=== PATIENT | female | born 1970 | race Caucasian/White ===

== ENCOUNTER 2016-09-30 17:55 | Emergency (ER) | payer OTHER, MEDICAID ==
--- NOTE | 2016-09-30 18:00 | EDPHY ---
H & P Time Seen by Provider: 09/30/16 17:57 HPI/ROS: CHIEF COMPLAINT: Acute exacerbation of chronic chest pain HISTORY OF PRESENT ILLNESS: The patient presents to the emergency department with an acute exacerbation of chronic chest pain which began several hours ago. The patient has a complicated past medical history including hydrocephalus and spina bifida. The patient is status post right BKA. The patient has had several hospitalizations over the past 2 months. She was admitted initially for evaluation of chest pain and had a negative evaluation for acute pulmonary embolism or ischemia. The patient subsequently return to the ED received an evaluation including anti medics and pain medications and was discharged home. The patient returned shortly thereafter and was readmitted to the medicine service. During that time she was evaluated for upper abdominal pain with a CT scan of her abdomen pelvis which was normal. 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 She denies any fever or flank pain. She complains of an anterior chest pain and associated vomiting. In reviewing her records this is a fairly typical presentation of her prior visits. The paramedics do report that the patient is reportedly on the no narcotics list at her custodial. REVIEW OF SYSTEMS: A comprehensive 10 point review of systems is otherwise negative aside from elements mentioned in the history of present illness. Source: Patient Exam Limitations: No limitations - Medical/Surgical History Hx Asthma: No Hx Chronic Respiratory Disease: No Hx Diabetes: No Hx Cardiac Disease: No Hx Renal Disease: No Hx Cirrhosis: No Hx Alcoholism: No Hx HIV/AIDS: No Hx Splenectomy or Spleen Trauma: No Other PMH: right BKA, urostomy, anxiety, depression, PE, high cholesterol, PTSD , hydrocephalus/arnold chiari malformation s/p vp strategy shunt,amputated toes from left foot, pancreatitis Apr 2016 - Social History Smoking Status: Never smoked - Physical Exam Exam: General Appearance: Alert, no distress Eyes: Pupils equal and round no pallor or injection ENT, Mouth: Mucous membranes moist Respiratory: There are no retractions, lungs are clear to auscultation Cardiovascular: Regular rate and rhythm Gastrointestinal: Abdomen is soft and nontender, no masses, bowel sounds normal Neurological: A&O, normal motor function, normal sensory exam, normal cranial nerves Skin: Warm and dry, no rashes Musculoskeletal: Neck is supple nontender Extremities: Right BKA Constitutional: Initial Vital Signs Temperature (C) 36.8 C 09/30/16 18:04 Heart Rate 98 09/30/16 18:04 Respiratory Rate 18 09/30/16 18:04 Blood Pressure 125/75 H 09/30/16 18:04 O2 Sat (%) 96 09/30/16 18:04 O2 Delivery Mode Room Air Allergies/Adverse Reactions: ondansetron HCl [From Zofran (as hydrochloride)] Allergy (Severe, Verified 08/20 14:24) Other-Enter Comments amoxicillin trihydrate [From Augmentin] Allergy (Verified 08/20/16 14:24) ketorolac tromethamine [From Toradol] Allergy (Verified 08/13/16 04:05) potassium clavulanate [From Augmentin] Allergy (Verified 08/20/16 14:24) tramadol Allergy (Verified 08/20/16 14:24) vancomycin Allergy (Verified 08/20/16 14:24) Home Medications: Medication Instructions Recorded ALPRAZolam [Xanax 0.25 MG (*)] 0.25 mg PO TID PRN 08/13/16 Atorvastatin Calcium [Lipitor 40 40 mg PO DAILY 08/13/16 mg (*)] Ergocalciferol [Vitamin D2 (*)] 50,000 unit PO TU 08/13/16 Gabapentin [Neurontin 300 MG (*)] 600 mg PO TID 08/13/16 Levothyroxine [Synthroid 50 mcg 50 mcg PO DAILY06 08/13/16 (*)] Promethazine HCl [Phenergan 25mg 25 mg PO DAILY PRN 08/13/16 (*)] Sertraline HCl [Zoloft 50mg (*)] 50 mg PO DAILY 08/13/16 Topiramate [Topamax 100MG (*)] 100 mg PO HS 08/13/16 tiZANidine HCL [Zanaflex 2MG (*)] 2 mg PO BID 08/13/16 risperiDONE [Risperdal] 2 mg PO HS 08/20/16 Acetaminophen [Tylenol 325mg (*)] 650 mg PO Q4HRS PRN #0 tab 08/22/16 Ciprofloxacin [Cipro] 500 mg PO BID@1000,2000 #13 tab 08/22/16 Magnesium Hydroxide [Milk of 30 ml PO DAILY PRN #0 udcup 08/22/16 Magnesia (*)] Polyethylene Glycol 3350 [Miralax 17 gm PO DAILY #0 pkt 08/22/16 17 gm (*)] Sennosides/Docusate Sodium 1 - 2 tab PO BID #0 tab 08/22/16 [Senokot-S] oxyCODONE IR [Oxycodone Ir (*)] 5 mg PO Q4HRS PRN #0 tab 08/22/16 Promethazine HCl [Phenergan 25mg 25 mg PO TID PRN #20 tab 09/30/16 (*)] oxyCODONE/APAP 5/325 [Percocet 1 - 2 tab PO Q6-8PRN PRN #20 tab 09/30/16 5/325 (RX)] Medical Decision Making ED Course/Re-evaluation: I reviewed the patient's past medical records including her 3 prior ED visits, 2 hospitalizations, CT scan of the chest, CT scan of the abdomen and blood work. EKG in the emergency department is unrevealing. I did attempt to reach Dr. Aguilar and was unsuccessful. I did speak with his midlevel provider who was unable to provide much history on the patient. The patient does not appear to be on a no narcotics list. The patient does have a remote history of narcotic abuse per her report. The patient will be discharged back to the custodial with a prescription for Phenergan and Percocet. I will defer to Dr Aguilar to address her ongoing pain needs. She has had an extensive workup of chest pain and abdominal pain to date and I do not feel this needs to be repeated. Differential Diagnosis: Differential diagnosis considered includes pericarditis, chronic chest pain, intra-abdominal infection, arrhythmia - Data Points Medications Given: Discontinued Medications Ondansetron HCl (Zofran Odt) 4 mg PO EDNOW ONE Stop: 09/30/16 18:28 Last Admin: 09/30/16 18:38 Dose: Not Given Oxycodone/Acetaminophen (Percocet 5/325) 2 tab PO EDNOW ONE Stop: 09/30/16 19:32 Last Admin: 09/30/16 19:38 Dose: 2 tab Promethazine HCl (Phenergan) 12.5 mg PO EDNOW ONE Stop: 09/30/16 18:40 Last Admin: 09/30/16 18:43 Dose: 12.5 mg Departure - Departure Disposition: Home, Routine, Self-Care Clinical Impression: Chronic chest pain, Nausea Condition: Good Instructions: Chest Pain (ED) Additional Instructions: 1. Please discuss your pain medications with your regular physician Dr. Aguilar. 2. Phenergan as needed for nausea. 3. Percocet as needed for pain. Referrals: LOIS JOHNSON [Primary Care Provider] - As per Instructions Prescriptions: oxyCODONE/APAP 5/325 [Percocet 5/325 (RX)] 1 - 2 tab PO Q6-8PRN PRN #20 tab PRN Reason: for pain Promethazine HCl [Phenergan 25mg (*)] 25 mg PO TID PRN #20 tab PRN Reason: for pain
[2016-09-30 18:06] VITALS: O2SAT 96
[2016-09-30] MEDS ORDERED: ONDANSETRON DISINTEGRATING 4 MG TAB PO ONE (18:27)
[2016-09-30] MEDS ORDERED: PROMETHAZINE HCL 25 MG TAB PO ONE (18:39)
[2016-09-30] MEDS ORDERED: OXYCODONE/APAP 5/325 TAB PO ONE (19:31)
--- NOTE | 2016-09-30 19:52 | CPEKG ---
Heart Rate: 92 RR Interval: 652 P-R Interval: 128 QRSD Interval: 92 QT Interval: 356 QTC Interval: 441 P [place]: 38 QRS [place]: 70 T Wave [place]: 43 EKG Severity - ABNORMAL ECG - EKG Impression: SINUS RHYTHM EKG Impression: PROBABLE INFERIOR INFARCT, OLD Electronically Signed By: aHny Valdivia 30-Sep-2016 20:00:37
[2016-09-30 20:28] VITALS: BP 91/77; PULSE 90; RESP 20; TEMP 98.1
== END 2016-09-30 21:11 | disposition home or self-care (01) ==
LOC: EDUNIT#
DX: R07.9 Chest pain, unspecified (principal); G89.29 Other chronic pain; R11.0 Nausea

== ENCOUNTER 2016-10-06 22:13 | Emergency (ER) | payer OTHER, MEDICAID ==
[2016-10-06] MEDS ORDERED: ONDANSETRON 4 MG/2 ML VIAL IVP ONE (22:25)
[2016-10-06 22:26] VITALS: PULSE 98; RESP 16; TEMP 97.9; O2SAT 95
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
--- NOTE | 2016-10-06 23:13 | CPEKG ---
Heart Rate: 86 RR Interval: 698 P-R Interval: 152 QRSD Interval: 88 QT Interval: 376 QTC Interval: 450 P [place]: 43 QRS [place]: 41 T Wave [place]: 45 EKG Severity - NORMAL ECG - EKG Impression: SINUS RHYTHM Electronically Signed By: Julisa Hanson 07-Oct-2016 06:37:40
[2016-10-06] MEDS ORDERED: ONDANSETRON 4 MG/2 ML VIAL ONE (23:26)
[2016-10-06 23:33] LABS: % IMMATURE GRANULYOCYTES 0.2 % (0.0-1.1); ABSOLUTE IMMATURE GRANULOCYTES 0.01 10^3/uL (0.00-0.10); ADD DIFF? NO; ADD MORPH? NO; ADD SCAN? NO; ATYPICAL LYMPHOCYTE FLAG 10 (0-99); FRAGMENT RBC FLAG 0 (0-99); HEMATOCRIT 34.5 % (38.0-47.0); HEMOGLOBIN 11.5 g/dL (12.6-16.3); LEFT SHIFT FLG 0 (0-99); LIPEMIA HEMOLYSIS FLAG 80 (0-99); MEAN CELL HEMOGLOBIN 29.7 pg (27.9-34.1); MEAN CELL HEMOGLOBIN CONCENTR. 33.3 g/dL (32.4-36.7); MEAN CELL VOLUME 89.1 fL (81.5-99.8); MEAN PLATELET VOLUME 8.9 fL (8.7-11.7); PLATELET CLUMPS FLAG 0 (0-99); PLATELET COUNT 223 10^3/uL (150-400); RED BLOOD CELL COUNT 3.87 10^6/uL (4.18-5.33); RED CELL DISTRIBUTION WIDTH 15.4 % (11.5-15.2)
[2016-10-06] MEDS ORDERED: PROMETHAZINE HCL 25 MG/ML VIAL ONE (23:40)
[2016-10-06] MEDS ORDERED: PROMETHAZINE HCL 25 MG/ML VIAL IVP ONE (23:44)
--- NOTE | 2016-10-06 23:55 | DX ---
AP Upright and Lateral Chest History: Chest pain. Findings: The heart and mediastinum are normal. Pulmonary vascularity is normal. The lungs are clear. There is no pleural fluid. A pneumothorax is not identified. Incidentally, a ventriculoperitoneal sh unt traverses the chest on the right side. An azygos lobe is seen. Impression: Chest negative for acute abnormality with findings as detailed above.
[2016-10-06 23:56] LABS: ANION GAP 11 mEq/L (8-16); CALCIUM 9.1 mg/dL (8.5-10.4); CARBON DIOXIDE 22 mEq/l (22-31); CHLORIDE 109 mEq/L (97-110); CREATININE 0.8 mg/dL (0.6-1.0); GLOMERULAR FILTRATION RATE > 60; GLUCOSE 128 mg/dL (70-100); POTASSIUM 3.3 mEq/L (3.5-5.2); SODIUM 142 mEq/L (134-144)
[2016-10-07 00:07] LABS: TROPONIN I < 0.012 ng/mL (0-0.034)
[2016-10-07 01:38] VITALS: BP 101/75
[2016-10-07] MEDS ORDERED: NS 1,000 ML IV ONE (01:38)
== END 2016-10-07 01:44 | disposition home or self-care (01) ==
LOC: EDUNIT#
DX: R07.89 Other chest pain (principal); G89.29 Other chronic pain; Q05.9 Spina bifida, unspecified
CPT/HCPCS: 71020; 93005; 96361; 96374; 99285; J2405; J2550

== ENCOUNTER 2016-10-10 20:05 | Emergency (ER) | payer OTHER, MEDICAID ==
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
[2016-10-10] MEDS ORDERED: NS 1,000 ML IV ONE (20:32)
[2016-10-10] MEDS ORDERED: fentaNYL 100 MCG/2 ML INJ IVP ONE (20:33)
[2016-10-10] MEDS ORDERED: PROMETHAZINE HCL 25 MG/ML VIAL IVP ONE (20:33)
--- NOTE | 2016-10-10 20:33 | CPEKG ---
Heart Rate: 108 RR Interval: 556 P-R Interval: 140 QRSD Interval: 94 QT Interval: 348 QTC Interval: 467 P [place]: 50 QRS [place]: 68 T Wave [place]: 52 EKG Severity - ABNORMAL ECG - EKG Impression: SINUS TACHYCARDIA EKG Impression: PROBABLE INFERIOR INFARCT, OLD Electronically Signed By: Tata Mendoza 10-Oct-2016 20:36:56
[2016-10-10 21:01] LABS: % IMMATURE GRANULYOCYTES 0.2 % (0.0-1.1); ABSOLUTE IMMATURE GRANULOCYTES 0.01 10^3/uL (0.00-0.10); ADD DIFF? NO; ADD MORPH? NO; ADD SCAN? YES; ATYPICAL LYMPHOCYTE FLAG 0 (0-99); FRAGMENT RBC FLAG 0 (0-99); HEMATOCRIT 39.1 % (38.0-47.0); HEMOGLOBIN 13.2 g/dL (12.6-16.3); LEFT SHIFT FLG 0 (0-99); LIPEMIA HEMOLYSIS FLAG 90 (0-99); MEAN CELL HEMOGLOBIN 30.3 pg (27.9-34.1); MEAN CELL HEMOGLOBIN CONCENTR. 33.8 g/dL (32.4-36.7); MEAN CELL VOLUME 89.7 fL (81.5-99.8); MEAN PLATELET VOLUME 9.6 fL (8.7-11.7); PLATELET COUNT 227 10^3/uL (150-400); RED BLOOD CELL COUNT 4.36 10^6/uL (4.18-5.33); RED CELL DISTRIBUTION WIDTH 15.1 % (11.5-15.2)
[2016-10-10 21:04] LABS: PLATELET CLUMPS FLAG 300 (0-99)
[2016-10-10 21:18] LABS: ANION GAP 14 mEq/L (8-16); CALCIUM 9.4 mg/dL (8.5-10.4); CARBON DIOXIDE 22 mEq/l (22-31); CHLORIDE 107 mEq/L (97-110); CREATININE 0.9 mg/dL (0.6-1.0); GLOMERULAR FILTRATION RATE > 60; GLUCOSE 106 mg/dL (70-100); SODIUM 143 mEq/L (134-144)
[2016-10-10 21:24] LABS: SCAN NEGATIVE
[2016-10-10 21:30] LABS: TROPONIN I < 0.012 ng/mL (0-0.034)
[2016-10-10] MEDS ORDERED: PROMETHAZINE HCL 25 MG/ML VIAL IM ONE (21:53)
--- NOTE | 2016-10-10 22:10 | DX ---
PA and Lateral Chest History: Chest pain. Comparison to the prior study October 06, 2016. Findings: The heart and mediastinum are normal. Pulmonary vascularity is normal. The lungs are clear. There is no pleural fluid. A pneumothorax is not identified. A ventriculoperitoneal shunt catheter i s seen traversing the chest anteriorly. There has been no significant change from the prior study. Impression: Stable chest negative for acute cardiopulmonary abnormality. Specifically, a source for c hest pain is not identified.
[2016-10-10 22:11] VITALS: RESP 16
[2016-10-10 23:26] VITALS: BP 89/71; PULSE 71; TEMP 97.9; O2SAT 91
--- NOTE | 2016-10-11 06:31 | DX ---
Upright Abdomen Reason for examination: Abdominal pain. Findings: Minimally dilated bowel loops are seen in the mid abdomen. Surgical clips in the right uppe r quadrant are consistent with previous cholecystectomy. No free air is identified. A ventriculoperit jones catheter is seen traversing the abdomen with the distal end in the pelvis, not fully characteri zed. No aggressive osseous lesion is seen. Impression: Nonspecific bowel gas pattern with minimally dilated bowel loops seen in the mid abdomen on the right side.
== END 2016-10-11 00:20 | disposition home or self-care (01) ==
LOC: EDUNIT#
DX: R07.9 Chest pain, unspecified (principal); G89.29 Other chronic pain
CPT/HCPCS: 71020; 74000; 93005; 96372; 99285; J2550

== ENCOUNTER → 2016-10-13 | Outpatient (CLI) | payer OTHER, MEDICAID ==
--- NOTE | 2016-10-13 15:59 | DX ---
Abdominal radiographs, 2 views, supine exam. HISTORY: Abdominal pain. Evaluate bowel gas. Comparison examination: October 10, 2016. FINDINGS: Nonspecific bowel gas pattern is identified without evidence of significant retained fecal material or obstructive changes. A ventriculoperitoneal shunt catheter overlies the upper abdomen and left hemipelvis. Prior decompressive laminectomy or dural ectasia and dysraphia at L4, L5, and the u pper sacrum. IMPRESSION: 1. Nonspecific bowel gas pattern without significant retained fecal material, stable from prior exam.
== END ==
LOC: BMCIMAGING 15:23
PROVIDERS: ATTEND Family Medicine
DX: R93.5 Abnormal findings on diagnostic imaging of other abdominal regions, including retroperitoneum (principal); R10.12 Left upper quadrant pain

== ENCOUNTER 2016-10-17 12:41 | Emergency (ER) | payer OTHER, MEDICAID ==
--- NOTE | 2016-10-17 13:04 | CPEKG ---
Heart Rate: 89 RR Interval: 674 P-R Interval: 136 QRSD Interval: 98 QT Interval: 372 QTC Interval: 453 P [place]: 59 QRS [place]: 60 T Wave [place]: 53 EKG Severity - BORDERLINE ECG - EKG Impression: SINUS RHYTHM EKG Impression: BORDERLINE INFERIOR Q WAVES Electronically Signed By: Sera Aguiar 17-Oct-2016 20:29:23
[2016-10-17] MEDS ORDERED: ONDANSETRON DISINTEGRATING 4 MG TAB PO ONE (13:23)
[2016-10-17] MEDS ORDERED: NS 500 ML IV ONE (13:23)
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
[2016-10-17] MEDS ORDERED: ALTEPLASE 2 MG VIAL IVP PRN (14:15)
--- NOTE | 2016-10-17 16:42 | IR ---
Imaging-Guided Peripherally Inserted Central Catheter History: Poor IV access. Chest pain.. Prophylactic Antibiotic: Cefazolin was not ordered and administered for antimicrobial prophylaxis be cause it was not medically necessary for this procedure. VTE Prophylaxis: There is not an order for VTE prophylaxis to be given within 24 hours after procedu re end time because it was not medically necessary for this procedure. Crosscutting Measure: Patient's current list of medications including all known prescriptions, over- the-counters, herbals, and vitamin/mineral/dietary supplements are reviewed. Medications' name, dosa ge, frequency, and route of administration are confirmed. Technique: Following informed consent, the right arm was prepped and draped in sterile fashion. 1% Xy locaine was used for local anesthetic. All elements of maximal sterile barrier technique including cap, mask, sterile gown, sterile gloves, large sterile sheet, hand hygiene, and 2% chlorhexidine for cutaneous antisepsis, followed. Ultrasound evaluation of potential access site was performed. After successfully identifying a patent vessel, ultrasound guidance was used to puncture the vein. A permanent recording was created for the patient's record. Ultrasound transducer was placed in sterile sleeve and used for real-time imaging guidance over steri le gel to enter the basilic vein. 0.018 measuring wire was passed centrally under fluoroscopic contro l. A skin royce with scalpel blade was followed by removing the access needle. A 5 Cameroonian pee-away she ath was followed by a 5 Cameroonian single-lumen central catheter, trimmed to 37 cm length. The tip of t he catheter was positioned centrally and the guidewire removed. A single fluoroscopic spot image was obtained in inspiration. The hub of the catheter was fixed to the skin using a sterile StatLock adhes ki device, and a sterile dressing was applied. The catheter was irrigated. Findings: The tip of the central catheter terminates at the junction of the superior vena cava and th e right atrium. Fluoroscopy: 0.1 minutes, 1 images Impression: 5 Cam[place]onian double lumen peripherally inserted central catheter is ready to use.
[2016-10-17 16:55] LABS: % IMMATURE GRANULYOCYTES 0.1 % (0.0-1.1); ABSOLUTE IMMATURE GRANULOCYTES 0.01 10^3/uL (0.00-0.10); ADD DIFF? NO; ADD MORPH? NO; ADD SCAN? NO; ATYPICAL LYMPHOCYTE FLAG 10 (0-99); FRAGMENT RBC FLAG 0 (0-99); HEMOGLOBIN 12.4 g/dL (12.6-16.3); LEFT SHIFT FLG 0 (0-99); LIPEMIA HEMOLYSIS FLAG 80 (0-99); MEAN CELL HEMOGLOBIN CONCENTR. 33.5 g/dL (32.4-36.7); MEAN CELL VOLUME 89.4 fL (81.5-99.8); MEAN PLATELET VOLUME 8.3 fL (8.7-11.7); PLATELET CLUMPS FLAG 0 (0-99); PLATELET COUNT 244 10^3/uL (150-400); RED BLOOD CELL COUNT 4.14 10^6/uL (4.18-5.33); RED CELL DISTRIBUTION WIDTH 14.7 % (11.5-15.2)
[2016-10-17] MEDS ORDERED: ONDANSETRON 4 MG/2 ML VIAL ONE (16:57)
[2016-10-17 17:05] LABS: ALANINE AMINOTRANSFERASE 40 IU/L (9-52); ALBUMIN 3.8 g/dL (3.5-5.0); ALKALINE PHOSPHATASE 82 IU/L (38-126); ANION GAP 12 mEq/L (8-16); ASPARTATE AMINOTRANSFERASE 14 IU/L (14-46); BILIRUBIN,TOTAL 0.7 mg/dL (0.1-1.4); BILIRUBIN-CONJUGATED 0.7 mg/dL (0.0-0.5); CALCIUM 9.3 mg/dL (8.5-10.4); CARBON DIOXIDE 23 mEq/l (22-31); CHLORIDE 111 mEq/L (97-110); CREATININE 0.9 mg/dL (0.6-1.0); GLOMERULAR FILTRATION RATE > 60; GLUCOSE 118 mg/dL (70-100); POTASSIUM 3.9 mEq/L (3.5-5.2); SODIUM 146 mEq/L (134-144)
[2016-10-17 17:17] LABS: TROPONIN I < 0.012 ng/mL (0-0.034)
[2016-10-17] MEDS ORDERED: PROMETHAZINE HCL 25 MG/ML INJ IVP ONE (17:22)
[2016-10-17] MEDS ORDERED: PROMETHAZINE HCL 25 MG/ML INJ ONE (17:23)
[2016-10-17] MEDS ORDERED: IOPAMIDOL (ISOVUE 370) 100 ML BTL IV ONE (17:31)
[2016-10-17] MEDS ORDERED: OXYCODONE/APAP 5/325 TAB PO ONE (18:19)
[2016-10-17 18:34] VITALS: TEMP 97.7
--- NOTE | 2016-10-17 18:37 | CT ---
CT Chest Pulmonary Angiogram With Contrast Enhancement and Multiplanar Reconstructions 2016 at 1743 Hours History: Chest pain, shortness of breath, elevated D-dimer, prior pulmonary emboli. Comparison: CT from July 2016. Technique: 1.25-mm axial multidetector helical CT angiogram imaging was performed through the chest w hile 90 mL Isovue-370 were injected intravenously without complication. The images were then transfe rred to an independent workstation where multiplanar and three-dimensional reconstructions were perfo rmed by the interpreting physician and reviewed at multiple windows. Dose reduction techniques were u tilized. CT Pulmonary Angiogram Findings: No CT evidence of definite pulmonary thromboemboli. No aortic aneur ysm or dissection. Mild cardiomegaly and mild pericardial effusion. CT Chest Findings: Groundglass opacities in both lungs which may represent mild congestive heart fail ure. Right upper azygos lobe. No pleural effusion or definite focal pneumonia. Impressions: 1. No definite pulmonary thromboemboli. 2. No aortic aneurysm or dissection. 3. Cardiomegaly and minimal pericardial effusion. 4. Groundglass opacities in both lungs which may represent mild congestive heart failure without defi nite focal pneumonia. Findings and recommendations discussed with emergency department physician, Dr. Aguiar at 1810 hours today. Final report concurs with initial preliminary interpretation. A Critical Abnormality Doc Only message has been documented for FELICIA AGUIAR in the [employer] Critical Result system on 10/17/2016 18:15, Message ID [id number].
[2016-10-17 18:55] LABS: COLOR YELLOW; LEUKOCYTE ESTERASE,URINE TRACE (NEGATIVE); NITRITE,URINE NEGATIVE (NEGATIVE)
[2016-10-17 19:00] LABS: MUCUS TRACE /lpf (NONE-1+)
[2016-10-17 21:01] VITALS: BP 121/101; PULSE 78; RESP 16; O2SAT 96
== END 2016-10-17 20:45 | disposition home or self-care (01) ==
LOC: EDUNIT#
PROC: 02HV33Z Insertion of Infusion Device into Superior Vena Cava, Percutaneous Approach (ICD-10-PCS; principal; 2016-10-17)
DX: R07.2 Precordial pain (principal)
CPT/HCPCS: 36558; 71275; 77001; 93005; 96361; 96374; 96375; 99285; C1751; J0696; J2405; J2550; Q9967

== ENCOUNTER 2016-10-29 11:32 | Inpatient (IN) | payer OTHER, MEDICAID ==
[2016-10-29] MEDS ORDERED: NS 1,000 ML IV ONE (11:49)
--- NOTE | 2016-10-29 12:16 | EDPHY ---
H & P Stated Complaint: possible UTI, N/V, Source: Patient Exam Limitations: No limitations - Personal History LMP (Females 10-55): Post Menopausal Current Tetanus/Diphtheria Vaccine: No Current Tetanus Diphtheria and Acellular Pertussis (TDAP): No - Medical/Surgical History Hx Asthma: No Hx Chronic Respiratory Disease: No Hx Diabetes: No Hx Cardiac Disease: No Hx Renal Disease: No Hx Cirrhosis: No Hx Alcoholism: No Hx HIV/AIDS: No Hx Splenectomy or Spleen Trauma: No Other PMH: right BKA, urostomy, anxiety, depression, PE, high cholesterol, PTSD , hydrocephalus/arnold chiari malformation s/p vp global shunt,amputated toes from left foot, pancreatitis Apr 2016, spina bifida- C-diff diagnosed 07/2016 - Social History Smoking Status: Never smoked Time Seen by Provider: 10/29/16 11:43 HPI/ROS: CHIEF COMPLAINT: "I have a UTI" HISTORY OF PRESENT ILLNESS: The patient feels that she has a urinary tract infection. Symptoms started 2 days ago with flank pain, chills, and discomfort similar to previous. She has a history of urostomy by ileal conduit. This has been since due to neurogenic bladder. She has no change in output in the urine although it is a little bit darker. She has some generalized abdominal pain. No chest pain or shortness of breath. No rash or lesions. No other associated complaints or modifying factors. Changes the bag every 7 days. PREVIOUS ABDOMINAL SURGERIES/DIAGNOSES: Neurogenic bladder with urostomy NPO: this morning early REVIEW OF SYSTEMS: Ten systems reviewed and are negative unless otherwise noted in the HPI EXAMINATION: General Appearance: Alert, no distress Head: normocephalic, atraumatic Eyes: Pupils equal and round, no conjunctival pallor or injection ENT, Mouth: Mucous membranes moist. Uvula midline. No lesions. Neck: Normal inspection, supple, non-tender Respiratory: Lungs are clear to auscultation . No wheezing, rhonchi or crackles. Cardiovascular: Tachycardic rate with regular rhythm. Gastrointestinal: Abdomen is Soft with mild generalized tenderness. No point tenderness. No rigidity or tympany. Right lower quadrant urostomy with cloudy urine in bag . Right CVA tenderness that is mild. Nonacute abdomen. Neurological: A&O x4 with slow cognition. Nonfocal. Strength symmetric in both limbs. Skin: Warm and dry, no rash Extremities: Nontender. right lower extremity status post [id number] amputation remotely. Range of motion intact. Psychiatric: Mood and affect normal DIFFERENTIAL DIAGNOSES: Including but not limited to Urosepsis, pyelonephritis, UTI, enteritis, viral illness MDM: 11:45 a.m. complaints of urinary tract infection the patient with the urostomy by ileal conduit. Feels the same to her as she has had in the past. She is nonfocal does have some slow cognition and reportedly was confused at her sending facility. We did get noticed that she would be coming to us due to the possibility of pyelonephritis versus sepsis. She is mildly hypertensive and mildly tachycardic. She is awake and alert in no acute distress. I did immediately order the sepsis workup upon examination. 1:55 p.m. UTI with probable pyelonephritis and possible sepsis. Lactic acid is 1.1, though she does not meet severe sepsis criteria at this point. Her vital signs remained within acceptable limits. I discussed the case with the hospitalist and they agree to admit her. I have also discussed the case with Dr. Bauer. At this time Dr. Bauer will assume care of the patient. SUPERVISION: Patient was evaluated in conjunction with the supervising physician. Please see their note for details. (Westley Stearns) Constitutional: Initial Vital Signs Temperature (C) 99.0 F 10/29/16 11:33 Heart Rate 117 H 10/29/16 11:33 Respiratory Rate 18 10/29/16 11:33 Blood Pressure 94/79 L 10/29/16 11:33 O2 Sat (%) 96 10/29/16 11:33 O2 Delivery Mode Room Air Allergies/Adverse Reactions: ondansetron HCl [From Zofran (as hydrochloride)] Allergy (Severe, Verified 08/20 14:24) Other-Enter Comments amoxicillin trihydrate [From Augmentin] Allergy (Verified 08/20/16 14:24) ketorolac tromethamine [From Toradol] Allergy (Verified 08/13/16 04:05) potassium clavulanate [From Augmentin] Allergy (Verified 08/20/16 14:24) tramadol Allergy (Verified 08/20/16 14:24) vancomycin Allergy (Verified 08/20/16 14:24) Home Medications: Medication Instructions Recorded ALPRAZolam [Xanax 0.25 MG (*)] 0.25 mg PO TID PRN 08/13/16 Atorvastatin Calcium [Lipitor 40 40 mg PO DAILY 08/13/16 mg (*)] Ergocalciferol [Vitamin D2 (*)] 50,000 unit PO TU 08/13/16 Gabapentin [Neurontin 300 MG (*)] 600 mg PO TID 08/13/16 Levothyroxine [Synthroid 50 mcg 50 mcg PO DAILY06 08/13/16 (*)] Sertraline HCl [Zoloft 50mg (*)] 50 mg PO DAILY 08/13/16 Topiramate [Topamax 100MG (*)] 100 mg PO HS 08/13/16 tiZANidine HCL [Zanaflex 2MG (*)] 2 mg PO BID 08/13/16 risperiDONE [Risperdal] 2 mg PO HS 08/20/16 Acetaminophen [Tylenol 325mg (*)] 650 mg PO Q4HRS PRN #0 tab 08/22/16 Magnesium Hydroxide [Milk of 30 ml PO DAILY PRN #0 udcup 08/22/16 Magnesia (*)] oxyCODONE/APAP 5/325 [Percocet 1 - 2 tab PO Q6-8PRN PRN #20 tab 09/30/16 5/325 (RX)] Methenamine Delisa [Hiprex 1 gm (*)] 1 gm PO DAILY 10/29/16 Polyethylene Glycol 3350 [Miralax 17 gm PO DAILY PRN 10/29/16 17 gm (*)] Promethazine HCl [Phenergan 25mg 25 mg PO TID PRN 10/29/16 (*)] Medical Decision Making - Diagnostics Imaging: Chest x-ray independently reviewed by me reveals no acute disease. (Krissy Bauer) ED Course/Re-evaluation: 3:00 p.m.-this patient was seen and examined by me. She has a urinary tract infection and is taking Keflex. She continues to have foul-smelling urine, right flank pain and began vomiting last night. She feels that she has a persistent urinary tract infection. However, she also generalized abdominal discomfort and elevated LFTs. CT scan is pending. She has a very difficult IV access, so we are waiting for a PICC line to be placed. In the meanwhile ultrasound guidance was used by me to place a left upper extremity peripheral IV. She has a slight cough, which is unchanged. Chest is clear to auscultation and I do not suspect pneumonia. Abdomen is soft, mild right upper quadrant tenderness, without peritoneal signs. (Krissy Bauer) Differential Diagnosis: Differential diagnosis includes UTI, pyelonephritis, pneumonia, cholecystitis, influenza, cellulitis. (Krissy Bauer) - Data Points Laboratory Results: Laboratory Results 10/29/16 13:45 10/29/16 12:45 10/29/16 10/29/16 10/29/16 13:45 13:10 12:45 WBC REJ REJ RBC REJ REJ Hgb REJ REJ Hct REJ REJ MCV REJ REJ MCH REJ REJ MCHC REJ REJ RDW REJ REJ Plt Count REJ REJ MPV REJ REJ Neut % (Auto) REJ REJ Lymph % (Auto) REJ REJ Hawkins % (Auto) REJ REJ Eos % (Auto) REJ REJ Baso % (Auto) REJ REJ Nucleat RBC Rel Count REJ REJ Absolute Neuts (auto) REJ REJ Absolute Lymphs (auto) REJ REJ Absolute Monos (auto) REJ REJ Absolute Eos (auto) REJ REJ Absolute Basos (auto) REJ REJ Absolute Nucleated RBC REJ REJ Immature Gran % REJ REJ Immature Gran # REJ REJ PT 13.5 SEC (12.0-15.0) INR 1.04 (0.83-1.16) APTT 20.0 L SEC (23.0-38.0) VBG Lactic Acid 1.1 mmol/L REJ (0.7-2.1) Sodium 140 mEq/L (134-144) Potassium 3.9 mEq/L (3.5-5.2) Chloride 104 mEq/L (97-110) Carbon Dioxide 21 L mEq/l (22-31) Anion Gap 15 mEq/L (8-16) BUN 24 H mg/dL (7-23) Creatinine 1.0 mg/dL (0.6-1.0) Estimated GFR 59 Glucose 110 H mg/dL (70-100) Calcium 9.4 mg/dL (8.5-10.4) Total Bilirubin 1.2 mg/dL (0.1-1.4) Conjugated Bilirubin 0.5 mg/dL (0.0-0.5) Unconjugated Bilirubin 0.7 mg/dL (0.0-1.1) AST 155 H IU/L (14-46) ALT 361 H IU/L (9-52) Alkaline Phosphatase 170 H IU/L (38-126) Total Protein 8.3 H g/dL (6.3-8.2) Albumin 4.2 g/dL (3.5-5.0) Lipase 26.0 IU/L (23-300) Departure - Departure Disposition: [facility] Inpatient Acute Clinical Impression: Acute pyelonephritis Condition: Good
--- NOTE | 2016-10-29 12:39 | DX ---
Chest, AP and Lateral History: Fever. Cough. Possible UTI. Meets sepsis criteria. Comparison: October 10, 2016. Findings: Heart size is within normal limits. Pulmonary vascularity appears normal. The lungs are henry ar. No evidence for pleural effusion or pneumothorax. Surgical clips are seen in the upper abdomen. A ventriculoperitoneal shunt is seen overlying the right chest. Impression: No evidence for acute cardiopulmonary abnormality.
[2016-10-29 13:11] LABS: INR 1.04 (0.83-1.16); PROTIME(PATIENT) 13.5 SEC (12.0-15.0)
[2016-10-29] MEDS ORDERED: ALTEPLASE 2 MG VIAL IVP PRN (13:15)
[2016-10-29 13:27] LABS: ALANINE AMINOTRANSFERASE 361 IU/L (9-52); ALBUMIN 4.2 g/dL (3.5-5.0); ALKALINE PHOSPHATASE 170 IU/L (38-126); ANION GAP 15 mEq/L (8-16); ASPARTATE AMINOTRANSFERASE 155 IU/L (14-46); BILIRUBIN,TOTAL 1.2 mg/dL (0.1-1.4); BILIRUBIN-CONJUGATED 0.5 mg/dL (0.0-0.5); BILIRUBIN-UNCONJUGATED 0.7 mg/dL (0.0-1.1); CALCIUM 9.4 mg/dL (8.5-10.4); CARBON DIOXIDE 21 mEq/l (22-31); CHLORIDE 104 mEq/L (97-110); GLOMERULAR FILTRATION RATE 59; GLUCOSE 110 mg/dL (70-100); POTASSIUM 3.9 mEq/L (3.5-5.2); SODIUM 140 mEq/L (134-144); TOTAL PROTEIN 8.3 g/dL (6.3-8.2)
[2016-10-29] MEDS ORDERED: ACETAMINOPHEN 325 MG TAB PO PRN (14:34)
[2016-10-29] MEDS ORDERED: oxyCODONE IR 5 MG TAB PO PRN (14:34)
[2016-10-29] MEDS ORDERED: ONDANSETRON 4 MG/2 ML VIAL IVP PRN (14:34)
[2016-10-29] MEDS ORDERED: ONDANSETRON DISINTEGRATING 4 MG TAB PO PRN (14:34)
[2016-10-29] MEDS ORDERED: IOPAMIDOL (ISOVUE-300) 100 ML BTL IV ONE ×2 (14:44→17:30)
--- NOTE | 2016-10-29 15:16 | GHP ---
[f rep st] HISTORY AND PHYSICAL DATE OF ADMISSION: 10/29/2016 DATE OF EVALUATION: 10/29/2016 CHIEF COMPLAINT: Abdominal pain. HISTORY OF PRESENT ILLNESS: This is a 46-year-old female with multiple medical problems who presents with primarily abdominal complaints. She has had nausea and vomiting today. She was seen by her PCP who sent her in to the Emergency Department. This has been associated with some increased abdominal distention, as well as abdominal pain. She says that the abdominal pain is localized, slightly under her stoma. She also notes that she has had a headache that started since yesterday. She has a history of congenital malformations including an Arnold-Chiari status post FINANCIAL SERVICES AGENT shunt, as well as a congenital urologic issue for which an ileal conduit was placed at . She has had multiple urinary tract infections, though this feels different than her normal urinary tract infections. She has been recently treated for C diff. Is not having any significant diarrhea. She has had a history of pancreatitis before. She resides at [facility]. PAST MEDICAL/SURGICAL HISTORY: 1. History of recent C diff. 2. 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 3. Bipolar. 4. Arnold-Chiari status post FINANCIAL SERVICES AGENT shunt. 5. Hypothyroid. 6. History of pancreatitis. 7. 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 8. History of a PE more than a year ago, not on anticoagulation. 9. Spina bifida which caused her neurogenic bladder. 10. Functional quadriplegia. 11. Major depression. 12. History of cholecystectomy. MEDICATIONS: Please see medication reconciliation. ALLERGIES: Zofran, amoxicillin, Toradol, tramadol, vancomycin. FAMILY HISTORY: Mother had non-Hodgkin lymphoma. SOCIAL HISTORY: She is originally from [place], [place]. She currently lives at [facility]. She does not drink or smoke. REVIEW OF SYSTEMS: A 10-point review of systems was conducted and was negative , except per HPI. PHYSICAL EXAM: VITAL SIGNS: Blood pressure 103/79, heart rate is 99, respiration rate 16, saturating 94% on room air, temperature is 37.1. GENERAL: The patient is a pleasant female who appears comfortable, in no acute distress. HEENT: Shows her mucous membranes to be moist. CHEST: Shows a scar over her right clavicle which is well healed. CARDIOVASCULAR: Shows a regular rate and rhythm. She is borderline tachycardic. There are no murmurs, rubs, or gallops. PULMONARY: Shows her lungs clear to auscultation bilaterally. ABDOMEN: Shows her to be soft. She is distended. She has an ileostomy draining cloudy urine. She is tender to palpation mostly in the right lower quadrant. She has no Roland sign. She has a non-peritoneal abdomen. SKIN: Shows no rash. : There is no Turcios. NEUROLOGIC: Shows her to be alert and oriented x3. She is grossly nonfocal. PSYCHIATRIC: Shows normal mood and affect. EXTREMITIES: Shows her to have a right BKA. LABS: There is no CBC. INR is 1.04. Lactate is 1.1. Bicarb is 21. AST is 155, ALT is 361, alkaline phosphatase is 172, total protein is 8.3. DATA: 1. I discussed these with Westley Stearns. Will admit to [facility]. 2. I personally viewed and interpreted her chest x-ray. This shows nothing acute. 3. I reviewed her old chart. IMPRESSION AND PLAN: This is a 46-year-old female who presents with primarily abdominal complaints. 1. Abdominal pain/nausea/vomiting/elevated LFTs: Differential includes choledocholithiasis (status post cholecystectomy), appendicitis, small bowel obstruction, urinary tract infection. She met SIRS criteria on admission. She needs a CT scan of her abdomen which has been ordered, but not yet performed. We were having problems with IV access and PICC is being placed. She has received 1 L of fluids; I will continue IV fluids. I will empirically give her meropenem, pending results of blood cultures, urinary cultures, and further imaging. I will order influenza given her overall picture. 2. History of Clostridium difficile: No diarrhea currently. Will follow. 3. History of a cerebrovascular accident: Permanently resides at [facility]. Will have PT and OT evaluate her. 4. History of Arnold-Chiari malformation, as well as a headache: I have ordered a CT non-contrast. She has a FINANCIAL SERVICES AGENT shunt in place. Certainly could be implicated in her primary abdominal complaints. 5. History of bipolar. 6. History of pancreatitis: Normal lipase today. 7. History of a pulmonary embolism, not on anticoagulation: I will place her on prophylactic doses of Lovenox. 8. History of spina bifida. CODE STATUS: Code status is full. ADDENDUM: CT scans reviewed. CBC still pending. CTH shows possible FINANCIAL SERVICES AGENT shunt dysfunction - consider NSG consult. CT abd pelvis shows constipation - aggressive bowel reg. Hold abx for now, follow clinical course. Check hepatitis serologies, APAP level. /[id number]/MODL MTDD
[2016-10-29 15:24] LABS: COLOR YELLOW; LEUKOCYTE ESTERASE,URINE TRACE (NEGATIVE); NITRITE,URINE NEGATIVE (NEGATIVE)
[2016-10-29] MEDS ORDERED: MAGNESIUM HYDROXIDE 30 ML UDCUP PO PRN (15:33)
[2016-10-29] MEDS ORDERED: OXYCODONE/APAP 5/325 TAB PO PRN ×2 (15:33→16:40)
[2016-10-29] MEDS ORDERED: PROMETHAZINE HCL 25 MG TAB PO PRN (15:33)
[2016-10-29 15:41] LABS: RBC,URINE 50-182 /hpf (0-3); WBC,URINE 15-25 /hpf (0-3)
--- NOTE | 2016-10-29 16:07 | WOCRNPDOC ---
WOCRN Advanced Assessment Note - Urostomy Assessment, Advanced Urostomy Urostomy Appliance Intact: Yes Urostomy Appliance Currently in Use: Two Piece Flat, 1 3/4 Stoma Color: Red Stoma Turgor: Moist Stoma Shape: Oval Stoma Height: Protruding Slightly Mucocutaneus Junction: Intact Urostomy Effluent: Urine, Mucous Peristomal Skin: Intact Urostomy Comment/Treatment Details: Callled to ED to consult for urostomy appliance. Patient had a Convatec 2-piece flat appliance, barrier intact. mobile qa testerVICTORINO Lassiter had removed the drainage pouch and requested another. We do not have Convatec 1 3/4 drainage pouches, so I performed a full appliance change and replaced existing barrier w/ a Shaji 2-piece 2 1/4 system. Peristomal skin is presently intact w/ no breakdown. Intact mucocutaneous junction. Urine is presently clear with occasional streaks of mucous. Stoma is moist/red, and did bleed slightly when site was cleaned. Patient tolerated the appliance change without c/o pain. Report texted to mobile qa testerVICTORINO Lassiter.
[2016-10-29] MEDS: PROMETHAZINE HCL 25 MG/ML INJ IVP PRN ×2 (16:53→22:23)
--- NOTE | 2016-10-29 17:13 | DX ---
Imaging-Guided Peripherally Inserted Central Catheter Clinical Indications: Central line access for medications. Crosscutting Measure #226: Current tobacco user: no. Patient was told to speak with primary care pro vider about cessation counseling. Technique: Following informed consent, the right arm was prepped and draped in sterile fashion. 1% Xy locaine was used for local anesthetic. All elements of maximal sterile barrier technique including c ap, mask, sterile gown, sterile gloves, large sterile sheet, hand hygiene, and 2% chlorhexidine for c utaneous antisepsis, followed. Ultrasound transducer was placed in sterile sleeve and sterile gel and used for real-time imaging guidance to enter the basilic vein. A 0.018 measuring wire was passed laura trally under fluoroscopic control. A skin royce with a scalpel blade was followed by removing the acce ss needle. A 4 Bahamian peel-away sheath was followed by a 4 Bahamian single-lumen central catheter , tri mmed to 35 cm length. The tip of the catheter was positioned centrally and the guidewire removed. A s polo fluoroscopic spot image was obtained in inspiration. The hub of the catheter was fixed to the s kin using a sterile StatLock adhesive device, and a sterile dressing was applied. The catheter was ir rigated. Findings: The tip of the central catheter terminates at the junction of the superior vena cava and th e right atrium. Fluoroscopy: 0.1 of fluoroscopy time was utilized. Images: 2 Impression: 4 Bahamian single lumen peripherally inserted central catheter is ready to use.
[2016-10-29] MEDS: GABAPENTIN 300 MG CAP PO SCH ×2 (17:44→20:58)
--- NOTE | 2016-10-29 18:25 | CT ---
CT Scan of the Head (Without Contrast) Clinical History: 46-year-old female inpatient with history of a prior CHAIN MAKER HAND shunt and CVAs in 2010 and 2012, complaining of a headache. Technique: Axial unenhanced images were obtained from the vertex through the skull base, reformatted at 5.00 and 1.50 mm increments, and reviewed in bone, brain, and subdural windows. Images were repro cessed in parasagittal and paracoronal planes. The DFOV is 25.0 cm. Dose reduction techniques were ut ilized. Comparison Study: None currently available. Findings: There is a ventriculoperitoneal shunt catheter which enters the right posterior parietal ca lvarium, crosses the midline, and terminates in the superior aspect of the left frontal horn. The fouzia tricles and basilar cisterns are enlarged. As a point of reference, the right lateral ventricle measu res 29 mm in diameter, the left lateral ventricle measures 24 mm in diameter, and the third ventricle measures 15 mm in diameter. There is underlying cerebral cortical atrophy. There is some localized e ncephalomalacia in the posterior right frontal white matter adjacent to the cephalad portion of the r ight lateral ventricle. A right frontal madalyn hole is present. 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 There is no acute midline shift, or other evidence of mass effect. There is no abnormal intra or extra-axial blood collection, or acute infarction identified. There is some noemy r mucosal thickening in the floor the left maxillary sinus and also involving the ethmoids (left grea ter than right). 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 The sphenoid sinuses are patent. T here is presumed cerumen in the right external auditory canal. The mastoids are patent. There is a sh allow sella turcica. The pineal gland, and the orbits are within normal limits. Impression: 1. Ventriculomegaly with a CHAIN MAKER HAND shunt present (although there potentially may be malfunctioning given h er cephalgia, and correlation with previous studies would be helpful to assess for interval change in the size of the ventricles). 2. Underlying cerebral cortical atrophy. 3. Remote postoperative change following a prior decompressive craniotomy for a Chiari malformation. If there is further clinical concern regarding the patient's symptoms, MR imaging is suggested, if no t otherwise contraindicated.
[2016-10-29] MEDS ORDERED: MAGNESIUM CITRATE 300 ML BOTTLE PO ONE ×2 (18:59→20:30)
--- NOTE | 2016-10-29 19:22 | CT ---
CT Scan of the Abdomen and Pelvis (With Contrast) Clinical Indications: Abdominal pain. Flank pain. Chills, nausea, and vomiting. UTI times 2 days. History of a congenital urological issue, with ileal conduit. Arnold-Chiari malformation and spina bifida, with SIGN MAINTENANCE shunt. Paraplegic. Technique: Dilute contrast was given orally prior to the scan. During the machine power injection o f 90 mL Isovue-300 intravenously, multidetector helical CT imaging was performed from the diaphragm t o the pubic symphysis. Coronal and parasagittal reformatted images are reviewed on the workstation. Dose reduction techniques were utilized. Comparison: August 20, 2016. Findings: The lung bases are clear. Specifically, no consolidation or effusion. There is a mild am ount of atelectasis. There is mild biliary dilatation intrahepatic, going down to a dilated common duct. This is probably normal for this patient. The common duct measures 13 mm. This overall scenario is more prominent c ompared to the prior CT. There is no mass. Pancreatic head is normal. The patient is post cholecys tectomy. The liver is otherwise normal, without a mass. Adrenal glands, pancreas, spleen, and kidneys are stable. There is a small atrophic right kidney, bu t it still enhances, and excretes. The left kidney is the dominant normal one. No hydronephrosis on either side. The bowels are completely impacted with stool throughout the colon. There are air-fluid levels in th e small bowel, however, I think this probably is backup from the amount of stool that is in the colon . There is no wall thickening. No mesenteric stranding. The diameter of the colon is within normal limits. No free fluid or free air. Right lower quadrant ileal conduit is noted. There is no right lower garett drant inflammatory process. The uterus and adnexal structures are within normal limits. Bones and soft tissues are unchanged. Impressions 1. The predominant abnormality is significant stool impaction throughout the colon. 2. Intrahepatic biliary dilatation, going down to a 13- to 14-mm common duct, more prominent compare d to the prior scan. I suspect this is probably a range of normal for this patient, given her parapl egia and postcholecystectomy state. 3. No free air or free fluid. 4. Air-fluid level in the small bowel, without wall thickening or distention. I believe this is pro bably just backup from an impacted colon. E:nissa
[2016-10-29] MEDS: TOPIRAMATE 100 MG TAB PO SCH (20:20)
[2016-10-29] MEDS: risperiDONE 2 MG TAB PO SCH (20:20)
[2016-10-29] MEDS: tiZANidine HCL 2 MG TAB PO SCH (20:20)
[2016-10-29] MEDS: NS 1,000 ML IV SCH (20:21)
[2016-10-29] MEDS ORDERED: MEROPENEM 1 GM in NS 100 ML IV SCH (22:00)
[2016-10-30 00:57] LABS: % IMMATURE GRANULYOCYTES 0.3 % (0.0-1.1); ABSOLUTE IMMATURE GRANULOCYTES 0.02 10^3/uL (0.00-0.10); ADD DIFF? NO; ADD MORPH? NO; ADD SCAN? NO; ATYPICAL LYMPHOCYTE FLAG 0 (0-99); FRAGMENT RBC FLAG 0 (0-99); HEMATOCRIT 32.7 % (38.0-47.0); HEMOGLOBIN 11.2 g/dL (12.6-16.3); LEFT SHIFT FLG 0 (0-99); LIPEMIA HEMOLYSIS FLAG 90 (0-99); MEAN CELL HEMOGLOBIN CONCENTR. 34.3 g/dL (32.4-36.7); MEAN CELL VOLUME 90.6 fL (81.5-99.8); PLATELET CLUMPS FLAG 10 (0-99); PLATELET COUNT 218 10^3/uL (150-400); RED BLOOD CELL COUNT 3.61 10^6/uL (4.18-5.33); RED CELL DISTRIBUTION WIDTH 13.9 % (11.5-15.2)
[2016-10-30] MEDS: NS 1,000 ML IV SCH ×2 (01:30→07:45)
[2016-10-30] MEDS: PROMETHAZINE HCL 25 MG/ML INJ IVP PRN (03:49)
[2016-10-30] MEDS: OXYCODONE/APAP 5/325 TAB PO PRN ×3 (03:50→17:10)
[2016-10-30] MEDS: LEVOTHYROXINE 50 MCG TAB PO SCH (04:06)
[2016-10-30 04:12] LABS: % IMMATURE GRANULYOCYTES 0.2 % (0.0-1.1); ABSOLUTE IMMATURE GRANULOCYTES 0.01 10^3/uL (0.00-0.10); ADD DIFF? NO; ADD MORPH? NO; ADD SCAN? NO; ATYPICAL LYMPHOCYTE FLAG 10 (0-99); FRAGMENT RBC FLAG 0 (0-99); HEMATOCRIT 32.9 % (38.0-47.0); HEMOGLOBIN 10.9 g/dL (12.6-16.3); LEFT SHIFT FLG 0 (0-99); LIPEMIA HEMOLYSIS FLAG 80 (0-99); MEAN CELL HEMOGLOBIN 29.9 pg (27.9-34.1); MEAN CELL HEMOGLOBIN CONCENTR. 33.1 g/dL (32.4-36.7); MEAN CELL VOLUME 90.1 fL (81.5-99.8); PLATELET CLUMPS FLAG 0 (0-99); PLATELET COUNT 225 10^3/uL (150-400); RED BLOOD CELL COUNT 3.65 10^6/uL (4.18-5.33); RED CELL DISTRIBUTION WIDTH 14.2 % (11.5-15.2)
[2016-10-30 04:22] LABS: INR 1.2 (0.83-1.16); PROTIME(PATIENT) 15.2 SEC (12.0-15.0)
[2016-10-30 04:32] LABS: ALANINE AMINOTRANSFERASE 193 IU/L (9-52); ALBUMIN 2.7 g/dL (3.5-5.0); ALKALINE PHOSPHATASE 108 IU/L (38-126); ANION GAP 7 mEq/L (8-16); ASPARTATE AMINOTRANSFERASE 60 IU/L (14-46); BILIRUBIN,TOTAL 0.9 mg/dL (0.1-1.4); CALCIUM 8.4 mg/dL (8.5-10.4); CARBON DIOXIDE 23 mEq/l (22-31); CHLORIDE 113 mEq/L (97-110); CREATININE 0.9 mg/dL (0.6-1.0); GLOMERULAR FILTRATION RATE > 60; GLUCOSE 82 mg/dL (70-100); POTASSIUM 3.8 mEq/L (3.5-5.2); SODIUM 143 mEq/L (134-144); TOTAL PROTEIN 5.8 g/dL (6.3-8.2)
[2016-10-30] MEDS ORDERED: NS 500 ML IV ONE (06:30)
--- NOTE | 2016-10-30 10:07 | HOSPPROG ---
Hospitalist Progress Note Assessment/Plan: DIAGNOSIS: # ACUTE ABDOMINAL PAIN, UNCERTAIN ETIOLOGY -at this point I think this is most likely constipation and will treat her for constipation and see how she responds -will start regular diet and monitor her response to that # RECENT C DIFFICILE AT [facility] -will place her on isolation for this # HYPOTENSION AND SIRS -she has had no fevers or white count elevation, and has a benign abdominal examination at this time; no other site or source of infection identified At this time # PAST HISTORY ILEAL CONDUIT -stoma looks good and is functioning well # history of bipolar disorder, pulmonary embolism, hypothyroidism, cholecystectomy, all stable SUBJECTIVE: Mild abdominal discomfort No nausea, is hungry and wants to eat No chills or sweats No other new symptoms OBJECTIVE Vitals reviewed: Remained hypotensive through much of the night but now after fluid resuscitation blood pressure is much better; other vital signs stable with no fever Exam: alert oriented skin warm dry color ok resps not labored lungs clear BSs heart regular abd soft nondistended nontender, bowel sounds present; urostomy looks excellent and functioning well with clear yellow urine limbs warm, no edema iv site ok Objective: Vital Signs Temp Pulse Resp BP Pulse Ox 36.5 C 72 15 99/64 L 90 L 10/30/16 07:40 10/30/16 07:40 10/30/16 07:40 10/30/16 07:40 10/30/16 07:40 Laboratory Results 10/30/16 04:00 10/30/16 04:00 10/29/16 10/30/16 10/31/16 06:59 06:59 06:59 Intake Total 1000 3303 Output Total 925 Balance 75 3303 PT 15.2 SEC (12.0-15.0) H 10/30/16 04:00 INR 1.20 (0.83-1.16) H 10/30/16 04:00 ICD10 Worksheet Patient Problems: Problems Problem Status Diagnosed Acute pyelonephritis Acute UTI (urinary tract infection) Acute Upper abdominal pain Acute Chest pain Acute Chronic chest pain Acute Nausea Acute
[2016-10-30] MEDS: PROMETHAZINE HCL 25 MG TAB PO PRN ×2 (10:41→17:22)
[2016-10-30] MEDS: POLYETHYLENE GLYCOL 3350 17 GM PKT PO PRN (10:41)
[2016-10-30] MEDS: ENOXAPARIN 40 MG/0.4 ML SYR SC SCH (10:41)
[2016-10-30] MEDS: tiZANidine HCL 2 MG TAB PO SCH ×2 (10:41→22:58)
[2016-10-30] MEDS: ATORVASTATIN CALCIUM 40 MG TAB PO SCH (10:41)
[2016-10-30] MEDS: METHENAMINE HIPP 1 GM TAB PO SCH (10:42)
[2016-10-30] MEDS: GABAPENTIN 300 MG CAP PO SCH ×3 (10:42→22:58)
[2016-10-30] MEDS: SERTRALINE HCL 50 MG TAB PO SCH (10:42)
[2016-10-30] MEDS: TOPIRAMATE 100 MG TAB PO SCH (22:58)
[2016-10-30] MEDS: risperiDONE 2 MG TAB PO SCH (22:58)
[2016-10-31] MEDS: GABAPENTIN 300 MG CAP PO SCH ×4 (01:59→21:46)
[2016-10-31] MEDS: OXYCODONE/APAP 5/325 TAB PO PRN ×5 (01:59→20:29)
[2016-10-31] MEDS: LEVOTHYROXINE 50 MCG TAB PO SCH (07:26)
[2016-10-31] MEDS: PROMETHAZINE HCL 25 MG TAB PO PRN ×3 (07:26→20:29)
[2016-10-31] MEDS: METHENAMINE HIPP 1 GM TAB PO SCH (08:48)
[2016-10-31] MEDS: tiZANidine HCL 2 MG TAB PO SCH ×2 (08:48→21:46)
[2016-10-31] MEDS: ATORVASTATIN CALCIUM 40 MG TAB PO SCH (08:48)
[2016-10-31] MEDS: SERTRALINE HCL 50 MG TAB PO SCH (08:48)
[2016-10-31] MEDS: ENOXAPARIN 40 MG/0.4 ML SYR SC SCH (08:51)
--- NOTE | 2016-10-31 12:29 | HOSPPROG ---
Hospitalist Progress Note Assessment/Plan: DIAGNOSIS: # ACUTE ABDOMINAL PAIN, UNCERTAIN ETIOLOGY -at this point I think this is most likely constipation and will continue to treat her for constipation and see how she responds -will start regular diet and monitor her response to that -she had mild liver enzyme elevation at admission that was resolving rapidly , question if there is some viral infection, no related findings on CT # PAIN AT UROSTOMY AND RIGHT FLANK PAIN, QUESTION POSSIBLE UTI AND OR PYELO # RECENT C DIFFICILE AT [facility] -will place her on isolation for this # HYPOTENSION AND SIRS resolved -she has had no fevers or white count elevation, and has benign abdominal examinations; # PAST HISTORY ILEAL CONDUIT/UROSTOMY # history of strokes with R side weakness # history of Arnold chiari malf. -> MECHANIST Shunt # history of spina bifida causing neurogenic bladder; # history of bipolar disorder, pulmonary embolism, hypothyroidism, cholecystectomy, all stable SUBJECTIVE: The patient states she had 1 bowel movement yesterday, she describes this as very small but the nurses described a large stool. She still feels discomfort consistent with constipation in the left lower and lower mid abdomen. She has been able to eat some food, has not had vomiting. Today she describes that she has pain at her stoma at her urostomy and did have some bleeding from that last night. She also mentions now that she has some right flank pain that started probably yesterday. She denies chills or sweats. She also mentions feeling slightly wheezy today but has no cough. OBJECTIVE Vitals reviewed: BPs better past 24 hours, no fever, respirations have been good and does not hypoxemic Exam: -alert oriented -skin warm dry color ok -resps not labored -heart regular -abd soft nondistended, with mild left lower quadrant tenderness without guarding or rebound. bowel sounds present; at the urostomy she has now cloudy urine than yesterday but there is currently no bleeding -there is some very mild right costovertebral angle tenderness -limbs warm, no edema, BKA stump okay -iv site ok Urine culture is growing and Enterococcus but only at [id number] colonies no other specific organism Objective: Vital Signs Temp Pulse Resp BP Pulse Ox 36.9 C 94 16 108/77 98 10/31/16 08:27 10/31/16 08:27 10/31/16 08:27 10/31/16 08:27 10/31/16 08:27 Laboratory Results 10/30/16 04:00 10/30/16 04:00 10/30/16 10/31/16 11/01/16 06:59 06:59 06:59 Intake Total 1000 4363 500 Output Total 925 600 300 Balance 75 3763 200 PT 15.2 SEC (12.0-15.0) H 10/30/16 04:00 INR 1.20 (0.83-1.16) H 10/30/16 04:00 ICD10 Worksheet Patient Problems: Problems Problem Status Diagnosed Acute pyelonephritis Acute UTI (urinary tract infection) Acute Upper abdominal pain Acute Chest pain Acute Chronic chest pain Acute Nausea Acute
[2016-10-31] MEDS ORDERED: BISACODYL 10 MG SUPP PR PRN (13:21)
[2016-10-31] MEDS ORDERED: POLYETHYLENE GLYCOL 3350 17 GM PKT PO PRN (13:21)
[2016-10-31] MEDS ORDERED: MAGNESIUM HYDROXIDE 30 ML UDCUP PO PRN (13:21)
[2016-10-31] MEDS ORDERED: LACTULOSE 20 GM/30 ML UDCUP PO PRN (13:21)
[2016-10-31 15:45] LABS: COLOR YELLOW; LEUKOCYTE ESTERASE,URINE TRACE (NEGATIVE); NITRITE,URINE NEGATIVE (NEGATIVE)
[2016-10-31 16:08] LABS: AMORPHOUS PRESENT /hpf (NONE-1+); BACTERIA TRACE /hpf (NONE SEEN); MUCUS 1+ /lpf (NONE-1+); WBC,URINE 15-25 /hpf (0-3)
[2016-10-31 16:12] LABS: UNIDENTIFIED CRYSTAL PRESENT /hpf (NONE SEEN)
[2016-10-31] MEDS: TOPIRAMATE 100 MG TAB PO SCH (21:46)
[2016-10-31] MEDS: ALPRAZolam 0.25 MG TAB PO PRN (21:46)
[2016-10-31] MEDS: risperiDONE 2 MG TAB PO SCH (21:46)
[2016-10-31] MEDS: SENNOSIDES/DOCUSATE SODIUM TAB PO SCH (21:46)
[2016-11-01] MEDS: LEVOTHYROXINE 50 MCG TAB PO SCH (06:46)
[2016-11-01] MEDS: tiZANidine HCL 2 MG TAB PO SCH ×2 (08:09→20:04)
[2016-11-01] MEDS: OXYCODONE/APAP 5/325 TAB PO PRN ×3 (08:09→20:03)
[2016-11-01] MEDS: ALPRAZolam 0.25 MG TAB PO PRN ×3 (08:10→20:04)
[2016-11-01] MEDS: GABAPENTIN 300 MG CAP PO SCH ×3 (08:10→22:35)
[2016-11-01] MEDS: SENNOSIDES/DOCUSATE SODIUM TAB PO SCH ×2 (08:10→20:04)
[2016-11-01] MEDS: SERTRALINE HCL 50 MG TAB PO SCH (08:10)
[2016-11-01] MEDS: ATORVASTATIN CALCIUM 40 MG TAB PO SCH (08:10)
[2016-11-01] MEDS: METHENAMINE HIPP 1 GM TAB PO SCH (08:10)
[2016-11-01] MEDS: ENOXAPARIN 40 MG/0.4 ML SYR SC SCH (08:11)
--- NOTE | 2016-11-01 13:54 | HOSPPROG ---
Hospitalist Progress Note Assessment/Plan: DIAGNOSIS: # ACUTE ABDOMINAL PAIN, UNCERTAIN ETIOLOGY -at this point I think this is most likely constipation and will continue to treat her for constipation and see how she responds -continue regular diet and monitor her response to that -she had mild liver enzyme elevation at admission that was resolving rapidly , question if there is some viral infection, no related findings on CT # CHRONIC ILEAL CONDUIT/UROSTOMY COLONIZATION -I do not think she has infection at this time as she is not really symptomatic -I spoke with Dr. Hackett from [facility], who she has seen repeatedly and he feels that she has chronic colonization and should not be treated unless she is truly symptomatic for infection # RECENT C DIFFICILE AT [facility] -will place her on isolation for this # HYPOTENSION AND SIRS resolved -she has had no fevers or white count elevation, and has benign abdominal examinations; # PAST HISTORY ILEAL CONDUIT/UROSTOMY # history of strokes with R side weakness # history of Arnold chiari malf. 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 She does have some decrease in abdominal pain since then but still has some midline lower abdominal discomfort and still feels constipated. The right-sided flank pain she described yesterday is notably improved and nearly resolved. She still has some very mild discomfort at her ostomy but no further bleeding noted. She is eating well at this time and working with therapies. OBJECTIVE Vitals reviewed: no fever, respirations have been good and is not hypoxemic, blood pressure is good Exam: -alert oriented -skin warm dry color ok -resps not labored -heart regular -abd soft nondistended, no tenderness today. bowel sounds present; at the urostomy she has now cloudy urine than yesterday but there is currently no bleeding -there is some very mild right costovertebral angle tenderness -limbs warm, no edema, BKA stump okay -iv site ok Urine culture is growing and Enterococcus but only at [phone] colonies no other specific organism Repeat urinalysis with 10-15 white blood cells and trace leukocyte esterase Objective: Vital Signs Temp Pulse Resp BP Pulse Ox 36.4 C 74 16 96/69 L 99 11/01/16 11:28 11/01/16 11:28 11/01/16 11:28 11/01/16 11:28 11/01/16 11:28 Microbiology 10/29/16 15:44 Urine Culture - Final Urine,Clean Catch Enterococcus Faecalis Three [place] Types Laboratory Results 10/30/16 04:00 10/30/16 04:00 10/31/16 11/01/16 11/02/16 06:59 06:59 06:59 Intake Total 4363 1900 Output Total 600 1720 Balance 3763 180 PT 15.2 SEC (12.0-15.0) H 10/30/16 04:00 INR 1.20 (0.83-1.16) H 10/30/16 04:00 ICD10 Worksheet Patient Problems: Problems Problem Status Diagnosed Acute pyelonephritis Acute UTI (urinary tract infection) Acute Upper abdominal pain Acute Chest pain Acute Chronic chest pain Acute Nausea Acute
[2016-11-01] MEDS: TOPIRAMATE 100 MG TAB PO SCH (20:04)
[2016-11-01] MEDS: PROMETHAZINE HCL 25 MG TAB PO PRN (20:04)
[2016-11-01] MEDS: risperiDONE 2 MG TAB PO SCH (20:04)
[2016-11-02] MEDS: LEVOTHYROXINE 50 MCG TAB PO SCH (05:45)
[2016-11-02] MEDS: OXYCODONE/APAP 5/325 TAB PO PRN ×3 (05:45→13:47)
[2016-11-02] MEDS: PROMETHAZINE HCL 25 MG TAB PO PRN ×2 (07:44→13:47)
[2016-11-02 07:50] VITALS: BP 102/79; O2SAT 96
[2016-11-02 08:19] VITALS: PULSE 86; RESP 15; TEMP 98.1
[2016-11-02] MEDS: ATORVASTATIN CALCIUM 40 MG TAB PO SCH (10:03)
[2016-11-02] MEDS: GABAPENTIN 300 MG CAP PO SCH ×2 (10:03→16:11)
[2016-11-02] MEDS: tiZANidine HCL 2 MG TAB PO SCH (10:03)
[2016-11-02] MEDS: METHENAMINE HIPP 1 GM TAB PO SCH (10:04)
[2016-11-02] MEDS: SERTRALINE HCL 50 MG TAB PO SCH (10:05)
[2016-11-02] MEDS: SENNOSIDES/DOCUSATE SODIUM TAB PO SCH (10:05)
[2016-11-02] MEDS: ENOXAPARIN 40 MG/0.4 ML SYR SC SCH (10:05)
--- NOTE | 2016-11-02 14:43 | PDIAF ---
- Diagnosis Diagnosis: constipation/? viral syndrome Code Status: Full Code - Medication Management Discharge Medications: Medications to Continue on Transfer ALPRAZolam [Xanax 0.25 MG (*)] 0.25 mg PO TID PRN 08/13/16 [Last Taken 10/28/16] Atorvastatin Calcium [Lipitor 40 mg (*)] 40 mg PO DAILY 08/13/16 [Last Taken 12/10] Ergocalciferol [Vitamin D2 (*)] 50,000 unit PO TU 08/13/16 [Last Taken 10/28/16] Gabapentin [Neurontin 300 MG (*)] 600 mg PO TID 08/13/16 [Last Taken 10/29/16] Levothyroxine [Synthroid 50 mcg (*)] 50 mcg PO DAILY06 08/13/16 [Last Taken 12/10] Sertraline HCl [Zoloft 50mg (*)] 50 mg PO DAILY 08/13/16 [Last Taken 10/29/16] Topiramate [Topamax 100MG (*)] 100 mg PO HS 08/13/16 [Last Taken 10/28/16] tiZANidine HCL [Zanaflex 2MG (*)] 2 mg PO BID 08/13/16 [Last Taken 10/28/16] risperiDONE [Risperdal] 2 mg PO HS 08/20/16 [Last Taken 10/28/16] Acetaminophen [Tylenol 325mg (*)] 650 mg PO Q4HRS PRN #0 tab 08/22/16 [Last Taken 10/28/16] oxyCODONE/APAP 5/325 [Percocet 5/325 (*)] 1 - 2 tab PO Q6-8PRN PRN #20 tab 09/30 [Last Taken 10/27/16] Methenamine Delisa [Hiprex 1 gm (*)] 1 gm PO DAILY 10/29/16 [Last Taken 10/29/16] Promethazine HCl [Phenergan 25mg (*)] 25 mg PO TID PRN 10/29/16 [Last Taken Unknown] Polyethylene Glycol 3350 [Miralax 17 gm (*)] 17 gm PO DAILY #0 pkt 11/02/16 [ Last Taken Unknown] Promethazine HCl [Phenergan Injection] 6.25 - 12.5 mg IVP Q6HRS PRN #0 vial 04/11 [Last Taken Unknown] Discharge Medications: Refer to the Discharge Home Medication list for PRN reason. - Orders Services needed: Registered Nurse, Certified Public Relations Representative, Master 4 H Youth Development Specialist Diet Recommendation: no restrictions on diet Diet Texture: Regular Texture Diet Additional: Make an appointment at [facility] to review management of urostomy (referred by Dr Hackett or urology) - Follow Up Care Current Providers and Referrals: Bell Garcia MD [Primary Care Provider] - As per Instructions
[2016-11-02] MEDS: POLYETHYLENE GLYCOL 3350 17 GM PKT PO PRN (16:11)
--- NOTE | 2016-11-02 16:32 | PDDCSUM ---
Discharge Summary Discharge Summary: DISCHARGE DIAGNOSES: # ACUTE ABDOMINAL PAIN, UNCERTAIN ETIOLOGY # CHRONIC ILEAL CONDUIT/UROSTOMY COLONIZATION # RECENT C DIFFICILE AT [facility], no sign of recurrence here # HYPOTENSION AND SIRS resolved # PAST HISTORY ILEAL CONDUIT/UROSTOMY PROCEDURES: CT ABDOMEN, NO ACUTE FINDINGS CT HEAD, NO ACUTE FINDINGS COMPLICATIONS: NONE HOSPITAL COURSE: This patient with chronic abdominal and bowel symptoms, presented with nausea vomiting, dehydration, and abdominal pain that migrated in location here. She also was very constipated. She did have mild liver transaminase elevations but nl bilirubin, no fever, no wbc elevation. During her hospital stay her symptoms improved markedly and she is now eating well and has little pain, it seems not far from baseline. She did require multiple laxative and enemas for her constipation here, but was able to evacuate well with that. Her liver enzymes improved quickly. CT abdomen did not show any cause of her pain or liver enzyme elevations. It is possible this was viral, or from a small gal stone she could have passed though none seen and she is s/p cholecystectomy. Of note, the patient uses a lot of laxative chronically, including MOM. This may have undesired effects on her colon in the long run. Miralax was added here. Also she has some chronic narcotics, and I discussed with her and her that these may aggravate problems for her, so ongoing search for other methods of pain management is desired. 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 At present she is able to void, and adding a colostomy to urostomy could be quite problematic, so no surgical eval is considered.At this time she is stable for DC from the standpoint of her presenting symptoms. She did have one episode of gross hematuria here that resolved. She did not have symptoms suggesting UTI with her chronic ileal conduit/urostomy. She had minimal wbcs and multiple low colony count organisms in urine studies ordered in the ER. She mentioned that her urologist Dr Hackett had referred her to see ID doctor at [facility] but that she was unable to get an appt. I spoke to Dr Hackett and he was interested in any help with UTI prevention, prompting the referral. I spoke with Dr Velasquez and he will facilitate getting the patient in to [facility] in the near future. Her ostomy was asessed by ostomy care nurse here. She is transferred back to [facility] where she resides. MEDICATION CHANGES: -addition of miralax scheduled -discontinue MOM FOLLOW UP: -[facility] -ongoing care with Dr Reyes -primary care at [facility]
== END 2016-11-02 16:59 | DRG 391 ==
LOC: F1N 16:30
PROVIDERS: ADMIT Student in an Organized Health Care Education/Training Program; ATTEND Internal Medicine
DX: R10.84 Generalized abdominal pain (principal); R53.2 Functional quadriplegia; K59.00 Constipation, unspecified; N31.9 Neuromuscular dysfunction of bladder, unspecified; Q05.4 Unspecified spina bifida with hydrocephalus; F43.10 Post-traumatic stress disorder, unspecified; Z89.511 Acquired absence of right leg below knee; Z89.422 Acquired absence of other left toe(s); Z93.6 Other artificial openings of urinary tract status; Z93.59 Other cystostomy status; Z86.711 Personal history of pulmonary embolism; Z98.2 Presence of cerebrospinal fluid drainage device
CPT/HCPCS: 97110-GO; 97110-GP; 97163-GP; 97166-GO; 97530-GP; C1751; G0480; G8978-GP-CM; G8979-GP-CL; G8987-GO-CL; G8988-GO-CL; J0696; J1650; J2185; J2550; Q9967

== ENCOUNTER 2016-11-04 17:40 | Emergency (ER) | payer OTHER, MEDICAID ==
--- NOTE | 2016-11-04 17:50 | EDPHY ---
H & P HPI/ROS: CHIEF COMPLAINT: Chest pain, N/V, multiple complaints. HISTORY OF PRESENT ILLNESS: The patient is a 46-year-old female with multiple medical problems including CVA, Arnold-Chiari status post SENIOR JAVA DEVELOPER shunt, pulmonary embolism, spina bifida, bipolar disease, and depression. She arrives by ambulance from [facility] where she lives. She presents with vomiting and with chest pain that began 2.5 hours ago. The pain radiates up to her right jaw and down her right arm. She admits associated nausea, vomiting x4, and abdominal pain. She has been unable to keep food or fluids down and states that she has vomited 4 times today. In fact, at the time of my interview, her main complaint seems to be vomiting. She denies hematemesis, fever, chills, diarrhea , or other complaints. This patient was discharged from the hospital 2 days ago after a negative abdominal pain workup. She had negative abdominal and head CTs at that time. She was diagnosed with constipation. EMS administered Aspirin 324mg PO en route. Upon questioning, her chest pain seems to have improved. She does not feel short of breath. She does have a history of pulmonary embolism, not on anticoagulation. REVIEW OF SYSTEMS: A ten point review of systems was performed and is negative with the exception of the items mentioned in the HPI. * Source: Patient Exam Limitations: No limitations - Medical/Surgical History Hx Asthma: No Hx Chronic Respiratory Disease: No Hx Diabetes: No Hx Cardiac Disease: No Hx Renal Disease: No Hx Cirrhosis: No Hx Alcoholism: No Hx HIV/AIDS: No Hx Splenectomy or Spleen Trauma: No Other PMH: 1. History of Clostridium difficile. 2. History of CVA with resultant right-sided weakness. 3. Arnold-Chiari status post SENIOR JAVA DEVELOPER shunt. 4. 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 5. History of PE not on anticoagulation. 6. Spina bifida with neurogenic bladder and urostomy. 7. Functional quadriplegia. 8. Bipolar disease. 9. Depression. 10. History of pancreatitis. 11. Hypothyroidism. The 12 status post cholecystectomy - Social History Smoking Status: Never smoked Additional Social History: Lives at [facility]. She is . - Physical Exam Exam: General Appearance: Alert. Vital signs reviewed. Blood pressure 126/90, heart rate 108 at triage. Eyes: Pupils equal and round, no conjunctival injection, no discharge. Anicteric. ENT, Mouth: Mucous membranes are slightly dry, no oropharyngeal erythema or edema. Poor dentition. Neck: No lymphadenopathy, supple. Respiratory: Lungs are clear to auscultation; no wheezes, rales, or rhonchi. Cardiovascular: Regular rate and rhythm; no murmur, rub, or gallop. Gastrointestinal: Yellow fluid present in urostomy bag. Abdomen is soft. Diffuse mild tenderness. No guarding or rebound. No masses or organomegaly, bowel sounds normal. Skin: Warm and dry, no rashes on exposed skin, normal color. Back: Nontender to palpation over the thoracolumbar spine. No CVAT. Extremities: No lower extremity edema, no left calf tenderness or swelling. Right BKA, well-healed stump. Neurological: Alert and oriented. Moving all four extremities easily and equally. Psychiatric: Normal affect. Constitutional: Initial Vital Signs Temperature (C) 37 C 11/04/16 17:59 Heart Rate 108 H 11/04/16 17:59 Respiratory Rate 17 11/04/16 17:59 Blood Pressure 126/90 H 11/04/16 17:59 O2 Sat (%) 98 11/04/16 17:59 O2 Delivery Mode Room Air O2 (L/minute) 2 Allergies/Adverse Reactions: ondansetron HCl [From Zofran (as hydrochloride)] Allergy (Severe, Verified 11/04 18:50) Other-Enter Comments amoxicillin trihydrate [From Augmentin] Allergy (Verified 11/04/16 18:50) ketorolac tromethamine [From Toradol] Allergy (Verified 11/04/16 18:50) potassium clavulanate [From Augmentin] Allergy (Verified 11/04/16 18:50) tramadol Allergy (Verified 11/04/16 18:50) vancomycin Allergy (Verified 11/04/16 18:50) Home Medications: Medication Instructions Recorded ALPRAZolam [Xanax 0.25 MG (*)] 0.25 mg PO TID PRN 08/13/16 Atorvastatin Calcium [Lipitor 40 40 mg PO DAILY 08/13/16 mg (*)] Ergocalciferol [Vitamin D2 (*)] 50,000 unit PO TU 08/13/16 Gabapentin [Neurontin 300 MG (*)] 600 mg PO TID 08/13/16 Levothyroxine [Synthroid 50 mcg 50 mcg PO DAILY06 08/13/16 (*)] Sertraline HCl [Zoloft 50mg (*)] 50 mg PO DAILY 08/13/16 Topiramate [Topamax 100MG (*)] 100 mg PO HS 08/13/16 tiZANidine HCL [Zanaflex 2MG (*)] 2 mg PO BID 08/13/16 risperiDONE [Risperdal] 2 mg PO HS 08/20/16 Acetaminophen [Tylenol 325mg (*)] 650 mg PO Q4HRS PRN #0 tab 08/22/16 oxyCODONE/APAP 5/325 [Percocet 1 - 2 tab PO Q6-8PRN PRN #20 tab 09/30/16 5/325 (*)] Methenamine Delisa [Hiprex 1 gm (*)] 1 gm PO DAILY 10/29/16 Promethazine HCl [Phenergan 25mg 25 mg PO TID PRN 10/29/16 (*)] Polyethylene Glycol 3350 [Miralax 17 gm PO DAILY #0 pkt 11/02/16 17 gm (*)] Promethazine HCl [Phenergan 6.25 - 12.5 mg IVP Q6HRS PRN #0 11/02/16 Injection] vial Medical Decision Making - Diagnostics Imaging: Single-view chest x-ray shows no evidence of pneumonia. ED Course/Re-evaluation: This patient is known to me from previous emergency department encounters. She was recently discharged from the hospital after an evaluation for abdominal pain. I have reviewed the records of that hospitalization. Her initial complaint to the paramedics was apparently chest pain. She is not hypoxic, tachypneic, or tachycardic at the time of my evaluation. Heart sounds are regular. She is breathing comfortably and does not have pleuritic chest pain (she has a history of pulmonary embolus and is not on anticoagulation). After further discussion it does not appear that chest pain is ongoing and I am choosing to address her complaint of a vomiting. I do not suspect an acute coronary syndrome or other cardiac issue at this time. At the time of my evaluation her main complaint is vomiting and abdominal pain. She states that she has vomited 4 times today. No hematemesis. Phenergan 25mg rectal suppository administered for nausea. Morphine 6mg IM administered for pain. It was my initial impression that she did not have venous access. However, she is noted to have a central line. 2054: Reassessed patient. She is feeling better and will try to tolerate ice chips. Her abdomen remained soft with mild diffuse tenderness, no peritoneal signs. She has not vomited while in the emergency department. I do not think that she has an acute medical problem. I do not suspect a bowel obstruction. She recently underwent an extensive evaluation for abdominal pain. She is not ill-appearing today. As above, I do not think that she has an acute coronary syndrome and and and a.m. not pursuing that diagnosis. In discussion with her, she is comfortable returning to [facility]. Transportation is arranged. Differential Diagnosis: I considered a differential diagnosis that includes but is not limited to bowel obstruction, gastritis, gastroenteritis, appendicitis, and urinary tract infection. - Data Points Medications Given: Discontinued Medications Morphine Sulfate (Morphine) 6 mg IM EDNOW ONE Stop: 11/04/16 20:02 Last Admin: 11/04/16 20:15 Dose: 6 mg Promethazine HCl (Phenergan Rectal) 25 mg [place] EDNOW ONE Stop: 11/04/16 18:58 Last Admin: 11/04/16 19:23 Dose: 25 mg Departure - Departure Disposition: Home, Routine, Self-Care Clinical Impression: Upper abdominal pain Nausea & vomiting Qualifiers: Vomiting type: unspecified Vomiting Intractability: non-intractable Qualifier Code: (R11.2) Nausea with vomiting, unspecified Condition: Good Instructions: Acute Nausea and Vomiting (ED), Acute Abdominal Pain (ED) Additional Instructions: Drink plenty of fluids and be sure to get rest. Follow up with your primary care provider if symptoms are not improving in the next 1-2 days. Return to the emergency department if you experience serious worsening of condition. Referrals: Bell Garcia MD [Primary Care Provider] - As per Instructions Report Scribed for: Tata Mendoza Report Scribed by: Julio Valenzuela Date of Report: 11/04/16 Time of Report: 17:53 Physician Review and Approval Statement: 11/04/16 17:49 Portions of this note were transcribed by the medical geneticist. I, Dr. Tata Mendoza, personally performed the history, physical exam, and medical decision- making; and confirmed the accuracy of the information in the transcribed note.
[2016-11-04 18:03] VITALS: TEMP 98.6
--- NOTE | 2016-11-04 18:25 | DX ---
Portable AP chest. 11/04/2016 at 1821 History: Chest pain Comparison study: October 29, 2016. Findings: Lungs are clear. Heart size is normal. A right-sided jugular central venous catheter extends to the mid right atrium. No pneumothorax. Impression: Negative chest. Right-sided central venous catheter extends to the mid right atrium.
[2016-11-04] MEDS ORDERED: PROMETHAZINE HCL 25 MG SUPPR PR ONE (18:57)
[2016-11-04 18:58] VITALS: RESP 16
[2016-11-04 22:05] VITALS: BP 108/91; PULSE 101; O2SAT 97
== END 2016-11-04 22:00 | disposition home or self-care (01) ==
LOC: EDUNIT#
DX: R11.2 Nausea with vomiting, unspecified (principal); R10.84 Generalized abdominal pain; Z86.73 Personal history of transient ischemic attack (TIA), and cerebral infarction without residual deficits; Z90.49 Acquired absence of other specified parts of digestive tract

== ENCOUNTER 2016-11-08 17:39 | Emergency (ER) | payer OTHER, MEDICAID ==
[2016-11-08 17:49] VITALS: RESP 18
--- NOTE | 2016-11-08 17:56 | CPEKG ---
Heart Rate: 106 RR Interval: 566 P-R Interval: 140 QRSD Interval: 90 QT Interval: 336 QTC Interval: 447 P Bryant: 60 QRS Bryant: 65 T Wave Bryant: 17 EKG Severity - ABNORMAL ECG - EKG Impression: SINUS TACHYCARDIA EKG Impression: PROBABLE INFERIOR INFARCT, AGE INDETERMINATE Electronically Signed By: Henrry Shfaer 10-Nov-2016 08:41:44
[2016-11-08] MEDS ORDERED: NS 500 ML IV ONE (17:59)
[2016-11-08] MEDS ORDERED: PROMETHAZINE HCL 25 MG/ML INJ IVP ONE (17:59)
--- NOTE | 2016-11-08 18:26 | EDPHY ---
H & P Stated Complaint: Chest pain, feels similar to previous PE, worked up 11/04/16 for chest pain HPI/ROS: CHIEF COMPLAINT: Chest Pain HISTORY OF PRESENT ILLNESS: Chest pain that started 45 minutes to 1 hour ago. It is left-sided retrosternal. Radiates into the shoulder. She is minimally ambulatory but it did worsen when she ambulated with her walker and prosthetic. No shortness of breath, cough, fever, chills or recent illness. It is worse when she lays down. Some improvement with sitting up. No abdominal pain. Some nausea. no recent travel or surgery. She was recently in the hospital and does have a history of a PE approximately 1 year ago. She was treated for 6 months with anticoagulants and they were discontinued. She was also here for chest pain lasting a week ago where she was ruled out for any acute coronary syndrome. No other associated complaints or modifying factors. FAMILY HISTORY CARDIAC: CAD with Previous ID 2 years ago REVIEW OF SYSTEMS: Ten systems reviewed and are negative unless otherwise noted in the HPI EXAMINATION: General Appearance: Alert, no distress , unkempt Head: normocephalic, atraumatic Eyes: Pupils equal and round, no conjunctival pallor or injection ENT, Mouth: Mucous membranes moist. Uvula midline. Neck: Normal inspection, supple, non-tender Respiratory: mild rhonchi. No wheezing, crackles or diminishment. Cardiovascular: Tachycardic rate of 110 beats per minute. Normal rhythm. Pulses intact distally. Symmetric radial pulses. The left DP is 2+. Gastrointestinal: Abdomen is soft and nontender . No tympany or rigidity. No CVA tenderness. Urostomy in place without any abnormal appearance Neurological: A&O, nonfocal. Skin: Warm and dry, no rash Extremities: Right lower extremity status post BKA. Normal appearance of both extremities with reported baseline range of motion per patient Psychiatric: Mood and affect normal DIFFERENTIAL DIAGNOSES: Including but not limited to 1. Acute Chest Pain 2. ACS 3. Stable Angina 4. Pneumonia 5. PE 6. GERD 7. Malingering MDM: 6:16 p.m. chest pain of 45 minutes duration. Laboratory studies are pending at this time. EKG is unchanged from previous showing sinus tachycardia. No acute ischemia. 8:00 p.m. due to patient's vasculopathy, she is a very difficult stick. There have been multiple attempts made over the past hour and a half no runs successful. At this time though we do have an IV in the right AC that is injectable. We will have ordered a CT scan of the chest rule out PE at this time. Troponin is negative. The remainder of her labs are now being run 9:15 p.m. ultrasound was used to place a left EJ. We were then notified by radiologist that they are unable to inject to this. We will order a D-dimer at this time. 10:15 p.m. D-dimer is elevated 0.76. I notify Dr. Holland in radiology. she will place a peripheral intravenous catheter by ultrasound guidance and then obtain a CT scan of the chest angiogram to rule out PE. 11:10 p.m. notified by a radiologist Dr. Holland that the CT of the chest reveals no evidence of PE. She says there are no acute findings of any kind on this study. I have re-evaluated the patient several times throughout her stay in the emergency department. She has been asking for pain medications several times, but she has remained hemodynamically stable in no acute distress. The repeat troponin is pending at this time. 12:55 a.m. repeat troponin is negative. This makes this a 6 hour troponin from the time of her onset of pain. 2-troponins, normal EKG, normal chest x-ray, normal CT scan of the chest. No evidence of ischemia from any aspect. She will be discharged home with instructions to follow up with Cardiology and her primary care physician. She is comfortable with this plan and Will be discharged back to her intermediate in good condition with stable vital signs. EKG: Interpreted by Dr. Coello Rate is 106 beats per minute, sinus tachycardia. AK interval 140. QT interval 336. T-wave inversions only in AVR and V1. SUPERVISION:Patient was evaluated in conjunction with the supervising physician. Please see their note for details. Source: Patient, Old records - Personal History LMP (Females 10-55): Unknown Current Tetanus/Diphtheria Vaccine: Yes Current Tetanus Diphtheria and Acellular Pertussis (TDAP): Yes - Medical/Surgical History Hx Asthma: No Hx Chronic Respiratory Disease: No Hx Diabetes: No Hx Cardiac Disease: No Hx Renal Disease: No Hx Cirrhosis: No Hx Alcoholism: No Hx HIV/AIDS: No Hx Splenectomy or Spleen Trauma: No Other PMH: 1. History of Clostridium difficile. 2. History of CVA with resultant right-sided weakness. 3. Arnold-Chiari status post TIME PIECE REPAIRER shunt. 4. 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 5. History of PE not on anticoagulation. 6. Spina bifida with neurogenic bladder and urostomy. 7. Functional quadriplegia. 8. Bipolar disease. 9. Depression. 10. History of pancreatitis. 11. Hypothyroidism. The 12 status post cholecystectomy - Social History Smoking Status: Never smoked Constitutional: Initial Vital Signs Temperature (C) 99.0 F 11/08/16 17:47 Heart Rate 106 H 11/08/16 17:47 Respiratory Rate 18 11/08/16 17:47 Blood Pressure 128/87 H 11/08/16 17:47 O2 Sat (%) 96 11/08/16 17:47 O2 Delivery Mode Room Air Allergies/Adverse Reactions: ondansetron HCl [From Zofran (as hydrochloride)] Allergy (Severe, Verified 11/08 17:46) Other-Enter Comments amoxicillin trihydrate [From Augmentin] Allergy (Verified 11/08/16 17:46) ketorolac tromethamine [From Toradol] Allergy (Verified 11/08/16 17:46) potassium clavulanate [From Augmentin] Allergy (Verified 11/08/16 17:46) tramadol Allergy (Verified 11/08/16 17:46) vancomycin Allergy (Verified 11/08/16 17:46) Home Medications: Medication Instructions Recorded ALPRAZolam [Xanax 0.25 MG (*)] 0.25 mg PO TID PRN 08/13/16 Atorvastatin Calcium [Lipitor 40 40 mg PO DAILY 08/13/16 mg (*)] Ergocalciferol [Vitamin D2 (*)] 50,000 unit PO TU 08/13/16 Gabapentin [Neurontin 300 MG (*)] 600 mg PO TID 08/13/16 Levothyroxine [Synthroid 50 mcg 50 mcg PO DAILY06 08/13/16 (*)] Sertraline HCl [Zoloft 50mg (*)] 50 mg PO DAILY 08/13/16 Topiramate [Topamax 100MG (*)] 100 mg PO HS 08/13/16 tiZANidine HCL [Zanaflex 2MG (*)] 2 mg PO BID 08/13/16 risperiDONE [Risperdal] 2 mg PO HS 08/20/16 Acetaminophen [Tylenol 325mg (*)] 650 mg PO Q4HRS PRN #0 tab 08/22/16 oxyCODONE/APAP 5/325 [Percocet 1 - 2 tab PO Q6-8PRN PRN #20 tab 09/30/16 5/325 (*)] Methenamine Delisa [Hiprex 1 gm (*)] 1 gm PO DAILY 10/29/16 Promethazine HCl [Phenergan 25mg 25 mg PO TID PRN 10/29/16 (*)] Polyethylene Glycol 3350 [Miralax 17 gm PO DAILY #0 pkt 11/02/16 17 gm (*)] Promethazine HCl [Phenergan 6.25 - 12.5 mg IVP Q6HRS PRN #0 11/02/16 Injection] vial Medical Decision Making - Data Points Laboratory Results: Laboratory Results 11/08/16 19:50 11/08/16 18:25 11/08/16 11/08/16 11/08/16 22:30 19:50 18:25 WBC 7.03 10^3/uL (3.80-9.50) RBC 4.36 10^6/uL (4.18-5.33) Hgb 13.3 g/dL (12.6-16.3) Hct 39.2 % (38.0-47.0) MCV 89.9 fL (81.5-99.8) MCH 30.5 pg (27.9-34.1) MCHC 33.9 g/dL (32.4-36.7) RDW 13.8 % (11.5-15.2) Plt Count 305 10^3/uL (150-400) MPV 9.0 fL (8.7-11.7) Neut % (Auto) 72.3 % (39.3-74.2) Lymph % (Auto) 17.2 % (15.0-45.0) [place] % (Auto) 6.0 % (4.5-13.0) Eos % (Auto) 3.8 % (0.6-7.6) Baso % (Auto) 0.4 % (0.3-1.7) Nucleat RBC Rel Count 0.0 % (0.0-0.2) Absolute Neuts (auto) 5.08 10^3/uL (1.70-6.50) Absolute Lymphs (auto) 1.21 10^3/uL (1.00-3.00) Absolute Monos (auto) 0.42 10^3/uL (0.30-0.80) Absolute Eos (auto) 0.27 10^3/uL (0.03-0.40) Absolute Basos (auto) 0.03 10^3/uL (0.02-0.10) Absolute Nucleated RBC 0.00 10^3/uL (0-0.01) Immature Gran % 0.3 % (0.0-1.1) Immature Gran # 0.02 10^3/uL (0.00-0.10) PT 13.8 SEC (12.0-15.0) INR 1.07 (0.83-1.16) APTT 28.4 SEC (23.0-38.0) D-Dimer 0.76 H ug/mLFEU (0.00-0.50) Sodium 142 mEq/L (134-144) Potassium 3.9 mEq/L (3.5-5.2) Chloride 107 mEq/L (97-110) Carbon Dioxide 19 L mEq/l (22-31) Anion Gap 16 mEq/L (8-16) BUN 18 mg/dL (7-23) Creatinine 0.8 mg/dL (0.6-1.0) Estimated GFR > 60 Glucose 114 H mg/dL (70-100) Calcium 9.9 mg/dL (8.5-10.4) Total Bilirubin 0.8 mg/dL (0.1-1.4) Conjugated Bilirubin 0.4 mg/dL (0.0-0.5) Unconjugated Bilirubin 0.4 mg/dL (0.0-1.1) AST 28 IU/L (14-46) ALT 63 H IU/L (9-52) Alkaline Phosphatase 104 IU/L (38-126) Troponin I < 0.012 ng/mL < 0.012 ng/mL (0-0.034) (0-0.034) Total Protein 7.9 g/dL (6.3-8.2) Albumin 4.3 g/dL (3.5-5.0) Lipase 75.0 IU/L (23-300) Medications Given: Discontinued Medications Sodium Chloride (Ns) 500 mls @ 0 mls/hr IV ONCE ONE PRN Reason: As Directed Stop: 11/08/16 18:00 Last Admin: 11/08/16 19:05 Dose: Not Given Morphine Sulfate (Morphine) 4 mg IVP EDNOW ONE Stop: 11/08/16 21:12 Last Admin: 11/08/16 21:19 Dose: 4 mg Oxycodone/Acetaminophen (Percocet 5/325) 1 tab PO EDNOW ONE Stop: 11/09/16 00:01 Last Admin: 11/09/16 00:00 Dose: 1 tab Promethazine HCl (Phenergan) 12.5 mg IVP ONCE ONE Stop: 11/08/16 18:00 Last Admin: 11/08/16 19:05 Dose: Not Given Promethazine HCl (Phenergan) 25 mg IM EDNOW ONE Stop: 11/08/16 18:58 Last Admin: 11/08/16 19:05 Dose: 25 mg Departure - Departure Disposition: Home, Routine, Self-Care Clinical Impression: Chest pain Qualifiers: Chest pain type: unspecified Qualifier Code: (R07.9) Chest pain, unspecified Condition: Good Instructions: Chest Pain (ED) Additional Instructions: Contact primary care physician and Cardiology in the morning for follow-up in 1- 2 days. Return to ER for any return of chest pain Referrals: LOIS JOHNSON [Primary Care Provider] - As per Instructions Aliyah Alcaraz MD [Medical Doctor] - As per Instructions
[2016-11-08 18:51] LABS: ANION GAP 16 mEq/L (8-16); CARBON DIOXIDE 19 mEq/l (22-31); CHLORIDE 107 mEq/L (97-110); CREATININE 0.8 mg/dL (0.6-1.0); GLUCOSE 114 mg/dL (70-100); POTASSIUM 3.9 mEq/L (3.5-5.2); SODIUM 142 mEq/L (134-144)
[2016-11-08 18:52] LABS: ALANINE AMINOTRANSFERASE 63 IU/L (9-52); ALBUMIN 4.3 g/dL (3.5-5.0); ALKALINE PHOSPHATASE 104 IU/L (38-126); ASPARTATE AMINOTRANSFERASE 28 IU/L (14-46); BILIRUBIN,TOTAL 0.8 mg/dL (0.1-1.4); BILIRUBIN-CONJUGATED 0.4 mg/dL (0.0-0.5); BILIRUBIN-UNCONJUGATED 0.4 mg/dL (0.0-1.1); CALCIUM 9.9 mg/dL (8.5-10.4); GLOMERULAR FILTRATION RATE > 60; TOTAL PROTEIN 7.9 g/dL (6.3-8.2)
[2016-11-08] MEDS ORDERED: PROMETHAZINE HCL 25 MG/ML INJ IM ONE (18:57)
--- NOTE | 2016-11-08 18:57 | DX ---
Chest, One View Portable at 1846 hours History: Chest Pain . Comparison: November 04, 2016 Findings: Cardiac silhouette is normal in size. Ventricular peritoneal shunt along the right anterio r chest wall. No pneumonia, congestive heart failure, pleural effusion, or pneumothorax. Impression: 1. No acute pulmonary disease. 2. Consider chest two views when the patient's medical condition permits.
[2016-11-08 19:04] LABS: TROPONIN I < 0.012 ng/mL (0-0.034)
[2016-11-08 20:05] LABS: % IMMATURE GRANULYOCYTES 0.3 % (0.0-1.1); ABSOLUTE IMMATURE GRANULOCYTES 0.02 10^3/uL (0.00-0.10); ADD DIFF? NO; ADD MORPH? NO; ADD SCAN? NO; ATYPICAL LYMPHOCYTE FLAG 30 (0-99); FRAGMENT RBC FLAG 0 (0-99); HEMATOCRIT 39.2 % (38.0-47.0); HEMOGLOBIN 13.3 g/dL (12.6-16.3); LEFT SHIFT FLG 0 (0-99); LIPEMIA HEMOLYSIS FLAG 90 (0-99); MEAN CELL HEMOGLOBIN 30.5 pg (27.9-34.1); MEAN CELL HEMOGLOBIN CONCENTR. 33.9 g/dL (32.4-36.7); MEAN CELL VOLUME 89.9 fL (81.5-99.8); PLATELET CLUMPS FLAG 0 (0-99); PLATELET COUNT 305 10^3/uL (150-400); RED BLOOD CELL COUNT 4.36 10^6/uL (4.18-5.33); RED CELL DISTRIBUTION WIDTH 13.8 % (11.5-15.2)
[2016-11-08] MEDS ORDERED: IOPAMIDOL (ISOVUE 370) 100 ML BTL IV ONE (20:15)
[2016-11-08 20:16] LABS: INR 1.07 (0.83-1.16); PROTIME(PATIENT) 13.8 SEC (12.0-15.0)
[2016-11-08 20:17] LABS: APTT 28.4 SEC (23.0-38.0)
[2016-11-08] MEDS ORDERED: ONDANSETRON 4 MG/2 ML VIAL ONE (21:56)
[2016-11-08] MEDS ORDERED: PROMETHAZINE HCL 25 MG/ML INJ ONE (21:59)
--- NOTE | 2016-11-08 23:10 | CT ---
CT Angiogram of the Chest Clinical Indications: Chest pain. Technique: 1.25 mm thin axial images are performed from lung apex through base during intravenous contrast injection of 85 mL of Isovue-370. Coronal and parasagittal reformatted images are reviewed o n PACS workstation. Dose reduction techniques were utilized. Comparison: None. Findings: CT Angiogram of the Chest: There is no evidence for acute or chronic pulmonary embolic disease. Central pulmonary vasculature de monstrates normal contrast enhancement. No masses. CT Scan Chest: Lungs are clear. Heart and mediastinum are normal. There is no evidence for nodule or consolidation. No effusion. Visualized upper abdomen is normal. No adenopathy. There is an incidental azygous lobe. Patient is postcholecystectomy. Visualized upper abdomen is otherwise normal. Impression: 1. Normal CT scan of the chest 2. No evidence for pulmonary embolic disease. Findings and recommendations discussed with Westley Stearns at 2307 hour, 11/08/2016. Final report concurs with initial preliminary interpretation.
--- NOTE | 2016-11-08 23:13 | CPEKG ---
Heart Rate: 86 RR Interval: 698 P-R Interval: 140 QRSD Interval: 94 QT Interval: 384 QTC Interval: 460 P [place]: 56 QRS [place]: 41 T Wave [place]: 49 EKG Severity - NORMAL ECG - EKG Impression: SINUS RHYTHM Electronically Signed By: Henrry Shafer 10-Nov-2016 08:41:52
[2016-11-09] MEDS ORDERED: OXYCODONE/APAP 5/325 TAB ONE
[2016-11-09] MEDS ORDERED: OXYCODONE/APAP 5/325 TAB PO ONE
[2016-11-09 01:31] VITALS: BP 128/70; PULSE 89; TEMP 97.9; O2SAT 96
== END 2016-11-09 02:00 | disposition home or self-care (01) ==
LOC: EDUNIT#
DX: R07.9 Chest pain, unspecified (principal); I25.10 Atherosclerotic heart disease of native coronary artery without angina pectoris; I25.2 Old myocardial infarction
CPT/HCPCS: 71010; 96372; 96374; 99285; J2405; J2550; Q9967

== ENCOUNTER 2016-11-12 19:06 | Emergency (ER) | payer OTHER, MEDICAID ==
[2016-11-12] MEDS ORDERED: PROMETHAZINE HCL 25 MG SUPPR PR ONE (19:13)
[2016-11-12] MEDS ORDERED: HYDROmorphONE/DILAUDID 1 MG/ML SYR IM ONE (19:14)
[2016-11-12 19:15] VITALS: TEMP 98.4; O2SAT 94
[2016-11-12] MEDS ORDERED: IBUPROFEN 200 MG TAB PO ONE (19:15)
--- NOTE | 2016-11-12 19:18 | EDPHY ---
H & P Stated Complaint: Migraine Time Seen by Provider: 11/12/16 19:10 HPI/ROS: CHIEF COMPLAINT: Migraine HISTORY OF PRESENT ILLNESS: Patient is a 46-year-old female well known to our department who comes by EMS from her senior living complaining of a migraine. She gets these frequently and states that this is typical. She was seen here several days ago and had extensive cardiac workup that was negative including serial troponins and a CT angio of her chest. She is a very difficult IV stick. Labs were within normal limits at that time and she requests that we do not redraw them. She does have a history of Arnold-Chiari malformation and has a BILLING ADJUDICATOR shunt. REVIEW OF SYSTEMS: Constitutional: denies: chills, fever, recent illness, recent injury EENTM: denies: blurred vision, double vision, nose congestion Respiratory: denies: cough, shortness of breath Cardiac: denies: chest pain, irregular heart rate, lightheadedness, palpitations Gastrointestinal/Abdominal: denies: abdominal pain, diarrhea, nausea, vomiting, blood streaked stools Genitourinary: denies: dysuria, frequency, hematuria, pain Musculoskeletal: denies: joint pain, muscle pain Skin: denies: lesions, rash, jaundice, bruising Neurological: See HPI no weakness, paresthesias or numbness. Hematologic/Lymphatic: denies: blood clots, easy bleeding, easy bruising Immunologic/allergic: denies: HIV/AIDS, transplant EXAM: GENERAL: Well-appearing, well-nourished and in no acute distress. HEAD: Atraumatic, normocephalic. EYES: Pupils equal round and reactive to light, extraocular movements intact, sclera anicteric, conjunctiva are normal. ENT: TMs normal, nares patent, oropharynx clear without exudates. Moist mucous membranes. NECK: Normal range of motion, supple without lymphadenopathy or JVD. LUNGS: Breath sounds clear to auscultation bilaterally and equal. No wheezes rales or rhonchi. HEART: Regular rate and rhythm without murmurs, rubs or gallops. ABDOMEN: Soft, nontender, normoactive bowel sounds. No guarding, no rebound. No masses appreciated. BACK: No CVA tenderness, no spinal tenderness, step-offs or deformities EXTREMITIES: Normal range of motion, no pitting or edema. No clubbing or cyanosis. NEUROLOGICAL: Cranial nerves II through XII grossly intact. Normal speech, normal gait. 5/5 strength, normal movement in all extremities, normal sensation PSYCH: Normal mood, normal affect. SKIN: Warm, dry, normal turgor, no visible rashes or lesions. Source: Patient Exam Limitations: No limitations - Personal History Current Tetanus/Diphtheria Vaccine: Yes Current Tetanus Diphtheria and Acellular Pertussis (TDAP): Yes - Medical/Surgical History Hx Asthma: No Hx Chronic Respiratory Disease: No Hx Diabetes: No Hx Cardiac Disease: No Hx Renal Disease: No Hx Cirrhosis: No Hx Alcoholism: No Hx HIV/AIDS: No Hx Splenectomy or Spleen Trauma: No Other PMH: 1. History of Clostridium difficile. 2. History of CVA with resultant right-sided weakness. 3. Arnold-Chiari status post BILLING ADJUDICATOR shunt. 4. 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 5. History of PE not on anticoagulation. 6. Spina bifida with neurogenic bladder and urostomy. 7. Functional quadriplegia. 8. Bipolar disease. 9. Depression. 10. History of pancreatitis. 11. Hypothyroidism. The 12 status post cholecystectomy - Family History Significant Family History: No pertinent family hx - Social History Smoking Status: Never smoked Alcohol Use: Sober Drug Use: None Constitutional: Initial Vital Signs Temperature (C) 36.9 C 11/12/16 19:12 Heart Rate 106 H 11/12/16 19:12 Respiratory Rate 18 11/12/16 19:12 Blood Pressure 110/91 H 11/12/16 19:12 O2 Sat (%) 94 11/12/16 19:12 O2 Delivery Mode Room Air Allergies/Adverse Reactions: ondansetron HCl [From Zofran (as hydrochloride)] Allergy (Severe, Verified 11/12 19:12) Other-Enter Comments amoxicillin trihydrate [From Augmentin] Allergy (Verified 11/12/16 19:12) ketorolac tromethamine [From Toradol] Allergy (Verified 11/12/16 19:12) potassium clavulanate [From Augmentin] Allergy (Verified 11/12/16 19:12) tramadol Allergy (Verified 11/12/16 19:12) vancomycin Allergy (Verified 11/12/16 19:12) Home Medications: Medication Instructions Recorded ALPRAZolam [Xanax 0.25 MG (*)] 0.25 mg PO TID PRN 08/13/16 Atorvastatin Calcium [Lipitor 40 40 mg PO DAILY 08/13/16 mg (*)] Ergocalciferol [Vitamin D2 (*)] 50,000 unit PO TU 08/13/16 Gabapentin [Neurontin 300 MG (*)] 600 mg PO TID 08/13/16 Levothyroxine [Synthroid 50 mcg 50 mcg PO DAILY06 08/13/16 (*)] Sertraline HCl [Zoloft 50mg (*)] 50 mg PO DAILY 08/13/16 Topiramate [Topamax 100MG (*)] 100 mg PO HS 08/13/16 tiZANidine HCL [Zanaflex 2MG (*)] 2 mg PO BID 08/13/16 risperiDONE [Risperdal] 2 mg PO HS 08/20/16 Acetaminophen [Tylenol 325mg (*)] 650 mg PO Q4HRS PRN #0 tab 08/22/16 oxyCODONE/APAP 5/325 [Percocet 1 - 2 tab PO Q6-8PRN PRN #20 tab 09/30/16 5/325 (*)] Methenamine Delisa [Hiprex 1 gm (*)] 1 gm PO DAILY 10/29/16 Promethazine HCl [Phenergan 25mg 25 mg PO TID PRN 10/29/16 (*)] Polyethylene Glycol 3350 [Miralax 17 gm PO DAILY #0 pkt 11/02/16 17 gm (*)] Promethazine HCl [Phenergan 6.25 - 12.5 mg IVP Q6HRS PRN #0 11/02/16 Injection] vial Medical Decision Making - Diagnostics Imaging: Results: CT scan of the head was obtained. The results of the study are unchanged from previous. The study was read by Dr. Jose Raul Mckeon. I viewed the images myself on the PACS system. ED Course/Re-evaluation: 8:20 p.m. the patient's head CT is negative. She is feeling better. We will discharge her home. She agrees with this plan. She will follow up with her primary physician tomorrow. Differential Diagnosis: Partial list of the Differential diagnosis considered include but were not limited to; migraine, shunt malfunction, hemorrhage and although unlikely based on the history and physical exam, I also considered infection, trauma, thrombus. I discussed these differential diagnoses and the plan with the patient as well as the usual and expected course. The patient understands that the diagnosis is provisional and that in medicine we are not always correct and that further workup is often warranted. Usual and customary warnings were given. All of the patient's questions were answered. The patient was instructed to return to the emergency department should the symptoms at all worsen or return, otherwise to followup with the physician as we discussed. - Data Points Medications Given: Discontinued Medications Hydromorphone HCl (Dilaudid) 2 mg IM EDNOW ONE Stop: 11/12/16 19:15 Last Admin: 11/12/16 19:30 Dose: 2 mg Ibuprofen (Motrin) 800 mg PO EDNOW ONE Stop: 11/12/16 19:16 Last Admin: 11/12/16 19:30 Dose: 800 mg Promethazine HCl (Phenergan Rectal) 25 mg HI EDNOW ONE Stop: 11/12/16 19:14 Last Admin: 11/12/16 19:30 Dose: 25 mg Departure - Departure Disposition: Home, Routine, Self-Care Clinical Impression: Migraine Qualifiers: Migraine type: unspecified Status migrainosus presence: without status migrainosus Intractability: not intractable Qualified Code(s): G43.909 - Migraine, unspecified, not intractable, without status migrainosus Condition: Fair Instructions: Migraine Headache (ED) Referrals: Hany Aguilar [Other] - As per Instructions
[2016-11-12 21:13] VITALS: BP 119/75; PULSE 94; RESP 16
== END 2016-11-12 21:13 | disposition home or self-care (01) ==
LOC: EDUNIT#
DX: G43.909 Migraine, unspecified, not intractable, without status migrainosus (principal); Z86.73 Personal history of transient ischemic attack (TIA), and cerebral infarction without residual deficits
CPT/HCPCS: 70450; 96372; 99284; J1170

== ENCOUNTER 2016-11-17 15:32 | Inpatient (IN) | payer OTHER, MEDICAID ==
--- NOTE | 2016-11-17 15:36 | EDPHY ---
H & P Time Seen by Provider: 11/17/16 15:35 HPI/ROS: CHIEF COMPLAINT: Bilateral lower back pain. HISTORY OF PRESENT ILLNESS: This is a 46-year-old female with an extensive medical history presenting via EMS for urinary tract infection. She is complaining of bilateral lower back pain, right worse than left, than began on Tuesday night (3 days ago). She reports that the pain was initially in the right but migrated to the left a little later. The pain was initially intermittent but is now constant. Associated with foul-smelling urine and a low-grade fever. She has vomited twice today. She has no history of kidney stones. She has a history of similar symptoms related to kidney infections. REVIEW OF SYSTEMS: A complete 10-point review of systems was performed and is negative except for those items mentioned in the HPI. Past Medical/Surgical History: CVA, Arnold-Chiari status post CATEGORY SPECIALIST shunt, PE, spina bifida, bipolar disorder, depression, c. Diff, hypothyroidism, pancreatitis, right BKA, cholecystectomy, UTIs. Social History: Nonsmoker. Smoking Status: Never smoked Physical Exam: General Appearance: Alert, no distress, does not appear in pain. Eyes: Pupils equal and round, no conjunctival pallor or injection ENT, Mouth: Mucous membranes moist Neck: Normal inspection Respiratory: Lungs are clear to auscultation Cardiovascular: Regular rate and rhythm Gastrointestinal: Abdomen is soft. RLQ tenderness just below stoma. Urostomy bag in place. Back: No CVA tenderness. Neurological: A&O, nonfocal, normal gait Skin: Warm and dry, no rash Extremities: Nontender, no pedal edema Psychiatric: Mood and affect normal Constitutional: Initial Vital Signs Temperature (C) 37.1 C 11/17/16 15:38 Heart Rate 111 H 11/17/16 15:38 Respiratory Rate 18 11/17/16 15:38 Blood Pressure 103/79 11/17/16 15:38 O2 Sat (%) 95 11/17/16 15:38 O2 Delivery Mode Room Air Allergies/Adverse Reactions: ondansetron HCl [From Zofran (as hydrochloride)] Allergy (Severe, Verified 11/12 19:12) Other-Enter Comments amoxicillin trihydrate [From Augmentin] Allergy (Verified 11/12/16 19:12) ketorolac tromethamine [From Toradol] Allergy (Verified 11/12/16 19:12) potassium clavulanate [From Augmentin] Allergy (Verified 11/12/16 19:12) tramadol Allergy (Verified 11/12/16 19:12) vancomycin Allergy (Verified 11/12/16 19:12) Home Medications: Medication Instructions Recorded ALPRAZolam [Xanax 0.25 MG (*)] 0.25 mg PO TID PRN 08/13/16 Atorvastatin Calcium [Lipitor 40 40 mg PO HS 08/13/16 mg (*)] Ergocalciferol [Vitamin D2 (*)] 50,000 unit PO FR 08/13/16 Gabapentin [Neurontin 300 MG (*)] 900 mg PO TID 08/13/16 Levothyroxine [Synthroid 50 mcg 50 mcg PO DAILY06 08/13/16 (*)] Sertraline HCl [Zoloft 50mg (*)] 50 mg PO HS 08/13/16 Topiramate [Topamax 100MG (*)] 100 mg PO HS 08/13/16 tiZANidine HCL [Zanaflex 2MG (*)] 2 mg PO BID 08/13/16 risperiDONE [Risperdal] 2 mg PO HS 08/20/16 Methenamine Delisa [Hiprex 1 gm (*)] 0.5 gm PO BID 10/29/16 Promethazine HCl [Phenergan 25mg 25 mg PO DAILY PRN 10/29/16 (*)] Acetaminophen [Tylenol 325mg (*)] 650 mg PO Q6H PRN 11/17/16 Bisacodyl [Dulcolax] 10 mg RC DAILY PRN 11/17/16 Magnesium Hydroxide [Milk of 30 ml PO DAILY PRN 11/17/16 Magnesia] Magnesium Hydroxide/Al Hydrox 30 ml PO Q6H PRN 11/17/16 [Mylanta Liquid] Nitroglycerin [Nitrostat 0.4 mg 0.4 mg SL Q5M PRN 11/17/16 (*)] Polyethylene Glycol 3350 [Miralax 17 gm PO DAILY PRN 11/17/16 17 gm (*)] Sennosides 1 - 2 tab PO Q6H PRN 11/17/16 Simethicone [Mylicon 80 mg (OTC)] 80 mg PO Q6H PRN 11/17/16 oxyCODONE/APAP 5/325 [Percocet 1 - 2 tab PO Q6H PRN 11/17/16 5/325 (*)] Medical Decision Making ED Course/Re-evaluation: This patient presents with pyelonephritis, with foul-smelling urine, tachycardia and recent fever. Difficult IV access and ultimately a PICC line was placed. 1L IV saline administered for hydration, along with 6mg IV Morphine for pain and 12.5mg IV Phenergan for nausea/vomiting. A new urostomy bag was placed and a clean urine sample obtained. Patient's UA consistent with UTI. She does not meet SIRS criteria. Rocephin 1 g IV given. A urine culture was sent. The hospitalist service was consulted for admission. Differential Diagnosis: Differential diagnosis includes cholecystitis, influenza, cellulitis, pneumonia. - Data Points Laboratory Results: Laboratory Results 11/17/16 18:46 11/17/16 18:46 Microbiology Results: MICROBIOLOGY 11/17/16 18:46 Blood Blood Culture - Preliminary 11/17/16 19:18 Blood Blood Culture - Preliminary 11/17/16 20:09 Urine,Clean Catch Urine Culture - Preliminary Pseudomonas Aeruginosa [place] Types Medications Given: Discontinued Medications Sodium Chloride (Ns) 1,000 mls @ 0 mls/hr IV ONCE ONE PRN Reason: Wide Open Stop: 11/17/16 15:48 Last Admin: 11/17/16 18:50 Dose: 1,000 mls Sodium Chloride (Ns) 1,000 mls @ 0 mls/hr IV ONCE ONE PRN Reason: Wide Open Stop: 11/17/16 19:41 Last Admin: 11/17/16 20:24 Dose: 1,000 mls Ceftriaxone Sodium/Dextrose (Rocephin 1 Gm (Premix)) 50 mls @ 100 mls/hr IV EDNOW ONE PRN Reason: Protocol Stop: 11/17/16 20:52 Last Admin: 11/17/16 20:49 Dose: 50 mls Morphine Sulfate (Morphine) 6 mg IVP EDNOW ONE Stop: 11/17/16 15:48 Last Admin: 11/17/16 18:50 Dose: 6 mg Promethazine HCl (Phenergan) 12.5 mg IVP EDNOW ONE Stop: 11/17/16 15:49 Last Admin: 11/17/16 18:50 Dose: 12.5 mg Departure - Departure Disposition: [facility] Acute Clinical Impression: Pyelonephritis Condition: Fair Report Scribed for: Krissy Bauer Report Scribed by: Julio Valenzuela Date of Report: 11/17/16 Time of Report: 15:39 Physician Review and Approval Statement: 11/17/16 15:39 Portions of this note were transcribed by a medical office assistant instructor. I personally performed a history, physical exam, medical decision making, and confirmed accuracy of information the transcribed note.
[2016-11-17] MEDS ORDERED: NS 1,000 ML IV ONE ×2 (15:47→19:40)
[2016-11-17] MEDS ORDERED: PROMETHAZINE HCL 25 MG/ML INJ IVP ONE (15:48)
[2016-11-17] MEDS ORDERED: ALTEPLASE 2 MG VIAL IVP PRN (16:56)
[2016-11-17] MEDS ORDERED: PROMETHAZINE HCL 25 MG/ML INJ ONE (18:33)
[2016-11-17 19:00] LABS: % IMMATURE GRANULYOCYTES 0.3 % (0.0-1.1); ABSOLUTE IMMATURE GRANULOCYTES 0.02 10^3/uL (0.00-0.10); ADD DIFF? NO; ADD MORPH? NO; ADD SCAN? NO; ATYPICAL LYMPHOCYTE FLAG 10 (0-99); FRAGMENT RBC FLAG 0 (0-99); HEMATOCRIT 37.1 % (38.0-47.0); HEMOGLOBIN 12.6 g/dL (12.6-16.3); LEFT SHIFT FLG 0 (0-99); LIPEMIA HEMOLYSIS FLAG 90 (0-99); MEAN CELL HEMOGLOBIN 30.6 pg (27.9-34.1); MEAN PLATELET VOLUME 8.7 fL (8.7-11.7); PLATELET CLUMPS FLAG 10 (0-99); PLATELET COUNT 362 10^3/uL (150-400); RED BLOOD CELL COUNT 4.12 10^6/uL (4.18-5.33); RED CELL DISTRIBUTION WIDTH 13.2 % (11.5-15.2)
[2016-11-17 19:14] LABS: INR 1.11 (0.83-1.16); PROTIME(PATIENT) 14.2 SEC (12.0-15.0)
[2016-11-17 19:15] LABS: APTT 29.8 SEC (23.0-38.0)
[2016-11-17 19:19] LABS: ANION GAP 14 mEq/L (8-16); BILIRUBIN,TOTAL 0.6 mg/dL (0.1-1.4); CALCIUM 9.4 mg/dL (8.5-10.4); CARBON DIOXIDE 21 mEq/l (22-31); CHLORIDE 107 mEq/L (97-110); CREATININE 0.9 mg/dL (0.6-1.0); GLOMERULAR FILTRATION RATE > 60; GLUCOSE 97 mg/dL (70-100); POTASSIUM 3.8 mEq/L (3.5-5.2); SODIUM 142 mEq/L (134-144)
[2016-11-17 20:27] LABS: COLOR YELLOW; LEUKOCYTE ESTERASE,URINE 3+ (NEGATIVE); NITRITE,URINE NEGATIVE (NEGATIVE)
[2016-11-17 20:33] LABS: BACTERIA TRACE /hpf (NONE SEEN); MUCUS TRACE /lpf (NONE-1+); RBC,URINE 50-182 /hpf (0-3); WBC,URINE 15-25 /hpf (0-3)
[2016-11-17] MEDS ORDERED: ONDANSETRON 4 MG/2 ML VIAL IVP PRN (21:08)
[2016-11-17] MEDS ORDERED: ACETAMINOPHEN 325 MG TAB PO PRN (21:08)
[2016-11-17] MEDS ORDERED: ONDANSETRON DISINTEGRATING 4 MG TAB PO PRN (21:08)
[2016-11-17] MEDS ORDERED: POLYETHYLENE GLYCOL 3350 17 GM PKT PO PRN (21:40)
[2016-11-17] MEDS ORDERED: MAGNESIUM HYDROXIDE 30 ML UDCUP PO PRN (21:40)
[2016-11-17] MEDS ORDERED: NITROGLYCERIN 0.4 MG BTL SL PRN (21:40)
[2016-11-17] MEDS ORDERED: SIMETHICONE 80 MG TAB CHEW PO PRN (21:40)
[2016-11-17] MEDS ORDERED: BISACODYL 10 MG SUPP PR PRN (21:40)
[2016-11-17] MEDS ORDERED: MAG HYDROX/AL HYDROX/SIMETH 30 ML UDCUP PO PRN (22:00)
[2016-11-17] MEDS: PROMETHAZINE HCL 25 MG TAB PO PRN (22:03)
[2016-11-17] MEDS: GABAPENTIN 300 MG CAP PO SCH (22:03)
--- NOTE | 2016-11-17 22:19 | GHP ---
DATE OF ADMISSION: 11/17/2016 CHIEF COMPLAINT: 1. Fever. 2. Concern for pyelonephritis. HISTORY OF PRESENT ILLNESS: The patient is a 46-year-old female transferred from [facility] with a history of an Arnold-Chiari malformation, spina bifida, and chronic ileal conduit/urostomy with recurrent UTIs. She reports symptoms since Tuesday, including right flank pain, chills, sweats, lower cramping abdominal pain, and a temperature of a 100.4. She has had nausea and nonbloody emesis x2 today. She had loose stools today. Reports decreased appetite and p.o. intake, as well as energy. Of note, she was recently hospitalized to 10/29/2016 through 11/02/2016 with acute abdominal pain and chronic urostomy colonization. She recently had a C difficile at [facility] in July. The patient was not treated for a urinary tract infection during this most recent hospitalization. REVIEW OF SYSTEMS: I completed a 10-point review of systems. Negative, except as noted in the HPI. PAST MEDICAL HISTORY: 1. Chronic ileal conduit/urostomy. 2. Stroke in 2010 and 2012 with residual right-sided weakness. 3. Arnold-Chiari malformation with a LENDING ACTIVITIES SUPERVISOR shunt. 4. Spina bifida. 5. Neurogenic bladder. 6. Bipolar disease. 7. History of pulmonary embolism. 8. Hypothyroidism. 9. Pancreatitis. 10. Quadriplegia. 11. Depression. 12. C difficile infection in July 2016. PAST SURGICAL HISTORY: 1. Cholecystectomy. 2. Ileal conduit/urostomy. 3. LENDING ACTIVITIES SUPERVISOR shunt. 4. Right BKA. FAMILY HISTORY: Mother with non-Hodgkin's. SOCIAL HISTORY: Moved from [place], [place] in June 2016. Lives at [facility]. . Her lives in [place]. ALLERGIES: 1. Zofran. 2. Amoxicillin. 3. Toradol. 4. Potassium clavulanate. 5. Tramadol. 6. Vancomycin. HOME MEDICATIONS: 1. Simethicone p.r.n. 2. Senna. 3. MiraLAX p.r.n. 4. Tylenol. 5. Percocet 5/325 mg 1-2 tabs p.o. q.8h p.r.n. 6. Promethazine daily p.r.n. 7. Tizanidine 2 mg b.i.d. 8. Xanax 0.25 mg t.i.d. p.r.n. 9. g p.o. b.i.d. 10. Ergocalciferol 50,000 units per week. 11. Topamax 100 mg q.h.s. 12. Risperdal 2 mg p.o. q.h.s. 13. Sertraline 50 mg q.h.s. 14. Levothyroxine 50 mcg. 15. Gabapentin 900 mg t.i.d. 16. Lipitor 40 mg daily. PHYSICAL EXAM: VITAL SIGNS: Temperature 36.8 (reported 100.4 at [facility]) , blood pressure 123/78, heart rate 111 (now 78 after fluids), respirations 16, 95% on room air. GENERAL: In no acute distress, lying in bed. HEENT: PERRLA , EOMI. Poor dentition. CV: Regular rate and rhythm. No murmurs, gallops, or rubs. LUNGS: Clear to auscultation anteriorly. GI: Soft, nontender, nondistended. Positive bowel sounds. : Urostomy with pink tissue, right suprapubic and right flank tenderness with palpation. MUSCULOSKELETAL: Right BKA. SKIN: Warm, dry, no rash or ulceration. NEUROLOGIC: Cranial nerves II through XII. PSYCHIATRIC: Alert and oriented x3. LABS: Sodium 142, potassium 3.8, chloride 107, carbon dioxide 21, anion gap 14 , BUN 21, creatinine 0.9, glucose 97, calcium 9.4. Urinalysis: +3 leukocyte esterase, WBC 15-25, trace bacteria. WBC 7.1, hemoglobin 12 hematocrit 37, platelets are 362. ASSESSMENT AND PLAN: 1. Right flank pain: Concern for pyelonephritis given positive urinalysis, low -grade fever, and tachycardia. Initially tachycardic to the 110s. She received a dose of IV ceftriaxone in the ER and will continue. Culture pending. 2. Pyelonephritis: Symptomatic with nausea/vomiting. Positive urinalysis. I personally reviewed previous micro studies and she has a history of Enterococcus and Klebsiella. Cultures pending. 3. Tachycardia: Resolved with IV fluids. 4. Chronic pain: Will continue home medications. 5. Depression: Continue home medications. 6. Hypothyroidism: Continue levothyroxine. 7. Acute abdominal pain: Suspect secondary to pyelonephritis, but given loose stools, will check a Clostridium difficile. 8. Nausea: Phenergan p.r.n. Has an allergy to Zofran. 9. Diet: Regular. 10. Deep venous thrombosis prophylaxis: Lovenox. DISPOSITION: Patient warrants inpatient admission given concern for pyelonephritis. She was tachycardic. Warranting IV fluid and antibiotics. Cultures are pending. /[id number]/MODL MTDD
[2016-11-18] MEDS: oxyCODONE IR 5 MG TAB PO PRN ×4 (00:48→13:36)
[2016-11-18] MEDS: PROMETHAZINE HCL 25 MG/ML INJ IVP PRN ×4 (00:49→20:40)
[2016-11-18] MEDS: ALPRAZolam 0.25 MG TAB PO PRN ×3 (02:01→18:13)
[2016-11-18] MEDS: LEVOTHYROXINE 50 MCG TAB PO SCH (05:08)
[2016-11-18 05:40] LABS: ANION GAP 8 mEq/L (8-16); CALCIUM 8.5 mg/dL (8.5-10.4); CARBON DIOXIDE 20 mEq/l (22-31); CHLORIDE 113 mEq/L (97-110); CREATININE 0.8 mg/dL (0.6-1.0); GLOMERULAR FILTRATION RATE > 60; GLUCOSE 85 mg/dL (70-100); POTASSIUM 4.3 mEq/L (3.5-5.2); SODIUM 141 mEq/L (134-144)
[2016-11-18] MEDS: GABAPENTIN 300 MG CAP PO SCH ×3 (08:19→20:35)
[2016-11-18] MEDS: ENOXAPARIN 40 MG/0.4 ML SYR SC SCH (08:20)
[2016-11-18] MEDS: NS 1,000 ML IV SCH ×2 (08:26→18:12)
[2016-11-18] MEDS: tiZANidine HCL 2 MG TAB PO SCH ×2 (09:34→20:36)
[2016-11-18] MEDS: METHENAMINE HIPP 1 GM TAB PO SCH ×2 (09:35→20:35)
[2016-11-18] MEDS: PROMETHAZINE HCL 25 MG TAB PO PRN (12:11)
--- NOTE | 2016-11-18 14:13 | HOSPPROG ---
Hospitalist Progress Note Assessment/Plan: 46 yo F w complex medical history here w low grade temps and R flank pain ? UTI: UA +, but given ileal conduit will always have pyuria. past urine cultures have shown enterococcus and klebsiella on ceftriaxone and improving await ucx fever: check influenza no diarrhea h/o recent cdiff: start preventative po vanc spina bifida: no active issues proph: [facility] dispo: suspect can be dc'd when ucx finished Subjective: no diarrhea Objective: Vital Signs Temp Pulse Resp BP Pulse Ox 36.8 C 86 18 100/87 H 93 11/18/16 07:52 11/18/16 10:40 11/18/16 07:52 11/18/16 10:40 11/18/16 10:40 Laboratory Results 11/18/16 05:16 11/17/16 11/18/16 11/19/16 05:59 05:59 05:59 Intake Total 2950 300 Output Total 1125 600 Balance 1825 -300 PT 14.2 SEC (12.0-15.0) 11/17/16 18:46 INR 1.11 (0.83-1.16) 11/17/16 18:46 - Physical Exam Constitutional: no apparent distress, appears nourished Eyes: PERRL, anicteric sclera Ears, Nose, Mouth, Throat: moist mucous membranes, hearing normal Cardiovascular: regular rate and rhythym, no murmur, rub, or gallop Respiratory: no respiratory distress, no rales or rhonchi Gastrointestinal: normoactive bowel sounds, soft, non-tender abdomen Genitourinary: No mccall in urethra Skin: warm, normal color Musculoskeletal: other (R BKA) Neurologic: AAOx3 ICD10 Worksheet Patient Problems: Problems Problem Status Onset Urinary tract infection Acute Acute pyelonephritis Acute Chest pain Acute Chronic chest pain Acute Nausea Acute UTI (urinary tract infection) Acute Upper abdominal pain Acute
[2016-11-18] MEDS: OXYCODONE/APAP 5/325 TAB PO PRN (16:13)
[2016-11-18] MEDS: SENNOSIDES 1 TAB PO PRN (16:30)
[2016-11-18 20:57] VITALS: RESP 16
[2016-11-18] MEDS ORDERED: risperiDONE 2 MG TAB PO SCH (21:00)
[2016-11-18] MEDS ORDERED: SERTRALINE HCL 50 MG TAB PO SCH (21:00)
[2016-11-18] MEDS ORDERED: TOPIRAMATE 100 MG TAB PO SCH (21:00)
[2016-11-18] MEDS ORDERED: ATORVASTATIN CALCIUM 40 MG TAB PO SCH (21:00)
[2016-11-19] MEDS: SENNOSIDES 1 TAB PO PRN (01:08)
[2016-11-19] MEDS: OXYCODONE/APAP 5/325 TAB PO PRN (01:08)
[2016-11-19] MEDS: NS 1,000 ML IV SCH (05:54)
[2016-11-19] MEDS: PROMETHAZINE HCL 25 MG/ML INJ IVP PRN (05:54)
[2016-11-19] MEDS: oxyCODONE IR 5 MG TAB PO PRN (05:54)
[2016-11-19] MEDS: LEVOTHYROXINE 50 MCG TAB PO SCH (05:54)
[2016-11-19 07:57] VITALS: BP 93/69; PULSE 86; TEMP 97.8; O2SAT 99
[2016-11-19] MEDS: tiZANidine HCL 2 MG TAB PO SCH (08:15)
[2016-11-19] MEDS: METHENAMINE HIPP 1 GM TAB PO SCH (08:15)
[2016-11-19] MEDS: ENOXAPARIN 40 MG/0.4 ML SYR SC SCH (08:17)
[2016-11-19] MEDS: GABAPENTIN 300 MG CAP PO SCH ×2 (08:49→15:47)
[2016-11-19] MEDS ORDERED: ERGOCALCIFEROL 50,000 I.UNIT CAP PO SCH (09:00)
[2016-11-19] MEDS ORDERED: CEFEPIME HCL 2 GM in D5W 100 ML IV SCH (14:00)
--- NOTE | 2016-11-19 15:01 | PDIAF ---
- Diagnosis Diagnosis: possible pyelonephritis Code Status: Full Code - Medication Management Discharge Medications: Medications to Continue on Transfer ALPRAZolam [Xanax 0.25 MG (*)] 0.25 mg PO TID PRN 08/13/16 [Last Taken 10/28/16] Atorvastatin Calcium [Lipitor 40 mg (*)] 40 mg PO HS 08/13/16 [Last Taken ] Ergocalciferol [Vitamin D2 (*)] 50,000 unit PO FR 08/13/16 [Last Taken 11/12/16] Gabapentin [Neurontin 300 MG (*)] 900 mg PO TID 08/13/16 [Last Taken 11/17/16] Levothyroxine [Synthroid 50 mcg (*)] 50 mcg PO DAILY06 08/13/16 [Last Taken ] Sertraline HCl [Zoloft 50mg (*)] 50 mg PO HS 08/13/16 [Last Taken 11/16/16] Topiramate [Topamax 100MG (*)] 100 mg PO HS 08/13/16 [Last Taken 11/16/16] tiZANidine HCL [Zanaflex 2MG (*)] 2 mg PO BID 08/13/16 [Last Taken 11/17/16] risperiDONE [Risperdal] 2 mg PO HS 08/20/16 [Last Taken 11/16/16] Methenamine Delisa [Hiprex 1 gm (*)] 0.5 gm PO BID 10/29/16 [Last Taken 11/17/16] Promethazine HCl [Phenergan 25mg (*)] 25 mg PO DAILY PRN 10/29/16 [Last Taken Unknown] Acetaminophen [Tylenol 325mg (*)] 650 mg PO Q6H PRN 11/17/16 [Last Taken Unknown ] Bisacodyl [Dulcolax] 10 mg RC DAILY PRN 11/17/16 [Last Taken Unknown] Magnesium Hydroxide [Milk of Magnesia] 30 ml PO DAILY PRN 11/17/16 [Last Taken Unknown] Magnesium Hydroxide/Al Hydrox [Mylanta Liquid] 30 ml PO Q6H PRN 11/17/16 [Last Taken Unknown] Nitroglycerin [Nitrostat 0.4 mg (*)] 0.4 mg SL Q5M PRN 11/17/16 [Last Taken Unknown] Polyethylene Glycol 3350 [Miralax 17 gm (*)] 17 gm PO DAILY PRN 11/17/16 [Last Taken Unknown] Sennosides 1 - 2 tab PO Q6H PRN 11/17/16 [Last Taken Unknown] Simethicone [Mylicon] 80 mg PO Q6H PRN 11/17/16 [Last Taken Unknown] oxyCODONE/APAP 5/325 [Percocet 5/325 (*)] 1 - 2 tab PO Q6H PRN 11/17/16 [Last Taken Unknown] Cefepime HCl [Maxipime] 2 gm IV Q12 #0 vial 11/19/16 [Last Taken Unknown] Animal Cruelty Investigator Antibiotics: cefepime Skilled Nursing Antibiotic Stop Date: 11/25/16 Discharge Medications: Refer to the Discharge Home Medication list for PRN reason. - Follow Up Care Current Providers and Referrals: Isabella Harrison, PAC [Physician Billiard Table Assembler] - As per Instructions Patient,NotPresent [Unknown] - As per Instructions
--- NOTE | 2016-11-19 15:04 | HOSPPROG ---
Hospitalist Progress Note Assessment/Plan: 46 yo F w complex medical history here w low grade temps and R flank pain ? UTI: UA +, but given ileal conduit will always have pyuria. cefepime started for pseudomonas 7 day course fever: check influenza no diarrhea h/o recent cdiff: start preventative po vanc spina bifida: no active issues proph: [facility] dispo: dc to [facility] today > 30 minutes on dc Subjective: ucx cefepime sens (FQ resistant) pseudomonas. afebrile Objective: Vital Signs Temp Pulse Resp BP Pulse Ox 36.6 C 86 16 93/69 L 99 11/19/16 07:49 11/19/16 08:20 11/19/16 07:49 11/19/16 07:49 11/19/16 08:20 Laboratory Results 11/18/16 05:16 11/18/16 11/19/16 11/20/16 05:59 05:59 05:59 Intake Total 2950 2755 Output Total 1125 2450 375 Balance 1825 305 -375 PT 14.2 SEC (12.0-15.0) 11/17/16 18:46 INR 1.11 (0.83-1.16) 11/17/16 18:46 - Physical Exam Constitutional: no apparent distress, appears nourished Eyes: PERRL, anicteric sclera Ears, Nose, Mouth, Throat: moist mucous membranes, hearing normal Cardiovascular: regular rate and rhythym, no murmur, rub, or gallop Respiratory: no respiratory distress, no rales or rhonchi Gastrointestinal: normoactive bowel sounds, soft, non-tender abdomen Genitourinary: No mccall in urethra Skin: warm, normal color Musculoskeletal: No full muscle strength ICD10 Worksheet Patient Problems: Problems Problem Status Onset Pyelonephritis Acute Acute pyelonephritis Acute Chest pain Acute Chronic chest pain Acute Nausea Acute UTI (urinary tract infection) Acute Upper abdominal pain Acute
--- NOTE | 2016-11-19 15:24 | GDS ---
DISCHARGE DIAGNOSES: 1. Possible pyelonephritis. 2. History of Clostridium difficile. 3. Chronic ileal conduit/urostomy. 4. Stroke in 2010 and 2012 with right-sided weakness. 5. Arnold-Chiari malformation with a PLATER PRINTED [employer] BOARD PANELS shunt. 6. Spina bifida. Please see history and physical by Dr. Sadie Jacobs. HOSPITAL COURSE: The patient presented with right flank pain, chills, sweats. She was found to hav e pyuria, which is not surprising given her surgical urinary anatomy. She was afebrile while here. She was negative for influenza. She did not have further diarrhea. She did not have peripheral le ukocytosis. She had ongoing flank pain. She was started on Ceftriaxone for possible pyelonephritis . Urine grew out fluoroquinolone resistant pseudomonas. She is going to get 7 days of cefepime. W ill be discharged to [facility] today. /[id number]/MODL
== END 2016-11-19 17:24 | DRG 690 ==
LOC: EDUNIT# → F1N 21:36
PROVIDERS: ADMIT Internal Medicine; ATTEND Internal Medicine
PROC: 02HV33Z Insertion of Infusion Device into Superior Vena Cava, Percutaneous Approach (ICD-10-PCS; principal; 2016-11-17)
DX: N12 Tubulo-interstitial nephritis, not specified as acute or chronic (principal); Q07.02 Arnold-Chiari syndrome with hydrocephalus; Q05.4 Unspecified spina bifida with hydrocephalus; I69.351 Hemiplegia and hemiparesis following cerebral infarction affecting right dominant side; E03.9 Hypothyroidism, unspecified; F32.9 Major depressive disorder, single episode, unspecified; Z93.6 Other artificial openings of urinary tract status; Z98.2 Presence of cerebrospinal fluid drainage device; Z89.511 Acquired absence of right leg below knee
CPT/HCPCS: 82947-QW; 96365; 97163-GP; 97166-GO; 97530-GO; 97530-GP; C1751; G8978-GP-CM; G8979-GP-CL; G8987-GO-CL; G8988-GO-CJ; J0692; J0696; J1650; J2550

== ENCOUNTER 2016-11-21 16:34 | Emergency (ER) | payer OTHER, MEDICAID ==
--- NOTE | 2016-11-21 16:43 | CPEKG ---
Heart Rate: 99 RR Interval: 606 P-R Interval: 136 QRSD Interval: 94 QT Interval: 352 QTC Interval: 452 P Blanchard: 43 QRS Blanchard: 43 T Wave Blanchard: 37 EKG Severity - ABNORMAL ECG - EKG Impression: SINUS RHYTHM EKG Impression: PROBABLE INFERIOR INFARCT, AGE INDETERMINATE Electronically Signed By: Sera Aguiar 21-Nov-2016 22:25:36
[2016-11-21 17:19] LABS: ABSOLUTE IMMATURE GRANULOCYTES 0.06 10^3/uL (0.00-0.10); ADD DIFF? NO; ADD MORPH? NO; ADD SCAN? NO; ATYPICAL LYMPHOCYTE FLAG 30 (0-99); FRAGMENT RBC FLAG 0 (0-99); HEMATOCRIT 32.8 % (38.0-47.0); HEMOGLOBIN 11.1 g/dL (12.6-16.3); LEFT SHIFT FLG 10 (0-99); LIPEMIA HEMOLYSIS FLAG 90 (0-99); MEAN CELL HEMOGLOBIN 30.6 pg (27.9-34.1); MEAN CELL HEMOGLOBIN CONCENTR. 33.8 g/dL (32.4-36.7); MEAN CELL VOLUME 90.4 fL (81.5-99.8); MEAN PLATELET VOLUME 9.1 fL (8.7-11.7); PLATELET CLUMPS FLAG 0 (0-99); PLATELET COUNT 258 10^3/uL (150-400); RED BLOOD CELL COUNT 3.63 10^6/uL (4.18-5.33); RED CELL DISTRIBUTION WIDTH 12.9 % (11.5-15.2)
--- NOTE | 2016-11-21 17:19 | EDPHY ---
H & P HPI/ROS: CHIEF COMPLAINT: Chest pain HISTORY OF PRESENT ILLNESS: Patient is a 46-year-old female with a history of Arnold-Chiari malformation, spina bifida, recurrent chest pain presents to the emergency department chest pain. She states her symptoms started 2 hours ago. There was fairly sudden in onset. "It is front of my chest." It does not radiate. She has had a mild nonproductive cough. No hemoptysis. No fevers or chills. Mild shortness of breath. No leg pain or swelling. (she has had a previous amputation). REVIEW OF SYSTEMS: My complete review of systems is negative except as mentioned in the HPI. Past Medical/Surgical History: Includes CVA, Arnold-Chiari malformation, spina bifida, neurogenic bladder, bipolar disorder, pulmonary embolus, hypothyroidism, pancreatitis, depression, C difficile Past surgical history: [employer] shunt, BKA, ileal conduit, urostomy, cholecystectomy Social history: The patient lives at [facility]. She does not smoke. Smoking Status: Never smoked Physical Exam: Vitals noted GENERAL: Well-appearing, in no acute distress, alert. HEENT: Eyes normal to inspection, normal pharynx, no signs of dehydration. NECK: No thyromegaly, no lymphadenopathy, supple. RESPIRATORY: Clear to auscultation bilaterally, no rales, rhonchi or wheezing. CVS: Regular rate and rhythm, no rubs, murmurs, or gallops. ABDOMEN: Soft, nontender, nondistended, no organomegaly. BACK: Normal to inspection, no CVA tenderness. SKIN: Normal color, no rash, warm, dry. No pallor. EXTREMITIES: right BKA, no pedal edema, no calf tenderness, no Homans sign or cords, no joint swelling. NEURO/PSYCH: Alert and oriented x3, normal mood and affect. No obvious cranial nerve deficit. Constitutional: Initial Vital Signs Temperature (C) 37.1 C 11/21/16 16:38 Heart Rate 87 11/21/16 16:38 Respiratory Rate 16 11/21/16 16:38 Blood Pressure 124/81 H 11/21/16 16:38 O2 Sat (%) 97 11/21/16 16:38 O2 Delivery Mode Room Air Allergies/Adverse Reactions: ondansetron HCl [From Zofran (as hydrochloride)] Allergy (Severe, Verified 11/12 19:12) Other-Enter Comments amoxicillin trihydrate [From Augmentin] Allergy (Verified 11/12/16 19:12) ketorolac tromethamine [From Toradol] Allergy (Verified 11/12/16 19:12) potassium clavulanate [From Augmentin] Allergy (Verified 11/12/16 19:12) tramadol Allergy (Verified 11/12/16 19:12) vancomycin Allergy (Verified 11/12/16 19:12) Home Medications: Medication Instructions Recorded ALPRAZolam [Xanax 0.25 MG (*)] 0.25 mg PO TID PRN 08/13/16 Atorvastatin Calcium [Lipitor 40 40 mg PO HS 08/13/16 mg (*)] Ergocalciferol [Vitamin D2 (*)] 50,000 unit PO FR 08/13/16 Gabapentin [Neurontin 300 MG (*)] 900 mg PO TID 08/13/16 Levothyroxine [Synthroid 50 mcg 50 mcg PO DAILY06 08/13/16 (*)] Sertraline HCl [Zoloft 50mg (*)] 50 mg PO HS 08/13/16 Topiramate [Topamax 100MG (*)] 100 mg PO HS 08/13/16 tiZANidine HCL [Zanaflex 2MG (*)] 2 mg PO BID 08/13/16 risperiDONE [Risperdal] 2 mg PO HS 08/20/16 Methenamine Delisa [Hiprex 1 gm (*)] 0.5 gm PO BID 10/29/16 Promethazine HCl [Phenergan 25mg 25 mg PO DAILY PRN 10/29/16 (*)] Acetaminophen [Tylenol 325mg (*)] 650 mg PO Q6H PRN 11/17/16 Bisacodyl [Dulcolax] 10 mg RC DAILY PRN 11/17/16 Magnesium Hydroxide [Milk of 30 ml PO DAILY PRN 11/17/16 Magnesia] Magnesium Hydroxide/Al Hydrox 30 ml PO Q6H PRN 11/17/16 [Mylanta Liquid] Nitroglycerin [Nitrostat 0.4 mg 0.4 mg SL Q5M PRN 11/17/16 (*)] Polyethylene Glycol 3350 [Miralax 17 gm PO DAILY PRN 11/17/16 17 gm (*)] Sennosides 1 - 2 tab PO Q6H PRN 11/17/16 Simethicone [Mylicon] 80 mg PO Q6H PRN 11/17/16 oxyCODONE/APAP 5/325 [Percocet 1 - 2 tab PO Q6H PRN 11/17/16 5/325 (*)] Cefepime HCl [Maxipime] 2 gm IV Q12 #0 vial 11/19/16 Medical Decision Making - Diagnostics EKG Interpretation: Sinus rhythm at 99. Normal axis. Normal intervals. Q-wave in III and AVF. No ST or T-wave abnormality. I compared this with a previous EKG from 11/08/2016 and it is unchanged. ED Course/Re-evaluation: In the emergency department I discussed possible etiologies with the patient. I reviewed her previous record. Of note EMS gave the patient an aspirin EN route. Patient was given Toradol 30 mg IV and Zofran 4 mg IV for pain and nausea. The patient states she has an allergy to Toradol. I discussed treatment with morphine. Patient states she has an allergy to Vicodin which has a narcotic and. I explained narcotics to the patient. Troponin was negative. The CBC showed mild anemia. Her chemistry panel was notable for low bicarb. Patient was noted to have an elevated D-dimer 0.99. Because of the CT angiogram was ordered. Her creatinine is normal. CT angio of the chest: Please refer the dictated report by Dr. Andrew Jacobsen. No acute disease noted. No pulmonary embolus or pneumonia. 17 15: I discussed the result with the patient. She is feeling better. She has no complaints at this time. Patient is comfortable with discharge back to the nursing facility. I answered all her questions. She was given warnings prior to leaving. Differential Diagnosis: My differential includes but is not limited to ACS, acute KS, pulmonary embolus , aneurysm, dissection, myocarditis, pericarditis, pneumonia, bronchitis - Data Points Laboratory Results: Laboratory Results 11/21/16 16:40 11/21/16 16:40 11/21/16 11/21/16 11/21/16 16:40 16:40 16:40 WBC 6.15 10^3/uL 10^3/uL (3.80-9.50) RBC 3.63 10^6/uL L 10^6/uL (4.18-5.33) Hgb 11.1 g/dL L g/dL (12.6-16.3) Hct 32.8 % L % (38.0-47.0) MCV 90.4 fL fL (81.5-99.8) MCH 30.6 pg pg (27.9-34.1) MCHC 33.8 g/dL g/dL (32.4-36.7) RDW 12.9 % % (11.5-15.2) Plt Count 258 10^3/uL 10^3/uL (150-400) MPV 9.1 fL fL (8.7-11.7) Neut % (Auto) 65.5 % % (39.3-74.2) Lymph % (Auto) 19.8 % % (15.0-45.0) [place] % (Auto) 8.3 % % (4.5-13.0) Eos % (Auto) 4.6 % % (0.6-7.6) Baso % (Auto) 0.8 % % (0.3-1.7) Nucleat RBC Rel Count 0.0 % % (0.0-0.2) Absolute Neuts (auto) 4.03 10^3/uL 10^3/uL (1.70-6.50) Absolute Lymphs (auto) 1.22 10^3/uL 10^3/uL (1.00-3.00) Absolute Monos (auto) 0.51 10^3/uL 10^3/uL (0.30-0.80) Absolute Eos (auto) 0.28 10^3/uL 10^3/uL (0.03-0.40) Absolute Basos (auto) 0.05 10^3/uL 10^3/uL (0.02-0.10) Absolute Nucleated RBC 0.00 10^3/uL 10^3/uL (0-0.01) Immature Gran % 1.0 % % (0.0-1.1) Immature Gran # 0.06 10^3/uL 10^3/uL (0.00-0.10) D-Dimer 0.99 ug/mLFEU H ug/mLFEU (0.00-0.50) Sodium 139 mEq/L mEq/L (134-144) Potassium 3.9 mEq/L mEq/L (3.5-5.2) Chloride 110 mEq/L mEq/L (97-110) Carbon Dioxide 19 mEq/l L mEq/l (22-31) Anion Gap 10 mEq/L mEq/L (8-16) BUN 17 mg/dL mg/dL (7-23) Creatinine 0.7 mg/dL mg/dL (0.6-1.0) Estimated GFR > 60 Glucose 107 mg/dL H mg/dL (70-100) Calcium 9.4 mg/dL mg/dL (8.5-10.4) Total Bilirubin 0.6 mg/dL mg/dL (0.1-1.4) Conjugated Bilirubin 0.4 mg/dL mg/dL (0.0-0.5) Unconjugated Bilirubin 0.2 mg/dL mg/dL (0.0-1.1) AST 18 IU/L IU/L (14-46) ALT 40 IU/L IU/L (9-52) Alkaline Phosphatase 81 IU/L IU/L (38-126) Troponin I < 0.012 ng/mL ng/mL (0-0.034) Total Protein 6.8 g/dL g/dL (6.3-8.2) Albumin 3.6 g/dL g/dL (3.5-5.0) Lipase 46.0 IU/L IU/L (23-300) Medications Given: Discontinued Medications Ketorolac Tromethamine (Toradol) 30 mg IVP EDNOW ONE Stop: 11/21/16 17:21 Last Admin: 11/21/16 17:35 Dose: Not Given Morphine Sulfate (Morphine) 4 mg IVP EDNOW ONE Stop: 11/21/16 17:46 Last Admin: 11/21/16 17:52 Dose: 4 mg Promethazine HCl (Phenergan) 12.5 mg IVP ONCE ONE Stop: 11/21/16 17:21 Last Admin: 11/21/16 17:34 Dose: 12.5 mg Departure - Departure Disposition: Home, Routine, Self-Care Clinical Impression: Chest pain Qualifiers: Chest pain type: precordial pain Qualified Code(s): R07.2 - Precordial pain Condition: Good Instructions: Chest Pain (ED) Additional Instructions: Return with increasing chest pain, shortness of breath, fever or any other concerns. Referrals: Bell Garcia MD [Primary Care Provider] - 2-3 days without fail
[2016-11-21] MEDS ORDERED: PROMETHAZINE HCL 25 MG/ML INJ IVP ONE (17:20)
[2016-11-21] MEDS ORDERED: KETOROLAC 30 MG/1 ML SDV IVP ONE (17:20)
[2016-11-21 17:39] LABS: ALANINE AMINOTRANSFERASE 40 IU/L (9-52); ALBUMIN 3.6 g/dL (3.5-5.0); ALKALINE PHOSPHATASE 81 IU/L (38-126); ANION GAP 10 mEq/L (8-16); ASPARTATE AMINOTRANSFERASE 18 IU/L (14-46); BILIRUBIN,TOTAL 0.6 mg/dL (0.1-1.4); BILIRUBIN-CONJUGATED 0.4 mg/dL (0.0-0.5); BILIRUBIN-UNCONJUGATED 0.2 mg/dL (0.0-1.1); CALCIUM 9.4 mg/dL (8.5-10.4); CARBON DIOXIDE 19 mEq/l (22-31); CHLORIDE 110 mEq/L (97-110); CREATININE 0.7 mg/dL (0.6-1.0); GLOMERULAR FILTRATION RATE > 60; GLUCOSE 107 mg/dL (70-100); POTASSIUM 3.9 mEq/L (3.5-5.2); SODIUM 139 mEq/L (134-144); TOTAL PROTEIN 6.8 g/dL (6.3-8.2)
[2016-11-21 17:49] LABS: TROPONIN I < 0.012 ng/mL (0-0.034)
[2016-11-21 18:03] VITALS: PULSE 94; RESP 18
[2016-11-21] MEDS ORDERED: IOPAMIDOL (ISOVUE-370) 150 ML BTL IV ONE (18:03)
[2016-11-21 19:25] VITALS: BP 128/92; TEMP 97.9; O2SAT 98
== END 2016-11-21 20:30 | disposition home or self-care (01) ==
LOC: EDUNIT#
DX: R07.2 Precordial pain (principal); Z86.73 Personal history of transient ischemic attack (TIA), and cerebral infarction without residual deficits
CPT/HCPCS: 71275; 93005; 96374; 96375; 99285; J1885; J2550; Q9967

== ENCOUNTER 2016-11-23 23:56 | Emergency (ER) | payer OTHER, MEDICAID ==
[2016-11-24 00:10] VITALS: RESP 20
--- NOTE | 2016-11-24 00:12 | CPEKG ---
Heart Rate: 96 RR Interval: 625 P-R Interval: 136 QRSD Interval: 90 QT Interval: 360 QTC Interval: 455 P Milton: 64 QRS Milton: 69 T Wave Milton: 67 EKG Severity - ABNORMAL ECG - EKG Impression: SINUS RHYTHM Electronically Signed By: Julisa Hanson 25-Nov-2016 04:18:34
[2016-11-24] MEDS ORDERED: NS 1,000 ML IV ONE (01:33)
[2016-11-24] MEDS ORDERED: PROMETHAZINE HCL 25 MG/ML INJ IVP ONE (01:33)
[2016-11-24 02:51] LABS: % IMMATURE GRANULYOCYTES 0.2 % (0.0-1.1); ABSOLUTE IMMATURE GRANULOCYTES 0.01 10^3/uL (0.00-0.10); ADD DIFF? NO; ADD MORPH? NO; ADD SCAN? NO; ATYPICAL LYMPHOCYTE FLAG 20 (0-99); FRAGMENT RBC FLAG 0 (0-99); HEMATOCRIT 33.3 % (38.0-47.0); HEMOGLOBIN 11.2 g/dL (12.6-16.3); LEFT SHIFT FLG 0 (0-99); LIPEMIA HEMOLYSIS FLAG 80 (0-99); MEAN CELL HEMOGLOBIN 30.3 pg (27.9-34.1); MEAN CELL HEMOGLOBIN CONCENTR. 33.6 g/dL (32.4-36.7); MEAN PLATELET VOLUME 8.8 fL (8.7-11.7); PLATELET CLUMPS FLAG 0 (0-99); PLATELET COUNT 231 10^3/uL (150-400); RED CELL DISTRIBUTION WIDTH 13.1 % (11.5-15.2)
[2016-11-24 03:07] LABS: ANION GAP 9 mEq/L (8-16); CALCIUM 9.4 mg/dL (8.5-10.4); CARBON DIOXIDE 21 mEq/l (22-31); CHLORIDE 111 mEq/L (97-110); CREATININE 0.7 mg/dL (0.6-1.0); GLOMERULAR FILTRATION RATE > 60; GLUCOSE 89 mg/dL (70-100); SODIUM 141 mEq/L (134-144)
[2016-11-24 03:19] LABS: TROPONIN I < 0.012 ng/mL (0-0.034)
--- NOTE | 2016-11-24 03:24 | EDPHY ---
H & P Stated Complaint: PAIN ALL OVER, CHEST PAIN SEEN 2 DAYS AGO UTI NOW Time Seen by Provider: 11/24/16 00:54 HPI/ROS: HPI The patient presents with chest pain which she describes as a pressure-like sensation across her chest which started about 6:00 p.m. today and radiates to both arms. This is associated with nausea. It occurred while she was lying in her bed. It is been constant ever since. She is brought in by ambulance from [facility] where she resides. She says she does have chronic pain, though this is worse than her usual pain. She denies any trauma. She does not have any shortness of breath, vomiting, diaphoresis or dizziness She has been seen here frequently for chest pain, she was here within the last week and a CTA was performed which showed no PE after she had a positive D- dimer. I have seen her for an identical presentation about 1 month ago. REVIEW OF SYSTEMS Constitutional: No fever, no chills. Eyes: No discharge. ENT: No sore throat. Cardiovascular: See HPI Respiratory: No cough, no shortness of breath. Gastrointestinal: No abdominal pain, no vomiting. Genitourinary: No hematuria. Musculoskeletal: No back pain. Skin: No rashes. Neurological: No headache. PMHx: Spina bifida, functional quadriplegic, currently being treated for pyelonephritis Soc Hx: Resides at [facility] PHYSICAL General Appearance: Alert, no distress Eyes: Pupils equal and round no pallor or injection ENT, Mouth: Mucous membranes dry Respiratory: There are no retractions, lungs are clear to auscultation Cardiovascular: Regular rate and rhythm Gastrointestinal: Abdomen is soft and non-tender, no masses, bowel sounds normal Neurological: A&O, moves all extremities Skin: Warm and dry, no rashes Musculoskeletal: Neck is supple non tender Extremities: Right BKA, PICC line in place in right upper extremity Psychiatric: Patient is oriented X 3, there is no agitation Source: Patient - Personal History Current Tetanus/Diphtheria Vaccine: Yes Current Tetanus Diphtheria and Acellular Pertussis (TDAP): Yes - Medical/Surgical History Hx Asthma: No Hx Chronic Respiratory Disease: No Hx Diabetes: No Hx Cardiac Disease: No Hx Renal Disease: No Hx Cirrhosis: No Hx Alcoholism: No Hx HIV/AIDS: No Hx Splenectomy or Spleen Trauma: No Other PMH: 1. History of Clostridium difficile. 2. History of CVA with resultant right-sided weakness. 3. Arnold-Chiari status post [employer] shunt. 4. 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 5. History of PE not on anticoagulation. 6. Spina bifida with neurogenic bladder and urostomy. 7. Functional quadriplegia. 8. Bipolar disease. 9. Depression. 10. History of pancreatitis. 11. Hypothyroidism. The 12 status post cholecystectomy - Social History Smoking Status: Never smoked Constitutional: Initial Vital Signs Temperature (C) 36.8 C 11/24/16 00:07 Heart Rate 108 H 11/24/16 00:07 Respiratory Rate 20 11/24/16 00:07 Blood Pressure 107/82 H 11/24/16 00:07 O2 Sat (%) 96 11/24/16 00:07 O2 Delivery Mode Room Air Allergies/Adverse Reactions: ondansetron HCl [From Zofran (as hydrochloride)] Allergy (Severe, Verified 11/24 00:10) Other-Enter Comments amoxicillin trihydrate [From Augmentin] Allergy (Verified 11/24/16 00:10) ketorolac tromethamine [From Toradol] Allergy (Verified 11/24/16 00:10) potassium clavulanate [From Augmentin] Allergy (Verified 11/24/16 00:10) tramadol Allergy (Verified 11/24/16 00:10) vancomycin Allergy (Verified 11/24/16 00:10) Home Medications: Medication Instructions Recorded ALPRAZolam [Xanax 0.25 MG (*)] 0.25 mg PO TID PRN 08/13/16 Atorvastatin Calcium [Lipitor 40 40 mg PO HS 08/13/16 mg (*)] Ergocalciferol [Vitamin D2 (*)] 50,000 unit PO FR 08/13/16 Gabapentin [Neurontin 300 MG (*)] 900 mg PO TID 08/13/16 Levothyroxine [Synthroid 50 mcg 50 mcg PO DAILY06 08/13/16 (*)] Sertraline HCl [Zoloft 50mg (*)] 50 mg PO HS 08/13/16 Topiramate [Topamax 100MG (*)] 100 mg PO HS 08/13/16 tiZANidine HCL [Zanaflex 2MG (*)] 2 mg PO BID 08/13/16 risperiDONE [Risperdal] 2 mg PO HS 08/20/16 Methenamine Delisa [Hiprex 1 gm (*)] 0.5 gm PO BID 10/29/16 Promethazine HCl [Phenergan 25mg 25 mg PO DAILY PRN 10/29/16 (*)] Acetaminophen [Tylenol 325mg (*)] 650 mg PO Q6H PRN 11/17/16 Bisacodyl [Dulcolax] 10 mg RC DAILY PRN 11/17/16 Magnesium Hydroxide [Milk of 30 ml PO DAILY PRN 11/17/16 Magnesia] Magnesium Hydroxide/Al Hydrox 30 ml PO Q6H PRN 11/17/16 [Mylanta Liquid] Nitroglycerin [Nitrostat 0.4 mg 0.4 mg SL Q5M PRN 11/17/16 (*)] Polyethylene Glycol 3350 [Miralax 17 gm PO DAILY PRN 11/17/16 17 gm (*)] Sennosides 1 - 2 tab PO Q6H PRN 11/17/16 Simethicone [Mylicon] 80 mg PO Q6H PRN 11/17/16 oxyCODONE/APAP 5/325 [Percocet 1 - 2 tab PO Q6H PRN 11/17/16 5/325 (*)] Cefepime HCl [Maxipime] 2 gm IV Q12 #0 vial 11/19/16 Medical Decision Making - Diagnostics EKG Interpretation: EKG: Complete interpretation has been separately recorded in the [employer] archive. Summary impression: Q-wavesin lead 3, unchanged from prior Imaging: Chest x-ray shows no infiltrate, interpreted by me, radiology interpretation is pending. Differential Diagnosis: This is a 46-year-old female with multiple medical problems including Arnold Chiari malformation with [employer] shunt, spina bifida, right-sided BKA from osteomyelitis, chronic pain, functional quadriplegia, recent diagnosis of urinary tract infection who presents from [facility] with chest pain. This is a frequent complaint for the patient and she has been seen here often for this. She is presenting identically to when I saw her last month. At that time her [facility] was concerned that she was pain medication seeking. She does have chronic pain and I suspect she developed chest pain occasionally has an exacerbation of this. Differential diagnosis would also include ACS, pneumonia, pneumothorax, GERD. In the emergency room, she was given Phenergan per her request for her nausea. She did not have any vomiting here. I did not give her any opiate pain medications despite her request for these. She says that she was given them on her last visit so she wonders while a she is not getting them currently. I told her I felt that these were not help her pain. Workup including chest x-ray , EKG, troponin and basic labs was all unremarkable. She will be [facility] in [facility]. - Data Points Laboratory Results: Laboratory Results 11/24/16 02:45 11/24/16 02:45 11/24/16 11/24/16 02:45 02:45 WBC 6.06 10^3/uL 10^3/uL (3.80-9.50) RBC 3.70 10^6/uL L 10^6/uL (4.18-5.33) Hgb 11.2 g/dL L g/dL (12.6-16.3) Hct 33.3 % L % (38.0-47.0) MCV 90.0 fL fL (81.5-99.8) MCH 30.3 pg pg (27.9-34.1) MCHC 33.6 g/dL g/dL (32.4-36.7) RDW 13.1 % % (11.5-15.2) Plt Count 231 10^3/uL 10^3/uL (150-400) MPV 8.8 fL fL (8.7-11.7) Neut % (Auto) 60.3 % % (39.3-74.2) Lymph % (Auto) 22.6 % % (15.0-45.0) [place] % (Auto) 10.6 % % (4.5-13.0) Eos % (Auto) 5.6 % % (0.6-7.6) Baso % (Auto) 0.7 % % (0.3-1.7) Nucleat RBC Rel Count 0.0 % % (0.0-0.2) Absolute Neuts (auto) 3.66 10^3/uL 10^3/uL (1.70-6.50) Absolute Lymphs (auto) 1.37 10^3/uL 10^3/uL (1.00-3.00) Absolute Monos (auto) 0.64 10^3/uL 10^3/uL (0.30-0.80) Absolute Eos (auto) 0.34 10^3/uL 10^3/uL (0.03-0.40) Absolute Basos (auto) 0.04 10^3/uL 10^3/uL (0.02-0.10) Absolute Nucleated RBC 0.00 10^3/uL 10^3/uL (0-0.01) Immature Gran % 0.2 % % (0.0-1.1) Immature Gran # 0.01 10^3/uL 10^3/uL (0.00-0.10) Sodium 141 mEq/L mEq/L (134-144) Potassium 4.0 mEq/L mEq/L (3.5-5.2) Chloride 111 mEq/L H mEq/L (97-110) Carbon Dioxide 21 mEq/l L mEq/l (22-31) Anion Gap 9 mEq/L mEq/L (8-16) BUN 19 mg/dL mg/dL (7-23) Creatinine 0.7 mg/dL mg/dL (0.6-1.0) Estimated GFR > 60 Glucose 89 mg/dL mg/dL (70-100) Calcium 9.4 mg/dL mg/dL (8.5-10.4) Troponin I < 0.012 ng/mL ng/mL (0-0.034) Medications Given: Discontinued Medications Sodium Chloride (Ns) 1,000 mls @ 0 mls/hr IV ONCE ONE PRN Reason: Wide Open Stop: 11/24/16 01:34 Last Admin: 11/24/16 01:50 Dose: 1,000 mls Promethazine HCl (Phenergan) 12.5 mg IVP ONCE ONE Stop: 11/24/16 01:34 Last Admin: 11/24/16 01:45 Dose: 12.5 mg Departure - Departure Disposition: Home, Routine, Self-Care Clinical Impression: Chest pain Qualifiers: Chest pain type: unspecified Qualified Code(s): R07.9 - Chest pain, unspecified Condition: Good Instructions: Chest Pain (ED) Referrals: LOIS JOHNSON [Primary Care Provider] - As per Instructions
[2016-11-24 04:23] VITALS: BP 117/80; PULSE 85; TEMP 97.9; O2SAT 94
== END 2016-11-24 04:26 | disposition home or self-care (01) ==
LOC: EDUNIT#
DX: R07.9 Chest pain, unspecified (principal); Z86.73 Personal history of transient ischemic attack (TIA), and cerebral infarction without residual deficits
CPT/HCPCS: 71010; 93005; 96361; 96374; 99285; J2550

== ENCOUNTER 2016-12-17 18:15 | Emergency (ER) | payer OTHER, MEDICAID ==
[2016-12-17 18:33] VITALS: TEMP 98.1; O2SAT 96
--- NOTE | 2016-12-17 18:42 | EDPHY ---
H & P Time Seen by Provider: 12/17/16 18:23 HPI/ROS: CHIEF COMPLAINT: Right-sided kidney pain HISTORY OF PRESENT ILLNESS: Patient is a 46-year-old female with multiple visits to the emergency department. She has a urostomy in place since . She complains of right sided kidney pain. This is similar to previous infections. She has not noticed any change in output over urostomy bag. It is slightly more cloudy than normal. She denies abdominal pain. No nausea or vomiting. No fever. She has no chest pain or shortness of breath. REVIEW OF SYSTEMS: My complete review of systems is negative except as mentioned in the HPI. Past Medical/Surgical History: Includes urostomy Smoking Status: Never smoked Physical Exam: Vitals noted GENERAL: Well-appearing, in no acute distress, alert. HEENT: Eyes normal to inspection, normal pharynx, no signs of dehydration. NECK: No thyromegaly, no lymphadenopathy, supple. RESPIRATORY: Clear to auscultation bilaterally, no rales, rhonchi or wheezing. CVS: Regular rate and rhythm, no rubs, murmurs, or gallops. ABDOMEN: Soft, nontender, nondistended, no organomegaly. Urostomy bag in place. It is slightly cloudy. BACK: Normal to inspection, no CVA tenderness. SKIN: Normal color, no rash, warm, dry. No pallor. EXTREMITIES: No pedal edema, no joint swelling. NEURO/PSYCH: [Alert and oriented, normal mood and affect. Constitutional: Initial Vital Signs Temperature (C) 36.7 C 12/17/16 18:22 Heart Rate 88 12/17/16 18:22 Respiratory Rate 17 12/17/16 18:22 Blood Pressure 110/78 12/17/16 18:22 O2 Sat (%) 96 12/17/16 18:22 O2 Delivery Mode Room Air Allergies/Adverse Reactions: ondansetron HCl [From Zofran (as hydrochloride)] Allergy (Severe, Verified 12/17 18:21) Other-Enter Comments amoxicillin trihydrate [From Augmentin] Allergy (Verified 12/17/16 18:21) ketorolac tromethamine [From Toradol] Allergy (Verified 12/17/16 18:21) potassium clavulanate [From Augmentin] Allergy (Verified 12/17/16 18:21) tramadol Allergy (Verified 12/17/16 18:21) vancomycin Allergy (Verified 12/17/16 18:21) Home Medications: Medication Instructions Recorded ALPRAZolam [Xanax 0.25 MG (*)] 0.25 mg PO TID PRN 08/13/16 Atorvastatin Calcium [Lipitor 40 40 mg PO HS 08/13/16 mg (*)] Ergocalciferol [Vitamin D2 (*)] 50,000 unit PO FR 08/13/16 Gabapentin [Neurontin 300 MG (*)] 900 mg PO TID 08/13/16 Levothyroxine [Synthroid 50 mcg 50 mcg PO DAILY06 08/13/16 (*)] Sertraline HCl [Zoloft 50mg (*)] 50 mg PO HS 08/13/16 Topiramate [Topamax 100MG (*)] 100 mg PO HS 08/13/16 tiZANidine HCL [Zanaflex 2MG (*)] 2 mg PO BID 08/13/16 risperiDONE [Risperdal] 2 mg PO HS 08/20/16 Methenamine Delisa [Hiprex 1 gm (*)] 0.5 gm PO BID 10/29/16 Promethazine HCl [Phenergan 25mg 25 mg PO DAILY PRN 10/29/16 (*)] Acetaminophen [Tylenol 325mg (*)] 650 mg PO Q6H PRN 11/17/16 Bisacodyl [Dulcolax] 10 mg RC DAILY PRN 11/17/16 Magnesium Hydroxide [Milk of 30 ml PO DAILY PRN 11/17/16 Magnesia] Magnesium Hydroxide/Al Hydrox 30 ml PO Q6H PRN 11/17/16 [Mylanta Liquid] Nitroglycerin [Nitrostat 0.4 mg 0.4 mg SL Q5M PRN 11/17/16 (*)] Polyethylene Glycol 3350 [Miralax 17 gm PO DAILY PRN 11/17/16 17 gm (*)] Sennosides 1 - 2 tab PO Q6H PRN 11/17/16 Simethicone [Mylicon] 80 mg PO Q6H PRN 11/17/16 oxyCODONE/APAP 5/325 [Percocet 1 - 2 tab PO Q6H PRN 11/17/16 5/325 (*)] Cefepime HCl [Maxipime] 2 gm IV Q12 #0 vial 11/19/16 Cephalexin [Keflex (*)] 500 mg PO QID 10 Days 12/17/16 Medical Decision Making ED Course/Re-evaluation: In the emergency department I discussed possible etiologies with the patient. I answered all her questions. IV was placed. Laboratory studies including urine were obtained. IV the patient's laboratory studies. Her renal function was normal. Chemistry panel unremarkable. Her CBC was hemolyzed rejected. Her urine showed positive red cells, positive white cells, leuk esterase and protein. Chest x-ray: No acute disease noted. Because of these findings patient will be treated with antibiotics for urinary tract infection/pyelonephritis. I discussed the plan with the patient answered all her questions. She will be given Keflex orally. She was given a dose in the emergency department and discharged with a prescription. She will return with worsening symptoms. She was given warnings prior to leaving. Differential Diagnosis: My differential includes but is not limited to urinary tract infection, pyelonephritis, bacteremia, sepsis, small-bowel obstruction, perforation, cholecystitis, pancreatitis, pneumonia, P - Data Points Laboratory Results: Laboratory Results 12/17/16 19:00 12/17/16 19:00 12/17/16 12/17/16 12/17/16 19:00 19:00 19:00 WBC REJ RBC TNP Hgb TNP Hct TNP MCV TNP MCH TNP MCHC TNP RDW TNP Plt Count TNP MPV TNP Neut % (Auto) TNP Lymph % (Auto) TNP [place] % (Auto) TNP Eos % (Auto) TNP Baso % (Auto) TNP Nucleat RBC Rel Count TNP Absolute Neuts (auto) TNP Absolute Lymphs (auto) TNP Absolute Monos (auto) TNP Absolute Eos (auto) TNP Absolute Basos (auto) TNP Absolute Nucleated RBC TNP Immature Gran % TNP Immature Gran # TNP Sodium 139 mEq/L mEq/L (134-144) Potassium 3.5 mEq/L mEq/L (3.5-5.2) Chloride 106 mEq/L mEq/L (97-110) Carbon Dioxide 18 mEq/l L mEq/l (22-31) Anion Gap 15 mEq/L mEq/L (8-16) BUN 18 mg/dL mg/dL (7-23) Creatinine 0.9 mg/dL mg/dL (0.6-1.0) Estimated GFR > 60 Glucose 112 mg/dL H mg/dL (70-100) Calcium 10.0 mg/dL mg/dL (8.5-10.4) Total Bilirubin 0.7 mg/dL mg/dL (0.1-1.4) Conjugated Bilirubin 0.4 mg/dL mg/dL (0.0-0.5) Unconjugated Bilirubin 0.3 mg/dL mg/dL (0.0-1.1) AST 16 IU/L IU/L (14-46) ALT 35 IU/L IU/L (9-52) Alkaline Phosphatase 107 IU/L IU/L (38-126) Total Protein 7.7 g/dL g/dL (6.3-8.2) Albumin 4.3 g/dL g/dL (3.5-5.0) Urine Color ESDRAS Urine Appearance TURBID Urine pH 9.0 H (5.0-7.5) Ur Specific [place] 1.010 (1.002-1.030) Urine Protein 2+ H (NEGATIVE) Urine Ketones NEGATIVE (NEGATIVE) Urine Blood NEGATIVE (NEGATIVE) Urine Nitrate NEGATIVE (NEGATIVE) Urine Bilirubin NEGATIVE (NEGATIVE) Urine Urobilinogen NEGATIVE EU EU (0.2-1.0) Ur Leukocyte Esterase 3+ H (NEGATIVE) Urine RBC 10-15 /hpf H /hpf (0-3) Urine WBC 5-10 /hpf H /hpf (0-3) Ur Epithelial Cells TRACE /lpf /lpf (NONE-1+) Triple Phos Crystals PRESENT /hpf /hpf (NONE-1+) Urine Bacteria TRACE /hpf H /hpf (NONE SEEN) Urine Mucus TRACE /lpf /lpf (NONE-1+) Ur Culture Indicated? INDICATED H (NI) Urine Glucose NEGATIVE (NEGATIVE) Departure - Departure Disposition: Home, Routine, Self-Care Clinical Impression: UTI (urinary tract infection) Qualifiers: Urinary tract infection type: acute cystitis Hematuria presence: with hematuria Qualified Code(s): N30.01 - Acute cystitis with hematuria Condition: Good Instructions: Urinary Tract Infection in Women (ED) Additional Instructions: Return with increasing pain, fever, vomiting or any other concerns. Referrals: Patient,NotPresent [Unknown] - As per Instructions Prescriptions: Cephalexin [Keflex (*)] 500 mg PO QID 10 Days
[2016-12-17 19:14] LABS: COLOR AMBER; LEUKOCYTE ESTERASE,URINE 3+ (NEGATIVE); NITRITE,URINE NEGATIVE (NEGATIVE)
[2016-12-17 19:30] LABS: BACTERIA TRACE /hpf (NONE SEEN); MUCUS TRACE /lpf (NONE-1+)
[2016-12-17 19:34] LABS: ALANINE AMINOTRANSFERASE 35 IU/L (9-52); ALBUMIN 4.3 g/dL (3.5-5.0); ALKALINE PHOSPHATASE 107 IU/L (38-126); ANION GAP 15 mEq/L (8-16); ASPARTATE AMINOTRANSFERASE 16 IU/L (14-46); BILIRUBIN,TOTAL 0.7 mg/dL (0.1-1.4); BILIRUBIN-CONJUGATED 0.4 mg/dL (0.0-0.5); BILIRUBIN-UNCONJUGATED 0.3 mg/dL (0.0-1.1); CARBON DIOXIDE 18 mEq/l (22-31); CHLORIDE 106 mEq/L (97-110); CREATININE 0.9 mg/dL (0.6-1.0); GLOMERULAR FILTRATION RATE > 60; GLUCOSE 112 mg/dL (70-100); POTASSIUM 3.5 mEq/L (3.5-5.2); SODIUM 139 mEq/L (134-144); TOTAL PROTEIN 7.7 g/dL (6.3-8.2)
[2016-12-17] MEDS ORDERED: CEPHALEXIN 500MG PREPACK#4 BTL TAKEHOME ONE (20:40)
[2016-12-17 22:00] VITALS: BP 93/80; PULSE 75; RESP 18
== END 2016-12-17 22:00 | disposition home or self-care (01) ==
LOC: EDUNIT#
DX: N30.01 Acute cystitis with hematuria (principal); B95.61 Methicillin susceptible Staphylococcus aureus infection as the cause of diseases classified elsewhere; B96.5 Pseudomonas (aeruginosa) (mallei) (pseudomallei) as the cause of diseases classified elsewhere

== ENCOUNTER 2016-12-23 19:28 | Emergency (ER) | payer OTHER, MEDICAID ==
--- NOTE | 2016-12-23 19:31 | EDPHY ---
H & P Time Seen by Provider: 12/23/16 19:29 HPI/ROS: CHIEF COMPLAINT: Chest pain HISTORY OF PRESENT ILLNESS: This patient is a 46 year old female arriving by EMS from [facility] who presents to the Emergency Department complaining of an acute exacerbation of her chronic, intermittent chest pain presenting around 1800 tonight. She describes her pain as a crushing sensation localized to the center of her chest with radiation to her jaw and left arm. She also complains of mild nausea with vomiting and mild abdominal pain. She denies diarrhea, fever , chills, or shortness of breath. She is well-known to this facility and has been seen here frequently for chest pain, most recently on 11/24/2016. She has an extensive medical history as described below. No known coronary artery disease. Cardiac catheterization 15 years ago reportedly normal. REVIEW OF SYSTEMS: Constitutional: No fever, no chills Eyes: No visual changes ENT: No sore throat Respiratory: No cough, no shortness of breath Cardiac: +chest pain Gastrointestinal: +nausea, +vomiting, +mild abdominal pain Genitourinary: No hematuria, no dysuria Musculoskeletal: No leg pain or swelling Skin: No rash Neurological: No headache, no numbness, no weakness Psychiatric: No depression Past Medical/Surgical History: Prior medical records reviewed by myself, including most recent visit to the ED for chest pain on 11/24/2016. Medical history includes: DRAPERY HEAD FORMER shunt, spina bifida, right BKA, ileal conduit, urostomy, cholecystectomy, chronic pain (gabapentin). Social History: Lives in [facility]. Physical Exam: General Appearance: Alert, does not appear in pain Eyes: Pupils equal and round, no conjunctival pallor or injection ENT, Mouth: Mucous membranes moist Neck: Normal inspection Respiratory: Lungs are clear to auscultation Cardiovascular: Regular rate and rhythm Gastrointestinal: Abdomen is soft, mild epigastric tenderness Neurological: A&O, generalized weakness Skin: Warm and dry, no rash Extremities: Right BKA, nontender Psychiatric: Flat affect Constitutional: Initial Vital Signs Temperature (C) 36.9 C 12/23/16 19:52 Heart Rate 102 H 12/23/16 19:52 Respiratory Rate 18 12/23/16 19:52 Blood Pressure 111/78 12/23/16 19:52 O2 Sat (%) 94 12/23/16 19:52 O2 Delivery Mode Room Air Allergies/Adverse Reactions: ondansetron HCl [From Zofran (as hydrochloride)] Allergy (Severe, Verified 12/17 18:21) Other-Enter Comments amoxicillin trihydrate [From Augmentin] Allergy (Verified 12/17/16 18:21) ketorolac tromethamine [From Toradol] Allergy (Verified 12/17/16 18:21) potassium clavulanate [From Augmentin] Allergy (Verified 12/17/16 18:21) tramadol Allergy (Verified 12/17/16 18:21) vancomycin Allergy (Verified 12/17/16 18:21) Home Medications: Medication Instructions Recorded ALPRAZolam [Xanax 0.25 MG (*)] 0.25 mg PO TID PRN 08/13/16 Atorvastatin Calcium [Lipitor 40 40 mg PO HS 08/13/16 mg (*)] Ergocalciferol [Vitamin D2 (*)] 50,000 unit PO FR 08/13/16 Gabapentin [Neurontin 300 MG (*)] 900 mg PO TID 08/13/16 Levothyroxine [Synthroid 50 mcg 50 mcg PO DAILY06 08/13/16 (*)] Sertraline HCl [Zoloft 50mg (*)] 50 mg PO HS 08/13/16 Topiramate [Topamax 100MG (*)] 100 mg PO HS 08/13/16 tiZANidine HCL [Zanaflex 2MG (*)] 2 mg PO BID 08/13/16 risperiDONE [Risperdal] 2 mg PO HS 08/20/16 Methenamine Delisa [Hiprex 1 gm (*)] 0.5 gm PO BID 10/29/16 Promethazine HCl [Phenergan 25mg 25 mg PO DAILY PRN 10/29/16 (*)] Acetaminophen [Tylenol 325mg (*)] 650 mg PO Q6H PRN 11/17/16 Bisacodyl [Dulcolax] 10 mg RC DAILY PRN 11/17/16 Magnesium Hydroxide [Milk of 30 ml PO DAILY PRN 11/17/16 Magnesia] Magnesium Hydroxide/Al Hydrox 30 ml PO Q6H PRN 11/17/16 [Mylanta Liquid] Nitroglycerin [Nitrostat 0.4 mg 0.4 mg SL Q5M PRN 11/17/16 (*)] Polyethylene Glycol 3350 [Miralax 17 gm PO DAILY PRN 11/17/16 17 gm (*)] Sennosides 1 - 2 tab PO Q6H PRN 11/17/16 Simethicone [Mylicon] 80 mg PO Q6H PRN 11/17/16 oxyCODONE/APAP 5/325 [Percocet 1 - 2 tab PO Q6H PRN 11/17/16 5/325 (*)] Cefepime HCl [Maxipime] 2 gm IV Q12 #0 vial 11/19/16 Cephalexin [Keflex (*)] 500 mg PO QID 10 Days 12/17/16 Medical Decision Making - Diagnostics EKG Interpretation: EKG interpreted by me reveals normal sinus rhythm, rate 92, inferior Q waves. No change from previous EKG obtained on 11/24/2016. Imaging: Chest x-ray reviewed by me reveals no acute disease. ED Course/Re-evaluation: 1928: Took EMS report at bedside. Nitroglycerin administered at the facility. Aspirin administered in transport. BP 122/78. HR 80. This 46 year old female is well-known to this facility for frequent visits for a variety of complaints including chest pain. She was most recently seen for chest pain on 11/24 and was worked up for cardiac etiology at that time with no acute findings. Her presentation today is similar to previous with complaint of crushing pain, though today she reports jaw and left arm radiation. Her exam is benign apart from mild epigastric tenderness. Will proceed with cardiac work-up including EKG, chest x-ray, and labs. This patient has very difficult IV access. After review of her medical record and discussion with the patient, I decided not to pursue further attempts at IV access. She does not appear in pain and is not vomiting. Zofran ODT given per ED RN; after administration, pt states that she is allergic to Zofran. Prior rxn is SOB. Obs in ED, pt had no signs/sx of allergic rxn. Tolerated Zofran well. Pt angry she is not receiving IV narcotics for pain control, concerning for drug seeking behavior. d/w pt, calmed her down, told her we would not be giving narcotics for this pain. 300mg PO Gabapentin and 25mg Phenergan suppository administered for pain and nausea. Tolerated oral fluids well and felt better. Chemistries obtained and are unremarkable. No evidence of pancreatitis. Troponin is negative. I discussed lab and imaging results with the patient. She will be discharged back to [facility] in good condition with customary return precautions and referral to cardiology. Differential Diagnosis: Differential diagnosis includes though it is not limited to acute pancreatitis, pneumonia, pneumothorax, pulmonary embolism, aortic dissection, pericarditis, acute coronary syndrome. - Data Points Laboratory Results: Laboratory Results 12/23/16 20:01 12/23/16 20:01 Medications Given: Discontinued Medications Diphenhydramine HCl (Benadryl Injection) 25 mg IVP EDNOW ONE Stop: 12/23/16 19:45 Last Admin: 12/23/16 20:14 Dose: Not Given Sodium Chloride (Ns) 1,000 mls @ 0 mls/hr IV ONCE ONE PRN Reason: Wide Open Stop: 12/23/16 19:41 Last Admin: 12/23/16 20:14 Dose: Not Given Metoclopramide HCl (Reglan Injection) 10 mg IVP EDNOW ONE Stop: 12/23/16 19:45 Last Admin: 12/23/16 20:16 Dose: Not Given Ondansetron HCl (Zofran Odt) 4 mg PO EDNOW ONE Stop: 12/23/16 20:26 Last Admin: 12/23/16 20:31 Dose: 4 mg Promethazine HCl (Phenergan Rectal) 25 mg [facility] EDNOW ONE Stop: 12/23/16 20:34 Last Admin: 12/23/16 20:37 Dose: 25 mg Departure - Departure Disposition: Home, Routine, Self-Care Clinical Impression: Atypical chest pain Condition: Good Instructions: Chest Pain (ED) Additional Instructions: 1. Continue to take your medications as prescribed. 2. Follow-up with a technical specialist cytology should you wish to proceed with further evaluation of your chest pain. We have referred you to the on-call provider, Dr. Arzate. 3. Return to the Emergency Department if you experience uncontrollable vomiting , recurrence of severe chest pain, high fever, or for other serious concerns. Referrals: Michael Nicholson MD [Medical Doctor] - As per Instructions Report Scribed for: Krissy Bauer Report Scribed by: Michelle Grush Date of Report: 12/23/16 Time of Report: 19:30 Physician Review and Approval Statement: 12/23/16 19:30 Portions of this note were transcribed by a medical laboratory technologist. I personally performed a history, physical exam, medical decision making, and confirmed accuracy of information the transcribed note.
[2016-12-23] MEDS ORDERED: NS 1,000 ML IV ONE (19:40)
--- NOTE | 2016-12-23 19:43 | CPEKG ---
Heart Rate: 92 RR Interval: 652 P-R Interval: 136 QRSD Interval: 94 QT Interval: 364 QTC Interval: 451 P [place]: 60 QRS [place]: 73 T Wave [place]: 32 EKG Severity - ABNORMAL ECG - EKG Impression: SINUS RHYTHM Electronically Signed By: Krissy Bauer 23-Dec-2016 20:47:08
[2016-12-23] MEDS ORDERED: METOCLOPRAMIDE 10 MG/2 ML VIAL IVP ONE (19:44)
[2016-12-23] MEDS ORDERED: GABAPENTIN 300 MG CAP ONE (20:17)
[2016-12-23] MEDS ORDERED: ONDANSETRON DISINTEGRATING 4 MG TAB ONE (20:17)
[2016-12-23 20:18] LABS: ALANINE AMINOTRANSFERASE 32 IU/L (9-52); ALBUMIN 4.5 g/dL (3.5-5.0); ALKALINE PHOSPHATASE 110 IU/L (38-126); ANION GAP 12 mEq/L (8-16); ASPARTATE AMINOTRANSFERASE 24 IU/L (14-46); BILIRUBIN,TOTAL 0.9 mg/dL (0.1-1.4); BILIRUBIN-CONJUGATED 0.5 mg/dL (0.0-0.5); BILIRUBIN-UNCONJUGATED 0.4 mg/dL (0.0-1.1); CALCIUM 9.6 mg/dL (8.5-10.4); CARBON DIOXIDE 18 mEq/l (22-31); CHLORIDE 107 mEq/L (97-110); CREATININE 0.8 mg/dL (0.6-1.0); GLOMERULAR FILTRATION RATE > 60; GLUCOSE 110 mg/dL (70-100); POTASSIUM 3.7 mEq/L (3.5-5.2); SODIUM 137 mEq/L (134-144); TOTAL PROTEIN 7.9 g/dL (6.3-8.2)
[2016-12-23] MEDS ORDERED: ONDANSETRON DISINTEGRATING 4 MG TAB PO ONE (20:25)
[2016-12-23 20:30] LABS: TROPONIN I < 0.012 ng/mL (0-0.034)
[2016-12-23] MEDS ORDERED: PROMETHAZINE HCL 25 MG SUPPR PR ONE (20:33)
[2016-12-23 21:02] VITALS: RESP 16
[2016-12-23 21:38] VITALS: BP 108/72; PULSE 82; TEMP 97.9; O2SAT 96
== END 2016-12-23 21:38 | disposition home or self-care (01) ==
LOC: EDUNIT#
DX: R07.89 Other chest pain (principal)

== ENCOUNTER → 2017-01-19 | Outpatient (CLI) | payer OTHER, MEDICAID ==
--- NOTE | 2017-01-19 15:09 | CPEEG ---
[f rep st] ELECTROENCEPHALOGRAM EEG. DATE OF STUDY: 01/19/2017 DATE OF INTERPRETATION: 01/19/2017. INTERPRETATION: This EEG contains potentially epileptogenic abnormalities over the right temporal head region. These findings would be consistent with a focal seizure disorder. In addition, there is a moderate degree of focal slowing over the bitemporal head regions, maximal right. These findings would be consistent with a moderate focal disturbance of cerebral function over these regions. REPORT: This EEG contains 9-10 Hz alpha to the posterior head regions. There was a moderately severe degree of focal slowing over the bitemporal head regions , maximal right temporal. This slowing was composed of low to medium amplitude , polymorphic theta and delta activity. There was no abnormal activation at rest or with photic stimulation or hyperventilation. The patient intermittently became drowsy and fell into light sleep during the study. During drowsiness and sleep, there was activation of right temporal intermittent rhythmic delta activity (TIRDA). /[id number]/MODL MTDD
== END ==
LOC: FCPNEURO 13:02
PROVIDERS: ATTEND Psychiatry & Neurology Neurology
DX: G40.909 Epilepsy, unspecified, not intractable, without status epilepticus (principal)

== ENCOUNTER 2017-01-22 11:42 | Emergency (ER) | payer OTHER, MEDICAID ==
[2017-01-22 12:00] VITALS: TEMP 98.2
[2017-01-22] MEDS ORDERED: NS 1,000 ML IV ONE (12:42)
--- NOTE | 2017-01-22 12:48 | EDPHY ---
H & P Stated Complaint: "my right kidney hurts" has urostomy, neurogenic bladder Source: Patient, Family - Personal History LMP (Females 10-55): Unknown Current Tetanus/Diphtheria Vaccine: Unsure Current Tetanus Diphtheria and Acellular Pertussis (TDAP): Unsure - Medical/Surgical History Hx Asthma: No Hx Chronic Respiratory Disease: No Hx Diabetes: No Hx Cardiac Disease: No Hx Renal Disease: No Hx Cirrhosis: No Hx Alcoholism: No Hx HIV/AIDS: No Hx Splenectomy or Spleen Trauma: No Other PMH: Spina Bifida, neurogenic bladder. 1. History of Clostridium difficile. 2. History of CVA with resultant right-sided weakness. 3. Arnold- Chiari status post INCIDENT ANALYST shunt. 4. 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 5. History of PE not on anticoagulation. 6. Spina bifida with neurogenic bladder and urostomy. 7. Functional quadriplegia. 8. Bipolar disease. 9. Depression. 10. History of pancreatitis. 11. Hypothyroidism. The 12 status post cholecystectomy - Social History Smoking Status: Never smoked <Westley Stearns - Last Filed: 01/22/17 18:05> Exam Limitations: No limitations - Social History Alcohol Use: Sober Drug Use: None <Dominik Park - Last Filed: 01/22/17 18:53> HPI/ROS: CHIEF COMPLAINT: Abdominal pain, flank pain HISTORY OF PRESENT ILLNESS: Patient complains of 4 days history of abdominal and flank pain. This on the right side. Gradual onset, constant duration. [id number] severity. Associated with some vomiting and blood at a right urostomy site. She has history of neurogenic bladder and has had a urostomy for quite some time. She has recurrent infections from this. The abdominal pain is worse with any kind of palpation or movement. She has no left-sided pain. No trauma or injury. No fever or chills. No other associated complaints or modifying factors. PREVIOUS ABDOMINAL SURGERIES/DIAGNOSES: Neurogenic bladder status post ileal conduit urostomy REVIEW OF SYSTEMS: Ten systems reviewed and are negative unless otherwise noted in the HPI EXAMINATION: General Appearance: Alert, no distress Head: normocephalic, atraumatic Eyes: Pupils equal and round, no conjunctival pallor or injection ENT, Mouth: Mucous membranes moist. Uvula midline. Neck: Normal inspection, supple, non-tender Respiratory: Scattered rhonchi. No consolidation or diminishment. Cardiovascular: Regular rate and rhythm. No murmur. Gastrointestinal: Abdomen is soft. There is mild tenderness on the right quadrants. Mild right CVA tenderness. No rebound or guarding. Right urostomy appears normal without any bleeding or purulence. There is normal appearing urine in the urostomy bag. Neurological: Alert at baseline. Nonfocal. baseline Non ambulatory. Skin: Warm and dry, no rash. No petechiae or purpura. Extremities: Nontender, no pedal edema Psychiatric: Mood and affect normal DIFFERENTIAL DIAGNOSES: Including but not limited to urinary tract infection, pyelonephritis, renal colic, ureterolithiasis, chronic urinary tract infections, urinary colonization MDM: 12:45 p.m. Abdominal and right sided flank pain. I have evaluated this patient in the emergency department for. She is at baseline with her examination vitals. No acute abdomen at this time. I have ordered abdominal laboratory studies. After my initial examination, the patient and her significant other at bedside are requesting that they be evaluated by physician and not a PA. At this time, care will be assumed by Dr. Park. Please see his not for final care and disposition. ED Precautions: Worsening pain. Fever. Bloody stools. Bloody emesis. Constipation or diarrhea. SUPERVISION: Patient was evaluated in conjunction with the supervising physician. Please see their note for details. (Westley Stearns) Constitutional: Initial Vital Signs Temperature (C) 36.8 C 01/22/17 11:55 Heart Rate 86 01/22/17 11:55 Respiratory Rate 16 01/22/17 11:55 Blood Pressure 86/63 L 01/22/17 11:55 O2 Sat (%) 93 01/22/17 11:55 O2 Delivery Mode Room Air Allergies/Adverse Reactions: ondansetron HCl [From Zofran (as hydrochloride)] Allergy (Severe, Verified 12/17 18:21) Other-Enter Comments amoxicillin trihydrate [From Augmentin] Allergy (Verified 12/17/16 18:21) ketorolac tromethamine [From Toradol] Allergy (Verified 12/17/16 18:21) potassium clavulanate [From Augmentin] Allergy (Verified 12/17/16 18:21) tramadol Allergy (Verified 12/17/16 18:21) vancomycin Allergy (Verified 12/17/16 18:21) Home Medications: Medication Instructions Recorded ALPRAZolam [Xanax 0.25 MG (*)] 0.25 mg PO TID PRN 08/13/16 Atorvastatin Calcium [Lipitor 40 40 mg PO HS 08/13/16 mg (*)] Ergocalciferol [Vitamin D2 (*)] 50,000 unit PO FR 08/13/16 Gabapentin [Neurontin 300 MG (*)] 900 mg PO TID 08/13/16 Levothyroxine [Synthroid 50 mcg 50 mcg PO DAILY06 08/13/16 (*)] Sertraline HCl [Zoloft 50mg (*)] 50 mg PO HS 08/13/16 Topiramate [Topamax 100MG (*)] 100 mg PO HS 08/13/16 tiZANidine HCL [Zanaflex 2MG (*)] 2 mg PO BID 08/13/16 risperiDONE [Risperdal] 2 mg PO HS 08/20/16 Methenamine Delisa [Hiprex 1 gm (*)] 0.5 gm PO BID 10/29/16 Promethazine HCl [Phenergan 25mg 25 mg PO DAILY PRN 10/29/16 (*)] Acetaminophen [Tylenol 325mg (*)] 650 mg PO Q6H PRN 11/17/16 Bisacodyl [Dulcolax] 10 mg RC DAILY PRN 11/17/16 Magnesium Hydroxide [Milk of 30 ml PO DAILY PRN 11/17/16 Magnesia] Magnesium Hydroxide/Al Hydrox 30 ml PO Q6H PRN 11/17/16 [Mylanta Liquid] Nitroglycerin [Nitrostat 0.4 mg 0.4 mg SL Q5M PRN 11/17/16 (*)] Polyethylene Glycol 3350 [Miralax 17 gm PO DAILY PRN 11/17/16 17 gm (*)] Sennosides 1 - 2 tab PO Q6H PRN 11/17/16 Simethicone [Mylicon] 80 mg PO Q6H PRN 11/17/16 oxyCODONE/APAP 5/325 [Percocet 1 - 2 tab PO Q6H PRN 11/17/16 5/325 (*)] Cefepime HCl [Maxipime] 2 gm IV Q12 #0 vial 11/19/16 Cephalexin [Keflex (*)] 500 mg PO QID 10 Days 12/17/16 Cephalexin [Keflex] 500 mg PO Q6H #28 cap 01/22/17 Medical Decision Making <StearnsWestley - Last Filed: 01/22/17 18:05> <Dominik Park - Last Filed: 01/22/17 18:53> - Diagnostics Imaging Results: Imaging Impressions Abdomen/Pelvis Ultrasound 01/22/17 13:06 Impression: Chronically small lobulated, nonobstructed, right kidney. No renal source for right flank pain identified. Results discussed with Dr. Park at 2:07 PM. ED Course/Re-evaluation: 1:05 p.m. I evaluated this patient independently. Take over her care. Patient is and her are complaining of chronic right flank pain that is really unchanged from baseline. She has not had a fever. She is not tachycardic. She is slightly hypotensive, in the room she is 88/65. This is however close to her baseline according to the patient and reviewing her records. I do not think she is septic. He is I have reviewed her to most recent urine cultures. They have been positive for Pseudomonas and Staph aureus. Sensitive to everything other than Levaquin. I will start her on Keflex. I suggested the patient at some point receive a port to make IV access easier. She has been very difficult stick in the past and has already had 3 attempts here in the emergency department today. We agreed at this point not to obtain blood work or give IV fluids or medications at this point. We will obtain an ultrasound of her kidney and observe. Also her is here with concerns about her general care and specialty referrals. This seems to be his primary concern today. He states that they have been referred to several specialists and have called to make appointments but have been unable to make an appointment. I have case management speaking with them about assistance with these social issues. Maybe in coordination with [facility] they can help with the process. Also he is concerned about the amount of medications she is on and would like to have someone try and remove some of them. I have referred them back to Dr. Aguilar their primary physician for this medication management. They understand agree with this plan. 2:20 p.m. we discussed the ultrasound results. Patient is relieved. Vital signs remained stable. Her blood pressure is currently 95/70. She denies being in any pain. will continue her on Keflex. She agrees with this plan. She declines further workup or testing at this time. Case management has been discussing with them axis to the specialists and coordinating with [facility]. (Dominik Park) Differential Diagnosis: Partial list of the Differential diagnosis considered include but were not limited to; urinary tract infection, urostomy contamination, pyelonephritis, sepsis and although unlikely based on the history and physical exam, I also considered endocarditis, trauma. I discussed these differential diagnoses and the plan with the patient as well as the usual and expected course. The patient understands that the diagnosis is provisional and that in medicine we are not always correct and that further workup is often warranted. Usual and customary warnings were given. All of the patient's questions were answered. The patient was instructed to return to the emergency department should the symptoms at all worsen or return, otherwise to followup with the physician as we discussed. (Dominik Park) - Data Points Laboratory Results: 01/22/17 12:55 Urine Color ESDRAS Urine Appearance TURBID Urine pH 9.0 H (5.0-7.5) Ur Specific [place] 1.011 (1.002-1.030) Urine Protein 2+ H (NEGATIVE) Urine Ketones NEGATIVE (NEGATIVE) Urine Blood NEGATIVE (NEGATIVE) Urine Nitrate NEGATIVE (NEGATIVE) Urine Bilirubin NEGATIVE (NEGATIVE) Urine Urobilinogen NEGATIVE EU EU (0.2-1.0) Ur Leukocyte Esterase 2+ H (NEGATIVE) Urine RBC 3-5 /hpf H /hpf (0-3) Urine WBC 3-5 /hpf H /hpf (0-3) Ur Epithelial Cells TRACE /lpf /lpf (NONE-1+) Triple Phos Crystals PRESENT /hpf /hpf (NONE-1+) Urine Bacteria TRACE /hpf H /hpf (NONE SEEN) Urine Mucus TRACE /lpf /lpf (NONE-1+) Urine Glucose NEGATIVE (NEGATIVE) Medications Given: Discontinued Medications Cephalexin HCl (Keflex) 500 mg PO EDNOW ONE PRN Reason: Protocol Stop: 01/22/17 13:06 Last Admin: 01/22/17 13:10 Dose: 500 mg Sodium Chloride (Ns) 1,000 mls @ 0 mls/hr IV ONCE ONE PRN Reason: Wide Open Stop: 01/22/17 12:43 Last Admin: 01/22/17 13:07 Dose: Not Given Oxycodone/Acetaminophen (Percocet 5/325) 2 tab PO EDNOW ONE Stop: 01/22/17 13:11 Last Admin: 01/22/17 13:14 Dose: 2 tab Departure <Westley Stearns - Last Filed: 01/22/17 18:05> <Dominik Park - Last Filed: 01/22/17 18:53> - Departure Disposition: Home, Routine, Self-Care Clinical Impression: UTI (urinary tract infection) Qualifiers: Urinary tract infection type: site unspecified Hematuria presence: without hematuria Qualified Code(s): N39.0 - Urinary tract infection, site not specified Condition: Fair Instructions: Urinary Tract Infection in Women (ED) Referrals: LOIS JOHNSON [Primary Care Provider] - As per Instructions Bon Flannery MD [Medical Doctor] - As per Instructions Prescriptions: Cephalexin [Keflex] 500 mg PO Q6H #28 cap
[2017-01-22] MEDS ORDERED: CEPHALEXIN 500 MG CAP PO ONE (13:05)
[2017-01-22 13:07] LABS: COLOR AMBER; LEUKOCYTE ESTERASE,URINE 2+ (NEGATIVE); NITRITE,URINE NEGATIVE (NEGATIVE)
[2017-01-22] MEDS ORDERED: OXYCODONE/APAP 5/325 TAB PO ONE (13:10)
[2017-01-22 13:16] LABS: BACTERIA TRACE /hpf (NONE SEEN); MUCUS TRACE /lpf (NONE-1+)
[2017-01-22 14:30] VITALS: BP 92/72; PULSE 68; RESP 18; O2SAT 97
== END 2017-01-22 14:37 | disposition home or self-care (01) ==
DX: N39.0 Urinary tract infection, site not specified (principal); B95.7 Other staphylococcus as the cause of diseases classified elsewhere; B96.5 Pseudomonas (aeruginosa) (mallei) (pseudomallei) as the cause of diseases classified elsewhere; Z86.73 Personal history of transient ischemic attack (TIA), and cerebral infarction without residual deficits; Z90.49 Acquired absence of other specified parts of digestive tract

== ENCOUNTER 2017-03-11 12:51 | Emergency (ER) | payer OTHER, MEDICAID ==
--- NOTE | 2017-03-11 13:20 | EDPHY ---
H & P Time Seen by Provider: 03/11/17 12:59 HPI/ROS: Chief complaint. Sore on bottom HPI. 39-year-old female presents emergency department redness and sore on her bottom for 3 weeks. She lives at [facility] and is receiving wound care and there apparently changing the dressing 3 times daily. She feels is not getting worse but not getting better. It is somewhat irritated and tingly. No fever or vomiting. She is not taking any antibiotics for this. There was no trauma but the patient spends quite a bit of time in bed as she has spina bifida with neurogenic bladder and urostomy as well as functional quadriplegia. Patient tells me she is concerned about this as she is prone to septicemia ROS Constitutional. no fever/chills, no weakness Eyes. no problems with vision ENT. no sore throat, no nasal drainage Cardiovascular. no chest pain Respiratory. no shortness of breath, no cough Abdominal. no abdominal pain, no nausea/vomiting, no diarrhea . no problems urinating MS. no calf pain/swelling, no neck/back pain, no joint pain Skin. Redness and sore on bottom area Lymph. no swollen glands Neuro. Baseline neurologic status. Difficulty walking as the patient has spina bifida and right BKA Past Medical/Surgical History: Past medical history is significant for C difficile, CVA, Arnold-Chiari syndrome post PRODUCE ASSISTANT shunt, right BKA secondary to osteomyelitis, history of PE not on anger anticoagulation, spina bifida with neurogenic bladder and urostomy. Bipolar illness, depression, pancreatitis, hypothyroidism, cholecystectomy Social History: , nonsmoker, no alcohol Smoking Status: Never smoked Physical Exam: General Appearance: Alert well-developed female mild distress vital signs stable though initial blood pressure 98/76 Eyes: Pupils equal and round no pallor or injection. ENT, Mouth: Mucous membranes are moist. Respiratory: There are no retractions, lungs are clear to auscultation. Cardiovascular: Regular rate and rhythm. Gastrointestinal: Abdomen is soft and nontender, no masses, bowel sounds normal. Neurological: Awake and alert, sensory and motor exams grossly normal. Skin: Erythema to the mid buttock crease and right-sided buttock. There is no evidence of abscess to palpation or focal tenderness. No obvious ulceration. No lymphangitis Musculoskeletal: Neck is supple nontender. Extremities symmetrical, full range of motion. Psychiatric: Patient is oriented X 3, there is no agitation. Constitutional: Initial Vital Signs Temperature (C) 36.4 C 03/11/17 12:52 Heart Rate 82 03/11/17 12:52 Respiratory Rate 16 03/11/17 12:52 Blood Pressure 98/76 L 03/11/17 12:52 O2 Sat (%) 95 03/11/17 12:52 O2 Delivery Mode Room Air Allergies/Adverse Reactions: ondansetron HCl [From Zofran (as hydrochloride)] Allergy (Severe, Verified 03/11 12:51) Other-Enter Comments amoxicillin trihydrate [From Augmentin] Allergy (Verified 03/11/17 12:51) ketorolac tromethamine [From Toradol] Allergy (Verified 03/11/17 12:51) potassium clavulanate [From Augmentin] Allergy (Verified 03/11/17 12:51) tramadol Allergy (Verified 03/11/17 12:51) vancomycin Allergy (Verified 03/11/17 12:51) Home Medications: Medication Instructions Recorded ALPRAZolam [Xanax 0.25 MG (*)] 0.25 mg PO TID PRN 08/13/16 Atorvastatin Calcium [Lipitor 40 40 mg PO HS 08/13/16 mg (*)] Ergocalciferol [Vitamin D2 (*)] 50,000 unit PO FR 08/13/16 Gabapentin [Neurontin 300 MG (*)] 900 mg PO TID 08/13/16 Levothyroxine [Synthroid 50 mcg 50 mcg PO DAILY06 08/13/16 (*)] Sertraline HCl [Zoloft 50mg (*)] 50 mg PO HS 08/13/16 Topiramate [Topamax 100MG (*)] 100 mg PO HS 08/13/16 tiZANidine HCL [Zanaflex 2MG (*)] 2 mg PO BID 08/13/16 risperiDONE [Risperdal] 2 mg PO HS 08/20/16 Methenamine Delisa [Hiprex 1 gm (*)] 0.5 gm PO BID 10/29/16 Promethazine HCl [Phenergan 25mg 25 mg PO DAILY PRN 10/29/16 (*)] Acetaminophen [Tylenol 325mg (*)] 650 mg PO Q6H PRN 11/17/16 Bisacodyl [Dulcolax] 10 mg RC DAILY PRN 11/17/16 Magnesium Hydroxide [Milk of 30 ml PO DAILY PRN 11/17/16 Magnesia] Magnesium Hydroxide/Al Hydrox 30 ml PO Q6H PRN 11/17/16 [Mylanta Liquid] Nitroglycerin [Nitrostat 0.4 mg 0.4 mg SL Q5M PRN 11/17/16 (*)] Polyethylene Glycol 3350 [Miralax 17 gm PO DAILY PRN 11/17/16 17 gm (*)] Sennosides 1 - 2 tab PO Q6H PRN 11/17/16 Simethicone [Mylicon] 80 mg PO Q6H PRN 11/17/16 oxyCODONE/APAP 5/325 [Percocet 1 - 2 tab PO Q6H PRN 11/17/16 5/325 (*)] Cefepime HCl [Maxipime] 2 gm IV Q12 #0 vial 11/19/16 Cephalexin [Keflex (*)] 500 mg PO QID 10 Days 12/17/16 Cephalexin [Keflex] 500 mg PO Q6H #28 cap 01/22/17 Medical Decision Making Procedures: IV normal saline. Sepsis workup We will try to have wound care nurse help evaluate the patient. Dressing change ED Course/Re-evaluation: Re-evaluation 4:20 p.m.. Patient is stable. She and I discussed lab results, treatment plan including criteria for return importance of follow-up and further evaluation. We tried to get a hold of wound care nurse but were unavailable. We were trying some better barrier dressings and will send the patient back to [facility] with some extra ones so they can see what type of dressing we are using. The patient expresses understanding and agreement Differential Diagnosis: I considered skin breakdown, sepsis, ulceration, lymphangitis - Data Points Laboratory Results: Laboratory Results 03/11/17 13:55 03/11/17 13:55 03/11/17 03/11/17 03/11/17 13:55 13:55 13:55 WBC 6.23 10^3/uL 10^3/uL (3.80-9.50) RBC 4.28 10^6/uL 10^6/uL (4.18-5.33) Hgb 12.5 g/dL L g/dL (12.6-16.3) Hct 38.1 % % (38.0-47.0) MCV 89.0 fL fL (81.5-99.8) MCH 29.2 pg pg (27.9-34.1) MCHC 32.8 g/dL g/dL (32.4-36.7) RDW 13.8 % % (11.5-15.2) Plt Count 220 10^3/uL 10^3/uL (150-400) MPV 9.6 fL fL (8.7-11.7) Neut % (Auto) 61.7 % % (39.3-74.2) Lymph % (Auto) 22.0 % % (15.0-45.0) [place] % (Auto) 9.6 % % (4.5-13.0) Eos % (Auto) 5.9 % % (0.6-7.6) Baso % (Auto) 0.6 % % (0.3-1.7) Nucleat RBC Rel Count 0.0 % % (0.0-0.2) Absolute Neuts (auto) 3.84 10^3/uL 10^3/uL (1.70-6.50) Absolute Lymphs (auto) 1.37 10^3/uL 10^3/uL (1.00-3.00) Absolute Monos (auto) 0.60 10^3/uL 10^3/uL (0.30-0.80) Absolute Eos (auto) 0.37 10^3/uL 10^3/uL (0.03-0.40) Absolute Basos (auto) 0.04 10^3/uL 10^3/uL (0.02-0.10) Absolute Nucleated RBC 0.00 10^3/uL 10^3/uL (0-0.01) Immature Gran % 0.2 % % (0.0-1.1) Immature Gran # 0.01 10^3/uL 10^3/uL (0.00-0.10) VBG Lactic Acid 1.0 mmol/L mmol/L (0.7-2.1) Sodium 138 mEq/L mEq/L (134-144) Potassium 4.0 mEq/L mEq/L (3.5-5.2) Chloride 106 mEq/L mEq/L (97-110) Carbon Dioxide 18 mEq/l L mEq/l (22-31) Anion Gap 14 mEq/L mEq/L (8-16) BUN 18 mg/dL mg/dL (7-23) Creatinine 0.9 mg/dL mg/dL (0.6-1.0) Estimated GFR > 60 Glucose 96 mg/dL mg/dL (70-100) Calcium 9.6 mg/dL mg/dL (8.5-10.4) Medications Given: Discontinued Medications Ibuprofen (Motrin) 600 mg PO EDNOW ONE Stop: 03/11/17 13:22 Last Admin: 03/11/17 14:22 Dose: 600 mg Departure - Departure Disposition: Home, Routine, Self-Care Clinical Impression: Pressure sore Qualifiers: Pressure ulcer location: sacral region Pressure ulcer stage: stage 1 Qualified Code(s): L89.151 - Pressure ulcer of sacral region, stage 1 Condition: Good Instructions: Pressure Ulcer (ED) Additional Instructions: Continue wound care at [facility]. Return for fever, vomiting, worsening skin breakdown. Recheck in 2-3 days. Referrals: LOIS JOHNSON [Primary Care Provider] - 2-3 days without fail
[2017-03-11] MEDS ORDERED: IBUPROFEN 600 MG TAB PO ONE (13:21)
[2017-03-11 14:08] LABS: % IMMATURE GRANULYOCYTES 0.2 % (0.0-1.1); ABSOLUTE IMMATURE GRANULOCYTES 0.01 10^3/uL (0.00-0.10); ADD DIFF? NO; ADD MORPH? NO; ADD SCAN? YES; ATYPICAL LYMPHOCYTE FLAG 30 (0-99); FRAGMENT RBC FLAG 0 (0-99); HEMATOCRIT 38.1 % (38.0-47.0); HEMOGLOBIN 12.5 g/dL (12.6-16.3); LEFT SHIFT FLG 10 (0-99); LIPEMIA HEMOLYSIS FLAG 80 (0-99); MEAN CELL HEMOGLOBIN 29.2 pg (27.9-34.1); MEAN CELL HEMOGLOBIN CONCENTR. 32.8 g/dL (32.4-36.7); MEAN PLATELET VOLUME 9.6 fL (8.7-11.7); PLATELET COUNT 220 10^3/uL (150-400); RED BLOOD CELL COUNT 4.28 10^6/uL (4.18-5.33); RED CELL DISTRIBUTION WIDTH 13.8 % (11.5-15.2)
[2017-03-11 14:13] LABS: PLATELET CLUMPS FLAG 300 (0-99)
[2017-03-11 14:25] LABS: ANION GAP 14 mEq/L (8-16); CALCIUM 9.6 mg/dL (8.5-10.4); CARBON DIOXIDE 18 mEq/l (22-31); CHLORIDE 106 mEq/L (97-110); CREATININE 0.9 mg/dL (0.6-1.0); GLOMERULAR FILTRATION RATE > 60; GLUCOSE 96 mg/dL (70-100); SODIUM 138 mEq/L (134-144)
[2017-03-11 14:41] LABS: SCAN NEGATIVE
[2017-03-11 16:51] VITALS: O2SAT 93
[2017-03-11 17:22] VITALS: BP 94/62; PULSE 85; RESP 18; TEMP 98.2
== END 2017-03-11 17:30 | disposition home or self-care (01) ==
DX: L89.151 Pressure ulcer of sacral region, stage 1 (principal); Z86.73 Personal history of transient ischemic attack (TIA), and cerebral infarction without residual deficits

== ENCOUNTER 2018-01-21 18:23 | Observation (INO) | payer MEDICAID, OTHER ==
[2018-01-21] MEDS ORDERED: NS 500 ML IV ONE (19:09)
--- NOTE | 2018-01-21 19:13 | EDPHY ---
H & P Stated Complaint: CHEST PAIN BOTH SIDES RADIATING DOWN BOTH ARMS Time Seen by Provider: 01/21/18 18:44 - Personal History LMP (Females 10-55): Post Menopausal Current Tetanus/Diphtheria Vaccine: Unsure Current Tetanus Diphtheria and Acellular Pertussis (TDAP): Unsure - Medical/Surgical History Hx Asthma: No Hx Chronic Respiratory Disease: No Hx Diabetes: No Hx Cardiac Disease: No Hx Renal Disease: No Hx Cirrhosis: No Hx Alcoholism: No Hx HIV/AIDS: No Hx Splenectomy or Spleen Trauma: No Other PMH: Spina Bifida, neurogenic bladder, chronic pain. 1. History of Clostridium difficile. 2. History of CVA with resultant right-sided weakness. 3. Arnold-Chiari status post MUFFLER TENDER shunt. 4. 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 5. History of PE not on anticoagulation. 6. Spina bifida with neurogenic bladder and urostomy. 7. Functional quadriplegia. 8. Bipolar disease. 9. Depression. 10. History of pancreatitis. 11. Hypothyroidism. 12. status post cholecystectomy - Social History Smoking Status: Former smoker Constitutional: Initial Vital Signs Temperature (C) 37.1 C 01/21/18 18:25 Heart Rate 95 01/21/18 18:25 Respiratory Rate 16 01/21/18 18:25 Blood Pressure 100/75 01/21/18 18:25 O2 Sat (%) 100 01/21/18 18:25 O2 Delivery Mode Room Air Allergies/Adverse Reactions: ondansetron HCl [From Zofran (as hydrochloride)] Allergy (Severe, Verified 01/21 18:30) Other-Enter Comments amoxicillin trihydrate [From Augmentin] Allergy (Verified 01/21/18 18:30) ketorolac tromethamine [From Toradol] Allergy (Verified 01/21/18 18:30) potassium clavulanate [From Augmentin] Allergy (Verified 01/21/18 18:30) tramadol Allergy (Verified 01/21/18 18:30) vancomycin Allergy (Verified 01/21/18 18:30) Home Medications: Medication Instructions Recorded ALPRAZolam [Xanax 0.25 MG (*)] 0.25 mg PO TID PRN 08/13/16 Atorvastatin Calcium [Lipitor 40 40 mg PO HS 08/13/16 mg (*)] Gabapentin [Neurontin 300 MG (*)] 900 mg PO TID 08/13/16 Levothyroxine [Synthroid 50 mcg 50 mcg PO DAILY06 08/13/16 (*)] Topiramate [Topamax 100MG (*)] 100 mg PO HS 08/13/16 tiZANidine HCL [Zanaflex 2MG (*)] 4 mg PO BID 08/13/16 Methenamine Delisa [Hiprex 1 gm (*)] 0.5 gm PO BID 10/29/16 Promethazine HCl [Phenergan 25mg 25 mg PO DAILY PRN 10/29/16 (*)] Nitroglycerin [Nitrostat 0.4 mg 0.4 mg SL Q5M PRN 11/17/16 (*)] Polyethylene Glycol 3350 [Miralax 17 gm PO DAILY PRN 11/17/16 17 gm (*)] Sennosides 1 - 2 tab PO Q6H PRN 11/17/16 oxyCODONE/APAP 5/325 [Percocet 1 - 2 tab PO Q6H PRN 11/17/16 5/325 (*)] Metronidazole 500 mg PO TID 03/30/17 Sertraline HCl [Zoloft 50mg (*)] 50 mg PO DAILY 03/30/17 Medical Decision Making - Diagnostics Imaging Results: Imaging Impressions Chest X-Ray 01/21/18 19:09 Impression: 1. No active cardiopulmonary disease seen. Imaging: I viewed and interpreted images myself ED Course/Re-evaluation: CHIEF COMPLAINT: N/V/D, abdominal pain HISTORY OF PRESENT ILLNESS: The patient is a 48 y/o female with an extensive medical history complaining of chest pain, nausea, vomiting, diarrhea, and bilateral arm tingling onset 2 days ago. Her medical history includes chronic pain, CVA, pancreatitis, functional quadriplegia, C. difficile, bipolar disorder , and anxiety. She was recently released from [facility] and returned to [place], where she is from. While there, she was admitted for a UTI and upon discharge returned to [place]. For the last two days she's had up to 4 episodes daily of watery, high-volume stools with associated crampy and mild abdominal pain. Over the last 24 hours she developed constant chest pain described as a "rubber band tightening around my chest" and radiating into her neck and both arms. She cannot identify any alleviating factors. REVIEW OF SYSTEMS: A 10 point review of systems was performed and is negative with the exception of the elements mentioned in the history of present illness. PHYSICAL EXAM: HR, BP, O2 Sat, RR. Temp noted General Appearance: Alert, well hydrated, appropriate, disheveled and unkempt. Head: Atraumatic without scalp tenderness or obvious injury Eyes: Pupils equal, round, reactive to light and accommodation, EOMI, no trauma , no injection. Nose: Atraumatic, no rhinorrhea, clear. Throat: Mucus membranes moist. Neck: Supple, non-tender, no lymphadenopathy. Respiratory: No retractions, no distress, no wheezes, and no accessory muscle use. Lungs are clear to auscultation bilaterally. Cardiovascular: Regular rate and rhythm, no murmurs, rubs, or gallops. Good capillary refill all extremities. Gastrointestinal: Abdomen is soft, mild tenderness, non-distended, no masses, no rebound, no guarding, no peritoneal signs. Covered in stool. Musculoskeletal: Normal active ROM of all extremities, atraumatic. Right BKA. Neurological: Alert, appropriate, and interactive. Nonfocal. Skin: No rashes, good turgor, no nodules on palpation. PAST MEDICAL HISTORY: Chronic pain, CVA in 2010 and 2012 with right-sided weakness, osteomyelitis leading to BKA, pancreatitis, C.difficile, remote PE not on anticoagulation, spine bifida with neurogenic bladder, functional quadriplegia, depression, anxiety, Arnold-Chiari malformation, bipolar disorder , hypothyroidism, pancreatitis PAST SURGICAL HISTORY: Right BKA, MUFFLER TENDER shunt, cholecystectomy Prior medical records reviewed including admission 03/31/17 for subjective weakness. SOCIAL HISTORY: From [place], previously stayed at [facility], now transient. No alcohol. No tobacco. DIAGNOSTICS/PROCEDURES/CRITICAL CARE TIME: The 12 lead EKG was interpreted by myself. Sinus tachycardiac rate 118. See hard copy and/or "tracemaster" electronic copy for interpretation. Chest x-ray: negative DIFFERENTIAL DIAGNOSIS: The differential diagnosis for the patient's abdominal pain included but was not limited to ovarian cyst, pelvic inflammatory disease, ovarian torsion, urinary tract infection, ectopic , cholecystitis, and appendicitis. MEDICAL DECISION MAKING: This is a 48 y/o female with extensive medical history including chronic pain, functional quadriplegia, and bipolar disorder who presents with a 2-day history of N/V/D and crampy abdominal pain. She has mild abdominal tenderness on exam and is covered in stool. Plan for IV, labs, EKG, UA, stool sample. 500mL IV NS, 1mg IV Dilaudid, 12.5mg IV Phenergan ordered. UA indicates UTI. C.difficile pending. Will wait for this to determine appropriate antibiotic choice. Spoke with hospitalist service. Dr. Mario accepts admission. C.difficile is negative. IV Ceftriaxone ordered. Patient is complaining of nausea and requesting more Phenergan as well as soda. 12.5mg IV Phenergan ordered. - Data Points Laboratory Results: Laboratory Results 01/21/18 19:46 01/21/18 19:46 01/21/18 01/21/18 01/21/18 20:00 19:54 19:46 WBC RBC Hgb Hct MCV MCH MCHC RDW Plt Count MPV Neut % (Auto) Lymph % (Auto) [place] % (Auto) Eos % (Auto) Baso % (Auto) Nucleat RBC Rel Count Absolute Neuts (auto) Absolute Lymphs (auto) Absolute Monos (auto) Absolute Eos (auto) Absolute Basos (auto) Absolute Nucleated RBC Immature Gran % Immature Gran # Sodium Potassium Chloride Carbon Dioxide Anion Gap BUN Creatinine Estimated GFR Glucose Calcium Total Bilirubin Conjugated Bilirubin Unconjugated Bilirubin AST ALT Alkaline Phosphatase Troponin I Total Protein Albumin Lipase Beta HCG, Qual NEGATIVE Urine Color YELLOW Urine Appearance HAZY Urine pH 6.0 (5.0-7.5) Ur Specific [place] 1.011 (1.002-1.030) Urine Protein NEGATIVE (NEGATIVE) Urine Ketones NEGATIVE (NEGATIVE) Urine Blood 1+ H (NEGATIVE) Urine Nitrate NEGATIVE (NEGATIVE) Urine Bilirubin NEGATIVE (NEGATIVE) Urine Urobilinogen NEGATIVE EU EU (0.2-1.0) Ur Leukocyte Esterase 2+ H (NEGATIVE) Urine RBC 5-10 /hpf H /hpf (0-3) Urine WBC 15-25 /hpf H /hpf (0-3) Ur Epithelial Cells TRACE /lpf /lpf (NONE-1+) Calcium Oxalate Crystal PRESENT /hpf /hpf (NONE-1+) Urine Mucus 1+ /lpf /lpf (NONE-1+) Urine Glucose NEGATIVE (NEGATIVE) C. difficile Tox (PCR) NEGATIVE (NEGATIVE) 01/21/18 01/21/18 19:46 19:46 WBC 7.30 10^3/uL 10^3/uL (3.80-9.50) RBC 4.35 10^6/uL 10^6/uL (4.18-5.33) Hgb 12.5 g/dL L g/dL (12.6-16.3) Hct 38.8 % % (38.0-47.0) MCV 89.2 fL fL (81.5-99.8) MCH 28.7 pg pg (27.9-34.1) MCHC 32.2 g/dL L g/dL (32.4-36.7) RDW 14.6 % % (11.5-15.2) Plt Count 383 10^3/uL 10^3/uL (150-400) MPV 8.9 fL fL (8.7-11.7) Neut % (Auto) 60.8 % % (39.3-74.2) Lymph % (Auto) 25.9 % % (15.0-45.0) [place] % (Auto) 7.8 % % (4.5-13.0) Eos % (Auto) 4.5 % % (0.6-7.6) Baso % (Auto) 0.7 % % (0.3-1.7) Nucleat RBC Rel Count 0.0 % % (0.0-0.2) Absolute Neuts (auto) 4.44 10^3/uL 10^3/uL (1.70-6.50) Absolute Lymphs (auto) 1.89 10^3/uL 10^3/uL (1.00-3.00) Absolute Monos (auto) 0.57 10^3/uL 10^3/uL (0.30-0.80) Absolute Eos (auto) 0.33 10^3/uL 10^3/uL (0.03-0.40) Absolute Basos (auto) 0.05 10^3/uL 10^3/uL (0.02-0.10) Absolute Nucleated RBC 0.00 10^3/uL 10^3/uL (0-0.01) Immature Gran % 0.3 % % (0.0-1.1) Immature Gran # 0.02 10^3/uL 10^3/uL (0.00-0.10) Sodium 146 mEq/L H mEq/L (135-145) Potassium 3.2 mEq/L L mEq/L (3.5-5.2) Chloride 106 mEq/L mEq/L (97-110) Carbon Dioxide 24 mEq/l mEq/l (22-31) Anion Gap 16 mEq/L mEq/L (8-16) BUN 9 mg/dL mg/dL (7-23) Creatinine 0.9 mg/dL mg/dL (0.6-1.0) Estimated GFR > 60 Glucose 71 mg/dL mg/dL (70-100) Calcium 9.4 mg/dL mg/dL (8.5-10.4) Total Bilirubin 0.6 mg/dL mg/dL (0.1-1.4) Conjugated Bilirubin 0.5 mg/dL mg/dL (0.0-0.5) Unconjugated Bilirubin 0.1 mg/dL mg/dL (0.0-1.1) AST 23 IU/L IU/L (14-46) ALT 38 IU/L IU/L (9-52) Alkaline Phosphatase 111 IU/L IU/L (38-126) Troponin I < 0.012 ng/mL ng/mL (0.000-0.034) Total Protein 8.0 g/dL g/dL (6.3-8.2) Albumin 4.3 g/dL g/dL (3.5-5.0) Lipase 321 IU/L H IU/L (23-300) Beta HCG, Qual Urine Color Urine Appearance Urine pH Ur Specific [place] Urine Protein Urine Ketones Urine Blood Urine Nitrate Urine Bilirubin Urine Urobilinogen Ur Leukocyte Esterase Urine RBC Urine WBC Ur Epithelial Cells Calcium Oxalate Crystal Urine Mucus Urine Glucose C. difficile Tox (PCR) Medications Given: Discontinued Medications Hydromorphone HCl (Dilaudid) 1 mg IVP EDNOW ONE Stop: 01/21/18 20:20 Last Admin: 01/21/18 20:26 Dose: 1 mg Sodium Chloride (Ns) 500 mls @ 1,000 mls/hr IV EDNOW ONE PRN Reason: Protocol Stop: 01/21/18 19:38 Last Admin: 01/21/18 20:08 Dose: 500 mls Promethazine HCl (Phenergan) 12.5 mg IVP EDNOW ONE Stop: 01/21/18 20:20 Last Admin: 01/21/18 20:25 Dose: 12.5 mg Departure - Departure Disposition: [facility] Acute Clinical Impression: Nausea vomiting and diarrhea UTI (urinary tract infection) Qualifiers: Urinary tract infection type: site unspecified Hematuria presence: without hematuria Qualified Code(s): N39.0 - Urinary tract infection, site not specified Condition: Fair Referrals: NONE *PRIMARY CARE P,. [Primary Care Provider] - As per Instructions Report Scribed for: Scotty Waddell Report Scribed by: Trish Shepard Date of Report: 01/21/18 Time of Report: 19:38
[2018-01-21 19:56] LABS: PLATELET COUNT 383 10^3/uL (150-400)
[2018-01-21] MEDS ORDERED: PROMETHAZINE HCL 25 MG/ML INJ IVP ONE ×2 (20:19→21:23)
[2018-01-21] MEDS ORDERED: HYDROmorphONE/DILAUDID 2 MG/ML INJ IVP ONE (20:19)
[2018-01-21] MEDS ORDERED: HYDROmorphONE/DILAUDID 2 MG/ML INJ ONE (20:20)
[2018-01-21] MEDS ORDERED: PROMETHAZINE HCL 25 MG/ML INJ ONE (20:21)
--- NOTE | 2018-01-21 20:21 | CPEKG ---
Heart Rate: 118 RR Interval: 508 P-R Interval: 112 QRSD Interval: 90 QT Interval: 336 QTC Interval: 471 P [place]: 43 QRS [place]: 69 T Wave [place]: 9 EKG Severity - ABNORMAL ECG - EKG Impression: SINUS TACHYCARDIA EKG Impression: PROBABLE INFERIOR INFARCT, AGE INDETERMINATE Electronically Signed By: Scotty Waddell 21-Jan-2018 22:19:22
[2018-01-21] MEDS ORDERED: ACETAMINOPHEN 325 MG TAB PO PRN (22:15)
[2018-01-21] MEDS ORDERED: POTASSIUM CL 20 MEQ TAB PO ONE (22:42)
[2018-01-21] MEDS: PROMETHAZINE HCL 25 MG/ML INJ IVP PRN (22:56)
[2018-01-21] MEDS: D5W 1/2 NS W/ 20 KCl/L 1,000 ML IV SCH (23:05)
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
[2018-01-22] MEDS: PROMETHAZINE HCL 25 MG/ML INJ IVP PRN (05:24)
[2018-01-22 05:42] LABS: PLATELET COUNT 295 10^3/uL (150-400)
[2018-01-22 07:58] VITALS: BP 112/69
[2018-01-22] MEDS: D5W 1/2 NS W/ 20 KCl/L 1,000 ML IV SCH (08:28)
[2018-01-22] MEDS ORDERED: ENOXAPARIN 40 MG/0.4 ML SYR SC SCH (09:00)
[2018-01-22] MEDS ORDERED: PROMETHAZINE HCL 25 MG TAB PO PRN (09:32)
[2018-01-22] MEDS ORDERED: POLYETHYLENE GLYCOL 3350 17 GM PKT PO PRN (09:32)
[2018-01-22] MEDS ORDERED: LEVOTHYROXINE 50 MCG TAB PO SCH (09:45)
[2018-01-22] MEDS ORDERED: tiZANidine HCL 2 MG TAB PO SCH (09:45)
--- NOTE | 2018-01-22 15:08 | PDDCSUM ---
Discharge Summary Discharge Summary: Dates of service 01/21-01/22/18 Consultations/procedures: none Discharge dx: # abdominal pain # diarrhea # pyuria # n/v # homelessness # hx of CVA, seizure d/o, R BKA, MDD, PTSD, urostomy Hospital course by problem: # abdominal pain/diarrhea: all resolved, tolerating regular diet. Abdominal exam benign. Labs unremarkable. Patient requesting a PICC line and IV morphine however see no indication for this at this time # pyuria: in the setting of urostomy and clear urine, no s/s of infection, urine culture ordered and pending but regardless would not initiate abx for this at this time as this likely represents colonization # homelessness: patient states that she came here in order to be placed in a group home and will not leave until we send her to a NH. Discussed that she does not meet criteria and given that she was here on observation only and that her sxs had resolved, no indication to even keep her in the hospital. She states that she will not leave and was therefore escorted off the premises by security. # chronic medical issues: continue op management DC to home-recommending she go to homeless care home recommend she f/[facility] with [facility] > 35 min spent in dc more than half in coordination of care
[2018-01-22] MEDS ORDERED: GABAPENTIN 300 MG CAP PO SCH (16:00)
[2018-01-22] MEDS ORDERED: ALPRAZolam 0.25 MG TAB PO SCH (16:00)
[2018-01-22] MEDS ORDERED: TOPIRAMATE 100 MG TAB PO SCH (21:00)
[2018-01-22] MEDS ORDERED: ATORVASTATIN CALCIUM 40 MG TAB PO SCH (21:00)
== END 2018-01-22 13:06 | disposition home or self-care (01) ==
LOC: F3N 21:55
PROVIDERS: ADMIT Hospitalist; ATTEND Internal Medicine
DX: R10.9 Unspecified abdominal pain (principal); R19.7 Diarrhea, unspecified; R11.2 Nausea with vomiting, unspecified; R82.99 Other abnormal findings in urine; E87.6 Hypokalemia; E86.9 Volume depletion, unspecified; I69.351 Hemiplegia and hemiparesis following cerebral infarction affecting right dominant side; E03.9 Hypothyroidism, unspecified; R53.2 Functional quadriplegia; N31.9 Neuromuscular dysfunction of bladder, unspecified; G40.909 Epilepsy, unspecified, not intractable, without status epilepticus; F31.9 Bipolar disorder, unspecified; G89.29 Other chronic pain; F43.10 Post-traumatic stress disorder, unspecified; Q07.03 Arnold-Chiari syndrome with spina bifida and hydrocephalus; Z87.891 Personal history of nicotine dependence; Z86.711 Personal history of pulmonary embolism; Z98.2 Presence of cerebrospinal fluid drainage device; Z93.6 Other artificial openings of urinary tract status; Z89.511 Acquired absence of right leg below knee; Z78.0 Asymptomatic menopausal state; Z88.0 Allergy status to penicillin; Z59.0 Homelessness
CPT/HCPCS: 71046; 93005; G0378; J0696; J1170; J1650; J2270; J2550; 96365

== ENCOUNTER 2018-01-22 14:45 | Emergency (ER) | payer OTHER ==
--- NOTE | 2018-01-22 15:07 | EDPHY ---
H & P Time Seen by Provider: 01/22/18 14:56 HPI/ROS: CHIEF COMPLAINT: "I am not ready for discharge" HISTORY OF PRESENT ILLNESS: The patient is a 48-year-old female who was admitted to the hospital last evening by Dr. Waddell. Patient has a history of CVA, seizure, DKA and PTSD who presented last night with chest pain and arm pain. She was also noted to have significant diarrhea diagnosed with the urinary tract infection. The patient was admitted to the hospitalist service. Patient reports that she was discharged 1 hr ago. She states"I am not ready for discharge."She describes diffuse body pain. Her pain is primarily on the right. She denies any shortness of breath. No specific chest pain. No abdominal pain. No nausea vomiting. The patient states she had diarrhea earlier today. This is nonbloody. The patient states she is homeless and has nowhere to go. She was discharged and went to the waiting room. She then check backed into the emergency department. REVIEW OF SYSTEMS: My complete review of systems is negative except as mentioned in the HPI. Past Medical/Surgical History: Includes spina bifida, neurogenic bladder, C diff, CVA, on oral Chiari malformation with SELF PROPELLED HOT MIX ROLLER OPERATOR shunt, osteomyelitis with BKA, PE not on anticoagulation, quadriplegic, bipolar disease, depression, pancreatitis, hypothyroidism Past surgical history: Craniotomy, SELF PROPELLED HOT MIX ROLLER OPERATOR shunt, cholecystectomy, BKA, left foot surgery Social history: Patient is a former smoker. She is homeless. Smoking Status: Former smoker Physical Exam: 36.4, 101/74, 94, 18, 100% on room air GENERAL: No acute distress, alert. HEENT: Eyes normal to inspection, normal pharynx, no signs of dehydration. NECK: [No thyromegaly, no lymphadenopathy, supple. RESPIRATORY: Clear to auscultation bilaterally, no rales, rhonchi or wheezing. CVS: Regular rate and rhythm, no rubs, murmurs, or gallops. ABDOMEN: Soft, nontender. SKIN: Normal color, no rash, warm, dry. No pallor. EXTREMITIES: Right BKA. No pedal edema, no calf tenderness, no joint swelling. NEURO/PSYCH: Alert and oriented x3, flat affect. Mild right upper extremity weakness Constitutional: Initial Vital Signs Temperature (C) 36.4 C 01/22/18 14:51 Heart Rate 94 04/29/18 14:51 Respiratory Rate 18 01/22/18 14:51 Blood Pressure 101/74 01/22/18 14:51 O2 Sat (%) 100 01/22/18 14:51 O2 Delivery Mode Room Air Allergies/Adverse Reactions: ondansetron HCl [From Zofran (as hydrochloride)] Allergy (Severe, Verified 01/22 14:50) Other-Enter Comments amoxicillin trihydrate [From Augmentin] Allergy (Verified 01/22/18 14:50) ketorolac tromethamine [From Toradol] Allergy (Verified 01/22/18 14:50) potassium clavulanate [From Augmentin] Allergy (Verified 01/22/18 14:50) tramadol Allergy (Verified 01/22/18 14:50) vancomycin Allergy (Verified 01/22/18 14:50) Home Medications: Medication Instructions Recorded ALPRAZolam [Xanax 0.25 MG (*)] 0.25 mg PO TID 08/13/16 Atorvastatin Calcium [Lipitor 40 40 mg PO HS 08/13/16 mg (*)] Gabapentin [Neurontin 300 MG (*)] 900 mg PO TID 08/13/16 Levothyroxine [Synthroid 50 mcg 50 mcg PO DAILY06 08/13/16 (*)] Topiramate [Topamax 100MG (*)] 100 mg PO HS 08/13/16 tiZANidine HCL [Zanaflex 2MG (*)] 2 mg PO BID 08/13/16 Promethazine HCl [Phenergan 25mg 25 mg PO DAILY PRN 10/29/16 (*)] Nitroglycerin [Nitrostat 0.4 mg 0.4 mg SL Q5M PRN 11/17/16 (*)] Polyethylene Glycol 3350 [Miralax 17 gm PO DAILY PRN 11/17/16 17 gm (*)] Medical Decision Making ED Course/Re-evaluation: The in the emergency department I evaluated the patient. I reviewed the patient 's laboratory studies from this morning. Patient had normal white count. Patient's hematocrit is 31.7. Her lactic acid was 1.4. Patient's chemistry panel was unremarkable except for slightly high chloride I discussed the case with case management. I discussed the case with Dr. Dr. Lopez. He states he discharge the patient earlier today. He states he feels the patient is safe for discharge in she has no reason to be in the hospital. He had a police escort her off the premises. I discussed the case with Dr. Shaver who discharged the patient. Please refer to her note. It is now entered in the computer. I rechecked the patient. She was sitting comfortably in the bed comfortably. She had no focal findings on exam. I discussed the plan from Dr. Shaver. I also discussed the fact that I felt that she had no immediate need for hospitalization. When I interact with the patient she was reasonable and stated she felt fine with discharge. Differential Diagnosis: My differential includes but is not limited to urinary tract infection, diarrhea , C diff, electrolyte abnormality, sugar abnormality, bacteremia, sepsis, ACS, acute KS Departure - Departure Disposition: Home, Routine, Self-Care Clinical Impression: Nausea Condition: Good Instructions: Acute Nausea and Vomiting (ED) Additional Instructions: Return with increasing abdominal pain, chest pain or any other concerns. You need close follow-up with her primary care physician Referrals: [facility],. [Clinic] - 2-3 days, call for appt.
[2018-01-22 16:58] VITALS: BP 132/69
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
--- NOTE | 2018-01-24 10:44 | ASMTCMCOM ---
CM Note CM Note Notes: Followed up yesterday and spoke w/staff at pt's previous PCP Dr Bell Garcia's ([phone]) office; they said pt's last visit with her was 03/27/17 and they would be able to schedule her an appt on 01/30/18. This CM spoke with [facility] and she was able to get an appt yesterday afternoon at 3pm. This CM scheduled the appt in hopes pt could make it. Called pt and her , Arjun, answered and stated pt was back in a hospital in [place] after she became sick again last night. He said he was not with her at the time but they hope to get better help there. We discussed that if pt is discharged to follow up outpatient, she has the opportunity to follow-up with Dr Garcia or contact [facility]. This CM also offered to provide pt's information to [facility] but Arjun declined, stating "I don't want too many things going on at the same time, wouldn't want to put the cart before the horse." This CM explained the benefits of being connected with [facility] and strongly recommended they enroll and offered their main # but Arjun still declined at this time, "We're going to see how things go over here." This CM called PC back and canceled the 01/23 3pm appt. CM available for further assistance if needed. Date Signed: 01/24/2018 10:44 AM Electronically Signed By:Lucy Mason RN
== END 2018-01-22 16:54 | disposition home or self-care (01) ==
DX: R11.0 Nausea (principal); Z86.73 Personal history of transient ischemic attack (TIA), and cerebral infarction without residual deficits; Z87.891 Personal history of nicotine dependence

== ENCOUNTER 2018-06-05 05:37 | Inpatient (IN) | payer OTHER, MEDICAID ==
[2018-06-05] MEDS ORDERED: ACETAMINOPHEN 325 MG TAB PO ONE (06:13)
--- NOTE | 2018-06-05 06:43 | EDPHY ---
H & P Stated Complaint: n/v, kidney pain- procedure done in the last few weeks - Medical/Surgical History Hx Asthma: No Hx Chronic Respiratory Disease: No Hx Diabetes: No Hx Cardiac Disease: No Hx Renal Disease: No Hx Cirrhosis: No Hx Alcoholism: No Hx HIV/AIDS: No Hx Splenectomy or Spleen Trauma: No Other PMH: Spina Bifida, neurogenic bladder, chronic pain. 1. History of Clostridium difficile. 2. History of CVA with resultant right-sided weakness. 3. Arnold-Chiari status post STAMP CLERK shunt. 4. 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 5. History of PE not on anticoagulation. 6. Spina bifida with neurogenic bladder and urostomy. 7. Functional quadriplegia. 8. Bipolar disease. 9. Depression. 10. History of pancreatitis. 11. Hypothyroidism. 12. status post cholecystectomy - Social History Smoking Status: Former smoker Time Seen by Provider: 06/05/18 05:57 HPI/ROS: Chief Complaint: Back pain HPI: 48-year-old woman with a history of a suprapubic catheter and chronic urine colonization. She is presenting with bilateral back pain for the last 2 weeks. Patient states she did run out of her oxycodone last week. She denies any fevers or chills. Some nausea and occasional vomiting. She has not followed up with primary care physician. She has a history of multiple presentations for similar symptoms in the past. No prior visits her urinalysis has been is consistent with colonization. She is presenting today asking for pain relief. Patient's partners here with her. He is explaining the patient was just discharged from [facility] 2 days ago after an admission for intractable vomiting. She states she became hypokalemic during that visit. At time of discharge they wanted to discharge her to a longterm but the patient refused to go to that longterm because the morning reactions with that physician. They elected to leave home. He is concerned that she has continued to have intractable vomiting is not able to keep her medications down. ROS: 10 systems were reviewed and were negative except those elements noted in the HPI. Social History: She is currently homeless, chronic opioid dependence Family History: non-contributory Physical Exam: Gen: Awake, Alert, No Distress HEENT: Nose: no rhinorrhea Eyes: PERRLA, EOMI Mouth: Moist mucosa Neck: Supple, no JVD Chest: nontender, lungs clear to auscultation Heart: S1, S2 normal, no murmur Abd: Soft, non-tender, no guarding, urostomy tube in place, no erythema or discharge Back: no CVA tenderness, no midline tenderness Ext: no edema, non-tender Skin: no rash Neuro: CN II-XII intact, Sensation grossly intact, Strength 5/5 in bilateral upper extremities (Adam Saucedo) Constitutional: Initial Vital Signs Heart Rate 85 06/05/18 05:44 Respiratory Rate 20 06/05/18 05:44 Blood Pressure 122/88 H 06/05/18 05:44 O2 Sat (%) 99 06/05/18 05:44 O2 Delivery Mode Room Air Allergies/Adverse Reactions: ondansetron HCl [From Zofran (as hydrochloride)] Allergy (Severe, Verified 06/05 05:42) Other-Enter Comments amoxicillin trihydrate [From Augmentin] Allergy (Verified 06/05/18 05:42) ketorolac tromethamine [From Toradol] Allergy (Verified 06/05/18 05:42) metronidazole [From Flagyl] Allergy (Verified 06/05/18 05:42) potassium clavulanate [From Augmentin] Allergy (Verified 06/05/18 05:42) tramadol Allergy (Verified 06/05/18 05:42) vancomycin Allergy (Verified 06/05/18 05:42) Home Medications: Medication Instructions Recorded ALPRAZolam [Xanax 0.25 MG (*)] 0.25 mg PO TID 08/13/16 Atorvastatin Calcium [Lipitor 40 40 mg PO HS 08/13/16 mg (*)] Gabapentin [Neurontin 300 MG (*)] 900 mg PO TID 08/13/16 Levothyroxine [Synthroid 50 mcg 50 mcg PO DAILY06 08/13/16 (*)] Topiramate [Topamax 100MG (*)] 100 mg PO HS 08/13/16 tiZANidine HCL [Zanaflex 2MG (*)] 2 mg PO BID 08/13/16 Promethazine HCl [Phenergan 25mg 25 mg PO DAILY PRN 10/29/16 (*)] Nitroglycerin [Nitrostat 0.4 mg 0.4 mg SL Q5M PRN 11/17/16 (*)] Polyethylene Glycol 3350 [Miralax 17 gm PO DAILY PRN 11/17/16 17 gm (*)] Medical Decision Making ED Course/Re-evaluation: 48-year-old woman here with intractable vomiting. Recently discharged from [facility] 2 days ago. Patient was offered admission to a longterm at that time but the patient declined out of concerns for medical staff at that facility. She is continuing to have nausea vomiting. I have reviewed the records from [facility]. The patient indeed dropped potassium to 2 under initial presentation. This did improved to 3.5 on discharge. Patient is continuing to fail to thrive as an outpatient. Will check laboratory evaluations here. I anticipate she will likely require readmission for symptom control. Patient signed out to Dr. Levi pending laboratory results. (Adam Saucedo) Other Provider: Care assumed at 7:15 a.m., evaluation in progress, plan is to start IV draw labs collected urine and then further plan based on those results. Temperature documented as 36.3. 818: Labs reviewed including normal potassium of 3.6, but significantly decreased bicarbonate of 16. Phenergan 12.5 mg IV given for nausea in the emergency department. Examined at this time, still has significant nausea and vomiting, admission for IV fluids supportive care and significant dehydration with intractable vomiting. 837: Discussed with Tianna Borges for Dr. Tania Shaikh (Fernando Levi) - Data Points Laboratory Results: Laboratory Results 06/05/18 07:40 06/05/18 07:40 06/05/18 06/05/18 07:40 07:40 WBC 4.76 10^3/uL 10^3/uL (3.80-9.50) RBC 4.16 10^6/uL L 10^6/uL (4.18-5.33) Hgb 12.0 g/dL L g/dL (12.6-16.3) Hct 36.2 % L % (38.0-47.0) MCV 87.0 fL fL (81.5-99.8) MCH 28.8 pg pg (27.9-34.1) MCHC 33.1 g/dL g/dL (32.4-36.7) RDW 13.9 % % (11.5-15.2) Plt Count 305 10^3/uL 10^3/uL (150-400) MPV 9.0 fL fL (8.7-11.7) Neut % (Auto) 78.4 % H % (39.3-74.2) Lymph % (Auto) 16.4 % % (15.0-45.0) [place] % (Auto) 3.8 % L % (4.5-13.0) Eos % (Auto) 0.6 % % (0.6-7.6) Baso % (Auto) 0.6 % % (0.3-1.7) Nucleat RBC Rel Count 0.0 % % (0.0-0.2) Absolute Neuts (auto) 3.73 10^3/uL 10^3/uL (1.70-6.50) Absolute Lymphs (auto) 0.78 10^3/uL L 10^3/uL (1.00-3.00) Absolute Monos (auto) 0.18 10^3/uL L 10^3/uL (0.30-0.80) Absolute Eos (auto) 0.03 10^3/uL 10^3/uL (0.03-0.40) Absolute Basos (auto) 0.03 10^3/uL 10^3/uL (0.02-0.10) Absolute Nucleated RBC 0.00 10^3/uL 10^3/uL (0-0.01) Immature Gran % 0.2 % % (0.0-1.1) Immature Gran # 0.01 10^3/uL 10^3/uL (0.00-0.10) Sodium 143 mEq/L mEq/L (135-145) Potassium 3.6 mEq/L mEq/L (3.3-5.0) Chloride 115 mEq/L H mEq/L (97-110) Carbon Dioxide 16 mEq/l L mEq/l (22-31) Anion Gap 12 mEq/L mEq/L (8-16) BUN 15 mg/dL mg/dL (7-23) Creatinine 0.8 mg/dL mg/dL (0.6-1.0) Estimated GFR > 60 Glucose 197 mg/dL H mg/dL (70-100) Calcium 9.9 mg/dL mg/dL (8.5-10.4) Medications Given: Discontinued Medications Acetaminophen (Tylenol) 650 mg PO EDNOW ONE Stop: 06/05/18 06:14 Last Admin: 06/05/18 06:29 Dose: 650 mg Promethazine HCl (Phenergan) 12.5 mg IVP ONCE ONE Stop: 06/05/18 07:46 Last Admin: 06/05/18 07:51 Dose: 12.5 mg Departure - Departure Disposition: [facility]patient Acute Clinical Impression: Dehydration Nausea and vomiting Qualifiers: Vomiting type: unspecified Vomiting Intractability: intractable Qualified Code( s): R11.2 - Nausea with vomiting, unspecified Condition: Good Referrals: Bell Garcia MD [Primary Care Provider] - As per Instructions
[2018-06-05] MEDS ORDERED: PROMETHAZINE HCL 25 MG/ML INJ IVP ONE (07:45)
[2018-06-05 07:49] LABS: PLATELET COUNT 305 10^3/uL (150-400)
[2018-06-05] MEDS ORDERED: ACETAMINOPHEN 325 MG TAB PO PRN (11:35)
[2018-06-05] MEDS: PROMETHAZINE HCL 25 MG/ML INJ IVP PRN ×3 (13:41→21:17)
[2018-06-05] MEDS ORDERED: IBUPROFEN 600 MG TAB PO PRN (15:00)
[2018-06-05] MEDS: NS 1,000 ML IV SCH (15:29)
[2018-06-05] MEDS ORDERED: IOPAMIDOL (ISOVUE-300) 100 ML BTL ONE (15:39)
--- NOTE | 2018-06-05 15:44 | GHP ---
DATE OF ADMISSION: 06/05/2018 CHIEF COMPLAINT: Nausea, vomiting with right flank pain. HISTORY: The patient is a 48-year-old female with a history of spina bifida status post UNIT AIDE TECH shunt and multiple congenital neurologic deficits now presenting to the hospital with severe right flank pain with intractable nausea and vomiting. She was hospitalized at [facility] in March for a 3-week stay for kidney stones requiring a nephrostomy tube. According to her and her , at the time that the nephrostomy tube was taken out, there was a medical error regarding its removal and she immediately got 10/10 pain and has had persistent severe pain in her right flank since that time. She was also recently hospitalized at [facility] and just discharged 2 days ago. During that hos pitalization, she was being treated for intractable nausea and vomiting. Nausea and vomiting resolve d with IV Phenergan, but as soon as that medicine is stopped, she vomits intractably again. Her vomi ting started again at 5 o'clock this morning. She is now presenting to [facility]. She also has profuse diarrhea and has already had 4 episodes of diarrhea since arrival to the floor. There were some comment in the ER about her running out of oxycodone as being part of her presentati on, but they did not ask for any narcotics during my interview with them. PAST MEDICAL HISTORY: 1. Spina bifida, status post UNIT AIDE TECH shunt. 2. Arnold-Chiari malformation. 3. Neurogenic bladder status post urostomy. 4. Functional quadriplegia. 5. Bipolar. 6. History of pulmonary embolus. 7. Right BKA secondary to osteomyelitis. PAST SURGICAL HISTORY: Cholecystectomy. MEDICATIONS: Please see computer record for full detailed list. ALLERGIES: Zofran, Toradol, tramadol, amoxicillin, vancomycin, and Flagyl. SOCIAL HISTORY: No smoking. No alcohol. She is currently homeless here with her . They are originally from [place]. They plan to travel back to [place] whether their family is as soon as she is medically stable. REVIEW OF SYSTEMS: Complete review of systems obtained. Review of systems negative regarding consti tutional, HEENT, GI, pulmonary, cardiovascular, , hematology, skin, muscle, endocrine, psych, excep t for positives and negatives as in HPI. FAMILY HISTORY: Reviewed, noncontributory to the presenting complaint. PHYSICAL EXAMINATION: GENERAL: Well-developed, well-nourished female, in no acute distress, althoug h she is profusely vomiting throughout the history and physical. VITAL SIGNS: Temperature is 36.7, pulse 106, blood pressure 124/87, saturating 98% on room air. EYES: Normal conjunctivae. Pupils re act to light. ENT: Normal ears and nose. Hearing intact. Normal lips, teeth. Oropharynx moist. NECK: Trachea midline. No thyromegaly. CHEST: Normal respiratory effort. LUNGS: Clear to auscul tation bilaterally. CARDIOVASCULAR: Regular rhythm. No murmur. No extremity edema. ABDOMEN: Sof t. Diffuse tenderness to palpation, but without rebound or guarding. No hepatosplenomegaly. SKIN: Warm, dry, intact without rash. MUSCULOSKELETAL: No cyanosis or clubbing. She is moving all extre mities in the bed. PSYCH: Her mental status is awake and alert. She is quite a good historian, hel ping her to give the story, sometimes getting agitated with him that he was getting it wrong. Seems fairly mentally intact, cooperative, good memory. LABORATORY DATA: White count 4.76, hematocrit 36.2, platelets 305. Sodium 143, potassium 3.6, chlor carmen 115, bicarb 16, BUN 15, creatinine 0.8, glucose 197. MEDICAL RECORDS REVIEW: She has been hospitalized here multiple times, although they tell me they huston ve only been here from [place] for a couple of months. We have records from [facility] going back to 2016. S he was previously living at [facility]. ASSESSMENT/PLAN: 1. Severe right flank pain status post recent treatment for kidney stones with nephrostomy tubes rec ently being removed. Will check a CT scan of the abdomen and pelvis for further evaluation. 2. Severe diarrhea. Four bowel movements since arrival to the floor. Will check for Clostridium di fficile. 3. Neurogenic bladder status post urostomy. Will avoid culturing the urine as she is chronically co ntaminated and always grows multiple organisms. 4. Spina bifida status post ventriculoperitoneal shunt. She appears quite functional despite this. 5. Right below-knee amputation secondary to osteomyelitis. This is well healed. CODE STATUS: Full. ADMISSION STATUS: Will admit to observation. Will re-evaluate tomorrow regarding ongoing need for h ospitalization. DVT PROPHYLAXIS: She is high risk. Will place on subcu Lovenox. /[id number]/MODL
[2018-06-05] MEDS: GABAPENTIN 300 MG CAP PO SCH (23:45)
[2018-06-05] MEDS: ATORVASTATIN CALCIUM 40 MG TAB PO SCH (23:45)
[2018-06-06] MEDS: NS 1,000 ML IV SCH ×2 (02:16→21:31)
[2018-06-06] MEDS: PROMETHAZINE HCL 25 MG/ML INJ IVP PRN ×2 (03:02→09:06)
[2018-06-06] MEDS: VENLAFAXINE XR 75 MG CAP PO SCH (09:10)
[2018-06-06] MEDS: LEVOTHYROXINE 100 MCG TAB PO SCH (09:10)
[2018-06-06] MEDS: GABAPENTIN 300 MG CAP PO SCH ×3 (09:10→21:31)
[2018-06-06] MEDS: LIDOCAINE 4%/MENTHOL 1% PATCH TD SCH (09:11)
[2018-06-06] MEDS: ENOXAPARIN 40 MG/0.4 ML SYR SC SCH (09:13)
--- NOTE | 2018-06-06 13:02 | ASMTCASEMG ---
Living Arrangements What is your living Answers: With Spouse arrangement? Who do you live with? Type Of Residence What kind of residence do Answers: House you live in? Discharge Plan Comments Coordination Status Comments Notes: Pt is a 48 y/o female admitted for dehydration. Therapies have been ordered and awaiting recommendations. Needs are TBD at this time. CM to follow. Plan: TBD Date Signed: 06/06/2018 01:00 PM Electronically Signed By:МАРИНА Arauz
[2018-06-06] MEDS ORDERED: METOCLOPRAMIDE 10 MG/2 ML VIAL IVP PRN (15:24)
[2018-06-06] MEDS: BACLOFEN 10 MG TAB PO SCH ×2 (15:29→21:31)
[2018-06-06] MEDS: PROMETHAZINE HCL 25 MG TAB PO PRN (15:29)
--- NOTE | 2018-06-06 17:08 | ASMTCMCOM ---
CM Note CM Note Notes: CM spoke to Dr. Shaikh regarding d/c POC. CM met w/ pt and family for dispo planning. Pt and family are requesting for a SNF. Pt previously lived at [facility] before moving to [place]. Pt and family would like referrals made to [facility], [facility] and [facility]. Referrals sent. CM completed triggered pasrr and faxed it to Nirav Arzate. CM to follow. Plan: SNF Date Signed: 06/06/2018 05:08 PM Electronically Signed By:МАРИНА Arauz
[2018-06-06] MEDS: LORazepam 2 MG/ML INJ IVP PRN (17:36)
[2018-06-06] MEDS: DRONABINOL 2.5 MG CAP PO SCH (17:41)
--- NOTE | 2018-06-06 18:18 | HOSPPROG ---
Hospitalist Progress Note Assessment/Plan: * Intractable N/V/D -continue supportive care for suspected gastroenteritis -CT abd/pelvis negative, Cdiff ruled out * Spina bifida s/p PUBLIC INTERVIEWER shunt * Right flank pain -CT negative -? pyelo with profuse N/V - difficult to diagnose with chronic urine colonization -hold antibiotics - but could consider if fails to improve or has fever * Neurogenic bladder s/p urostomy * Right BKA due to osteomyelitis Subjective: Still profuse N/V/D - unable to tolerate PO Objective: Vital Signs Temp Pulse Resp BP Pulse Ox 36.2 C 105 H 18 145/94 H 100 06/06/18 15:41 06/06/18 15:41 06/06/18 15:41 06/06/18 15:41 06/06/18 15:41 Microbiology 06/05/18 15:20 Gastrointestinal Tract Panel (PCR) - Final Stool No Organism Detected Laboratory Results 06/06/18 08:12 06/05/18 06/06/18 06/07/18 05:59 05:59 05:59 Intake Total 250 Output Total 1700 525 Balance -1450 -525 - Physical Exam Constitutional: no apparent distress, appears nourished, not in pain Cardiovascular: regular rate and rhythym, no murmur, rub, or gallop Respiratory: no respiratory distress, no rales or rhonchi, clear to auscultation Gastrointestinal: normoactive bowel sounds, soft, non-tender abdomen, no palpable masses Skin: no rashes or abrasions, no fluctuance, no induration Neurologic: AAOx3, sensation intact bilaterally Psychiatric: interacting appropriately, not anxious, not encephalopathic, thought process linear ICD10 Worksheet Patient Problems: Problems Problem Status Onset Dehydration Acute Nausea and vomiting Acute Acute pyelonephritis Acute Chronic chest pain Acute Nausea Acute Nausea vomiting and diarrhea Acute Neurological deficit present Acute Pyelonephritis Acute UTI (urinary tract infection) Acute Upper abdominal pain Acute
[2018-06-06] MEDS: ATORVASTATIN CALCIUM 40 MG TAB PO SCH (21:31)
[2018-06-06] MEDS: TOPIRAMATE 25 MG TAB PO SCH (21:31)
[2018-06-06] MEDS: PATCH REMOVAL 1 EA PATCH TD SCH (21:40)
[2018-06-07] MEDS: TOPIRAMATE 25 MG TAB PO SCH ×2 (08:06→21:17)
[2018-06-07] MEDS: LIDOCAINE 4%/MENTHOL 1% PATCH TD SCH (08:06)
[2018-06-07] MEDS: PANTOPRAZOLE SODIUM 40 MG TAB PO SCH (08:07)
[2018-06-07] MEDS: LEVOTHYROXINE 100 MCG TAB PO SCH (08:07)
[2018-06-07] MEDS: DRONABINOL 2.5 MG CAP PO SCH ×2 (08:07→17:02)
[2018-06-07] MEDS: ENOXAPARIN 40 MG/0.4 ML SYR SC SCH (08:07)
[2018-06-07] MEDS: POTASSIUM CL 20 MEQ TAB PO SCH (08:07)
[2018-06-07] MEDS: VENLAFAXINE XR 75 MG CAP PO SCH (08:07)
[2018-06-07] MEDS: GABAPENTIN 300 MG CAP PO SCH ×3 (08:07→21:17)
[2018-06-07] MEDS: ASPIRIN EC 81 MG TAB PO SCH (08:07)
[2018-06-07] MEDS: BACLOFEN 10 MG TAB PO SCH ×3 (08:07→21:17)
[2018-06-07] MEDS: PROMETHAZINE HCL 25 MG TAB PO PRN ×2 (08:18→17:02)
[2018-06-07] MEDS: LORazepam 2 MG/ML INJ IVP PRN (08:55)
--- NOTE | 2018-06-07 14:28 | HOSPPROG ---
Hospitalist Progress Note Assessment/Plan: * Intractable N/V/D -continue supportive care for suspected gastroenteritis -CT abd/pelvis negative, Cdiff ruled out -still no better - check head CT -consider GI consult if fails to improve * Spina bifida s/p PAPER CONE DRYING MACHINE OPERATOR shunt * Right flank pain -CT negative -? pyelo with profuse N/V - difficult to diagnose with chronic urine colonization -hold antibiotics - but could consider if fails to improve or has fever/ leukocytosis * Neurogenic bladder s/p urostomy * Right BKA due to osteomyelitis Subjective: Still vomitting all morning, less diarrhea Objective: Vital Signs Temp Pulse Resp BP Pulse Ox 36.4 C 99 18 135/92 H 99 06/07/18 08:23 06/07/18 08:23 06/07/18 08:23 06/07/18 08:23 06/07/18 08:23 Laboratory Results 06/06/18 08:12 06/06/18 06/07/18 06/08/18 05:59 05:59 05:59 Intake Total 250 2160 Output Total 2008 114 0866 Balance -1450 1435 -1150 - Physical Exam Constitutional: no apparent distress, appears nourished, not in pain Cardiovascular: regular rate and rhythym, no murmur, rub, or gallop Respiratory: no respiratory distress, no rales or rhonchi, clear to auscultation Gastrointestinal: normoactive bowel sounds, soft, non-tender abdomen, no palpable masses Skin: no rashes or abrasions, no fluctuance, no induration Neurologic: AAOx3, sensation intact bilaterally Psychiatric: interacting appropriately, not anxious, not encephalopathic, poor insight, No agitated ICD10 Worksheet Patient Problems: Problems Problem Status Onset Dehydration Acute Nausea and vomiting Acute Acute pyelonephritis Acute Chronic chest pain Acute Nausea Acute Nausea vomiting and diarrhea Acute Neurological deficit present Acute Pyelonephritis Acute UTI (urinary tract infection) Acute Upper abdominal pain Acute
[2018-06-07] MEDS: NS 1,000 ML IV SCH (17:03)
--- NOTE | 2018-06-07 19:34 | PDMN ---
Medical Necessity Medical necessity: Change to IP, as of 06/06/18, per MD; los >2 mn for ongoing management of intractable N/V/D with R flank pain & inability to tolerate PO; requiring supportive care, IVFs & IV antiemetics; hx spina bifida a/p CLINICAL TRAINER shunt, neurogenic bladder s/p urostomy, R BKA r/t osteomyelitis
[2018-06-07] MEDS: ATORVASTATIN CALCIUM 40 MG TAB PO SCH (21:17)
[2018-06-07] MEDS: PATCH REMOVAL 1 EA PATCH TD SCH (23:56)
[2018-06-08] MEDS: NS 1,000 ML IV SCH (02:50)
[2018-06-08] MEDS: LIDOCAINE 4%/MENTHOL 1% PATCH TD SCH (08:05)
[2018-06-08] MEDS: ENOXAPARIN 40 MG/0.4 ML SYR SC SCH (08:05)
[2018-06-08] MEDS: BACLOFEN 10 MG TAB PO SCH ×3 (08:06→20:40)
[2018-06-08] MEDS: POTASSIUM CL 20 MEQ TAB PO SCH (08:06)
[2018-06-08] MEDS: DRONABINOL 2.5 MG CAP PO SCH ×2 (08:06→20:40)
[2018-06-08] MEDS: PANTOPRAZOLE SODIUM 40 MG TAB PO SCH (08:06)
[2018-06-08] MEDS: ASPIRIN EC 81 MG TAB PO SCH (08:06)
[2018-06-08] MEDS: GABAPENTIN 300 MG CAP PO SCH ×3 (08:06→20:40)
[2018-06-08] MEDS: TOPIRAMATE 25 MG TAB PO SCH (08:06)
[2018-06-08] MEDS: VENLAFAXINE XR 75 MG CAP PO SCH (08:06)
[2018-06-08] MEDS: LEVOTHYROXINE 100 MCG TAB PO SCH (08:07)
--- NOTE | 2018-06-08 11:59 | HOSPPROG ---
Hospitalist Progress Note Assessment/Plan: * Intractable N/V/D -continue supportive care for suspected gastroenteritis -CT abd/pelvis negative, Cdiff ruled out -consider GI consult if fails to improve * Spina bifida s/p JOINTER OPERATOR shunt * Right flank pain -CT negative -? pyelo with profuse N/V - difficult to diagnose with chronic urine colonization -hold antibiotics - but could consider if fails to improve or has fever/ leukocytosis * Neurogenic bladder s/p urostomy * Right BKA due to osteomyelitis Plan: doing better with supportive care no further flank pain, afebrile ok to do trial off IVF today Subjective: gettin better. no emesis. only 1 BM today. Objective: Vital Signs Temp Pulse Resp BP Pulse Ox 36.9 C 89 14 102/66 95 06/08/18 07:33 06/08/18 07:33 06/08/18 07:33 06/08/18 07:33 06/08/18 07:33 06/07/18 06/08/18 06/09/18 05:59 05:59 05:59 Intake Total 1150 200 666 Output Total 200 2725 400 Balance 950 -2525 266 - Physical Exam Constitutional: no apparent distress Eyes: PERRL Ears, Nose, Mouth, Throat: moist mucous membranes, hearing normal Cardiovascular: regular rate and rhythym, No edema Respiratory: no respiratory distress, no rales or rhonchi, clear to auscultation Gastrointestinal: normoactive bowel sounds Skin: warm Neurologic: AAOx3 Psychiatric: interacting appropriately, not anxious, not encephalopathic ICD10 Worksheet Patient Problems: Problems Problem Status Onset Dehydration Acute Nausea and vomiting Acute Acute pyelonephritis Acute Chronic chest pain Acute Nausea Acute Nausea vomiting and diarrhea Acute Neurological deficit present Acute Pyelonephritis Acute UTI (urinary tract infection) Acute Upper abdominal pain Acute
[2018-06-08 12:03] LABS: PLATELET COUNT 253 10^3/uL (150-400)
[2018-06-08] MEDS: PROMETHAZINE HCL 25 MG TAB PO PRN (12:48)
[2018-06-08] MEDS: TOPIRAMATE 100 MG TAB PO SCH (20:40)
[2018-06-08] MEDS: ATORVASTATIN CALCIUM 40 MG TAB PO SCH (20:40)
[2018-06-08] MEDS: PATCH REMOVAL 1 EA PATCH TD SCH (20:43)
[2018-06-09] MEDS: BACLOFEN 10 MG TAB PO SCH ×3 (08:11→21:48)
[2018-06-09] MEDS: DRONABINOL 2.5 MG CAP PO SCH ×2 (08:11→20:13)
[2018-06-09] MEDS: ASPIRIN EC 81 MG TAB PO SCH (08:11)
[2018-06-09] MEDS: PANTOPRAZOLE SODIUM 40 MG TAB PO SCH (08:11)
[2018-06-09] MEDS: ENOXAPARIN 40 MG/0.4 ML SYR SC SCH (08:12)
[2018-06-09] MEDS: LIDOCAINE 4%/MENTHOL 1% PATCH TD SCH (08:13)
[2018-06-09] MEDS: GABAPENTIN 300 MG CAP PO SCH ×3 (08:13→21:48)
[2018-06-09] MEDS: POTASSIUM CL 20 MEQ TAB PO SCH (08:14)
[2018-06-09] MEDS: TOPIRAMATE 100 MG TAB PO SCH ×2 (08:14→20:13)
[2018-06-09] MEDS: VENLAFAXINE XR 75 MG CAP PO SCH (08:14)
[2018-06-09] MEDS: oxyCODONE IR 5 MG TAB PO PRN (08:35)
[2018-06-09] MEDS: LEVOTHYROXINE 100 MCG TAB PO SCH (09:41)
[2018-06-09] MEDS ORDERED: PROTOCOL POTASSIUM 1 DOSE MISC PRN (10:33)
[2018-06-09] MEDS ORDERED: PROTOCOL MAGNESIUM 1 DOSE IV PRN (10:33)
--- NOTE | 2018-06-09 11:49 | HOSPPROG ---
Hospitalist Progress Note Assessment/Plan: * Dehydration, resolved, no need for further IVF * Intractable N/V/D -continue supportive care for suspected gastroenteritis -CT abd/pelvis negative, Cdiff ruled out * Spina bifida s/p MERCHANDISE DELIVERER shunt * Right flank pain, much improved -CT negative -? pyelo with profuse N/V - difficult to diagnose with chronic urine colonization -hold antibiotics - but could consider if fails to improve or has fever/ leukocytosis * Neurogenic bladder s/p urostomy * Right BKA due to osteomyelitis *Hypokalemia, replacing per protocol, K level pending *Generalized Weakness: PT/OT Plan: significantly better. Will need SNF. CM to arrange Subjective: feels better. K level is pending. no nausea or emesis. some confusion earlier but fully cleared now. Objective: Vital Signs Temp Pulse Resp BP Pulse Ox 36.6 C 98 16 100/74 95 06/08/18 16:00 06/08/18 16:00 06/08/18 16:00 06/08/18 16:00 06/08/18 16:00 Laboratory Results 06/08/18 11:27 06/08/18 06/09/18 06/10/18 05:59 05:59 05:59 Intake Total 200 1554 Output Total 3489 4149 Balance -7968 -3976 - Physical Exam Constitutional: no apparent distress Eyes: PERRL, EOMI Ears, Nose, Mouth, Throat: moist mucous membranes, hearing normal Cardiovascular: regular rate and rhythym Respiratory: no respiratory distress, no rales or rhonchi Gastrointestinal: normoactive bowel sounds Skin: warm Musculoskeletal: generalized weakness Neurologic: AAOx3 Psychiatric: interacting appropriately, not anxious, not encephalopathic Lymph, Heme, Immunologic: No petechiae ICD10 Worksheet Patient Problems: Problems Problem Status Onset Dehydration Acute Nausea and vomiting Acute Acute pyelonephritis Acute Chronic chest pain Acute Nausea Acute Nausea vomiting and diarrhea Acute Neurological deficit present Acute Pyelonephritis Acute UTI (urinary tract infection) Acute Upper abdominal pain Acute
--- NOTE | 2018-06-09 15:53 | ASMTCMCOM ---
CM Note CM Note Notes: Spoke w/pt and re; dc poc. Barrett from [facility] here, still reviewing pt. Unsure if they will accept pt b/c the last time she was there was under her Medicaid and she left after 2 weeks. CM checked with Kathy in [facility], she says pt has Medicare A+B and Medicaid. Triggered pasrr fax attached and sent to [facility] Plan: SNF Date Signed: 06/09/2018 03:48 PM Electronically Signed By:Jeanna Mei RN
[2018-06-09] MEDS: ATORVASTATIN CALCIUM 40 MG TAB PO SCH (20:13)
[2018-06-09] MEDS: PATCH REMOVAL 1 EA PATCH TD SCH (20:25)
[2018-06-09] MEDS ORDERED: POTASSIUM CL 10 MEQ TAB PO ONE (21:15)
[2018-06-10] MEDS ORDERED: POTASSIUM CL 10 MEQ TAB PO ONE (07:34)
[2018-06-10] MEDS ORDERED: MAGNESIUM SULF 1 GM/DEXTROSE 100 ML IV ONE (07:35)
[2018-06-10] MEDS: BACLOFEN 10 MG TAB PO SCH ×3 (08:08→22:12)
[2018-06-10] MEDS: DRONABINOL 2.5 MG CAP PO SCH ×2 (08:11→20:08)
[2018-06-10] MEDS: TOPIRAMATE 100 MG TAB PO SCH ×2 (08:11→20:08)
[2018-06-10] MEDS: GABAPENTIN 300 MG CAP PO SCH ×3 (08:11→22:11)
[2018-06-10] MEDS: VENLAFAXINE XR 75 MG CAP PO SCH (08:12)
[2018-06-10] MEDS: LEVOTHYROXINE 100 MCG TAB PO SCH (08:13)
[2018-06-10] MEDS: PANTOPRAZOLE SODIUM 40 MG TAB PO SCH (08:13)
[2018-06-10] MEDS: ASPIRIN EC 81 MG TAB PO SCH (08:13)
[2018-06-10] MEDS: LIDOCAINE 4%/MENTHOL 1% PATCH TD SCH (08:22)
[2018-06-10] MEDS: ENOXAPARIN 40 MG/0.4 ML SYR SC SCH (08:24)
[2018-06-10] MEDS: POTASSIUM CL 20 MEQ TAB PO SCH (10:25)
--- NOTE | 2018-06-10 13:50 | HOSPPROG ---
Hospitalist Progress Note Assessment/Plan: * Dehydration, resolved, no need for further IVF * Intractable N/V/D -continue supportive care for suspected gastroenteritis -CT abd/pelvis negative, Cdiff ruled out * Spina bifida s/p TECHNICAL SUPPORT ASSISTANT shunt * Right flank pain, much improved -CT negative -? pyelo with profuse N/V - difficult to diagnose with chronic urine colonization -hold antibiotics - but could consider if fails to improve or has fever/ leukocytosis * Neurogenic bladder s/p urostomy * Right BKA due to osteomyelitis *Hypokalemia, replacing per protocol, K level pending *Generalized Weakness: PT/OT Plan: significantly better. Will need SNF. CM to arrange. Awaiting placement. Subjective: no new complaints Objective: Vital Signs Temp Pulse Resp BP Pulse Ox 36.6 C 96 14 99/70 L 97 06/10/18 07:59 06/10/18 07:59 06/10/18 07:59 06/10/18 07:59 06/10/18 07:59 Laboratory Results 06/08/18 11:27 06/10/18 05:22 06/09/18 06/10/18 06/11/18 05:59 05:59 05:59 Intake Total 1554 1280 Output Total 3375 2350 Balance -1821 -1070 - Physical Exam Constitutional: no apparent distress Eyes: PERRL Ears, Nose, Mouth, Throat: moist mucous membranes, hearing normal Cardiovascular: regular rate and rhythym, No edema Gastrointestinal: normoactive bowel sounds Skin: warm Musculoskeletal: generalized weakness Neurologic: AAOx3 Psychiatric: interacting appropriately Lymph, Heme, Immunologic: No petechiae ICD10 Worksheet Patient Problems: Problems Problem Status Onset Dehydration Acute Nausea and vomiting Acute Acute pyelonephritis Acute Chronic chest pain Acute Nausea Acute Nausea vomiting and diarrhea Acute Neurological deficit present Acute Pyelonephritis Acute UTI (urinary tract infection) Acute Upper abdominal pain Acute
--- NOTE | 2018-06-10 16:29 | ASMTCMCOM ---
CM Note CM Note Notes: Spoke with provider, pt and today. Pt is medically ready for discharge any day pending placement. Pt and amenable to any facility in the [facility] area preferably with LTC possibility. Barrett at [facility] is having her case reviewed and will have an answer on Tuesday. She has hx of leaving [facility] AMA while still on Medicaid, but now she is also on Medicare Part A and B. Several other referrals were sent today, but no acceptance yet. Messages left for [facility]. D/C Plan: SNF pending acceptance in facility with LTC as well Date Signed: 06/10/2018 04:29 PM Electronically Signed By:Teresa Campos
[2018-06-10] MEDS: ATORVASTATIN CALCIUM 40 MG TAB PO SCH (20:08)
[2018-06-10] MEDS: PATCH REMOVAL 1 EA PATCH TD SCH (20:11)
[2018-06-10] MEDS ORDERED: POTASSIUM CL 20 MEQ TAB PO ONE (21:36)
[2018-06-10] MEDS: oxyCODONE IR 5 MG TAB PO PRN (22:11)
--- NOTE | 2018-06-11 01:51 | HOSPPROG ---
Hospitalist Progress Note Assessment/Plan: Hospitalist Night Float Note Notified by RN regarding patient c/o of sudden onset right sided numbness/ tingling and facial drooping. Patient reports history of multiple CVA. hx of spina bifida s/p DIGITAL COMMUNICATIONS MANAGER shunt. patient admitted with nausea/vomiting 2/2 gastroenteritis and electrolyte depletion on replacement. VS reviewed. Gen - NAD. patient lays quietly in bed. appears older than stated age. CV - RRR. no m/r/g. Resp - CTA-b Abd - soft. obese. nttp. Neuro - patient speech slightly dysarthric. missing dentition. right facial drooping with cranial nerve testing . no arm drift. Psych - calm. AAOx3. STAT CT Head ordered. will discuss with neurology. on daily ASA and received ppx lovenox not on anticoagulation. Objective: Vital Signs Temp Pulse Resp BP Pulse Ox 36.8 C 108 H 14 98/73 L 99 06/10/18 21:46 06/10/18 21:46 06/10/18 21:46 06/10/18 21:46 06/10/18 21:46 Laboratory Results 06/08/18 11:27 06/10/18 20:16 06/09/18 06/10/18 06/11/18 05:59 05:59 05:59 Intake Total 1554 1280 1999 Output Total 4123 4476 1039 Balance -1821 -1070 -400 ICD10 Worksheet Patient Problems: Problems Problem Status Onset Dehydration Acute Nausea and vomiting Acute Acute pyelonephritis Acute Chronic chest pain Acute Nausea Acute Nausea vomiting and diarrhea Acute Neurological deficit present Acute Pyelonephritis Acute UTI (urinary tract infection) Acute Upper abdominal pain Acute
[2018-06-11] MEDS ORDERED: LORazepam 0.5 MG TAB PO ONE ×2 (06:00→10:15)
[2018-06-11] MEDS: PANTOPRAZOLE SODIUM 40 MG TAB PO SCH (08:13)
[2018-06-11] MEDS: DRONABINOL 2.5 MG CAP PO SCH ×2 (08:14→20:42)
[2018-06-11] MEDS: ASPIRIN EC 81 MG TAB PO SCH (08:14)
[2018-06-11] MEDS: BACLOFEN 10 MG TAB PO SCH ×3 (08:14→22:18)
[2018-06-11] MEDS: ENOXAPARIN 40 MG/0.4 ML SYR SC SCH (08:15)
[2018-06-11] MEDS: GABAPENTIN 300 MG CAP PO SCH ×3 (08:15→22:19)
[2018-06-11] MEDS: LIDOCAINE 4%/MENTHOL 1% PATCH TD SCH (08:16)
[2018-06-11] MEDS: LEVOTHYROXINE 100 MCG TAB PO SCH (08:16)
[2018-06-11] MEDS: TOPIRAMATE 100 MG TAB PO SCH ×2 (08:18→20:42)
[2018-06-11] MEDS: POTASSIUM CL 20 MEQ TAB PO SCH (08:18)
[2018-06-11] MEDS: VENLAFAXINE XR 75 MG CAP PO SCH (08:19)
[2018-06-11 10:02] LABS: PLATELET COUNT 248 10^3/uL (150-400)
--- NOTE | 2018-06-11 11:29 | HOSPPROG ---
Hospitalist Progress Note Assessment/Plan: 48 yo female who was admitted with dehydration, N/V/D, and right flank pain. She had been doing well and awaiting placement. Overnight she developed dysarthria, right sided facial droop, and decreased right facial sensation. Today both the dysarthria and the facial droop have resolved. She reports that she had a frontal GALLEGO just before the event. A CT Brain was negative. MRI is pending. Neuro eval is pending *Right facial droop, decreased facial sensation, and dysarthria -resolving -CT brain negative -MRI is pending -Carotid US: no significant blood flow stenosis -will await MRI, Neuro consult, check lipid panel and a1c, check ECHO. For now cont with low dose Aspirin -Query is related to GALLEGO * Dehydration, resolved, no need for further IVF -she had slight hypotension this morning but clinically looks ok. She is drinking. for now cont off IVF * N/V/D: resolved -suspected enteritis -CT abd/pelvis negative, Cdiff ruled out * Spina bifida s/p BREAKING MACHINE OPERATOR shunt * Right flank pain, resolved -CT negative -no abx were given * Neurogenic bladder s/p urostomy * Right BKA due to osteomyelitis *Hypokalemia, replacing per protocol, K level pending *Generalized Weakness: PT/OT cont inpatient w/u is pending Subjective: no cp or sob. no n/v. still with right facial numbness but no droop Objective: Vital Signs Temp Pulse Resp BP Pulse Ox 36.5 C 83 12 87/57 L 95 06/11/18 07:03 06/11/18 07:03 06/11/18 07:03 06/11/18 07:03 06/11/18 07:03 Laboratory Results 06/11/18 05:04 06/11/18 05:09 06/10/18 06/11/18 06/12/18 05:59 05:59 05:59 Intake Total 1280 2000 450 Output Total 2350 3500 Balance -1070 -1500 450 - Physical Exam Constitutional: no apparent distress, chronically ill appearing Eyes: PERRL, EOMI Ears, Nose, Mouth, Throat: moist mucous membranes, hearing normal Cardiovascular: regular rate and rhythym, no murmur, rub, or gallop, systolic murmur Respiratory: no respiratory distress, no rales or rhonchi, clear to auscultation Gastrointestinal: normoactive bowel sounds, soft, non-tender abdomen Skin: warm Neurologic: AAOx3 Psychiatric: interacting appropriately, not anxious, not encephalopathic Lymph, Heme, Immunologic: No petechiae ICD10 Worksheet Patient Problems: Problems Problem Status Onset Dehydration Acute Nausea and vomiting Acute Acute pyelonephritis Acute Chronic chest pain Acute Nausea Acute Nausea vomiting and diarrhea Acute Neurological deficit present Acute Pyelonephritis Acute UTI (urinary tract infection) Acute Upper abdominal pain Acute
--- NOTE | 2018-06-11 11:53 | ASMTCMCOM ---
CM Note CM Note Notes: Spoke to Barrett at [facility]. They could admit patient if she will spend the 30 Medicaid days, if she plans on leaving for [place] and she knows that can not stay with her at the facility. Patient answered positively to these questions. Patient asked about facilities in [place]. We received info from [facility], which is rated better than [facility]. This CM lft message for their admissions. Date Signed: 06/11/2018 11:52 AM Electronically Signed By:Johanna Garza LCSW
--- NOTE | 2018-06-11 12:34 | NEUROPROG ---
Assessment: [id number] - Neurology Consult: - CC: Altered Sensation - HPI: Pt with history of spina bifida post HOSPITALITY SPECIALIST shunt and multiple congenital neurologic deficits admitted to [facility] on 06/05/18 for N/V and flank pain. Pt was treated for dehydration with IVF. The N/V and flank was felt to be from gastroenteritis (per 06/10/18 hospitalist note). On the ventilating expert of pt was noted to have a sudden onset R sided numbness/tingling and facial droop. Pt did report multiple strokes in the past. Pt was on a daily aspirin and lovenox for DVT prophylaxis at that time. Head CT showed no bleed or any acute changes. Carotid U/S showed no significant findings. [place] neurology was contacted and they recommend brain MRI w/o con and neurology evaluation to further evaluate. I initially saw the patient on 06/11/18. She reported early this morning she developed sudden onset right face/arm/leg paresthesias and a sense of right facial weakness. Symptoms are unchanged since then. Neurologic exam on 06/11/18 was normal except for patient reporting right virginia-body feels different than left virginia-body. Brain MRI w/o con on 06/11/18 was normal therefore I do not think her symptoms are from an active stroke, TIA, or ischemia. Given length of symptoms I do not think a seizure is likely either. They are likely paresthesias from her prior brain problems (HOSPITALITY SPECIALIST shunt needed in past, possible prior strokes) or complex migraine and would only require symptomatic treatment if bothersome. No further neurologic w/u needed. Neurology will sign off. Pt can f/u in neurology clinic 1-4 weeks after hospital discharge if she would like symptomatic therapy for the paresthesias. - PMHx: spina bifida status post HOSPITALITY SPECIALIST shunt, arnold-chiari malformation, neurogenic bladder status post urostomy, functional quadriplegia, bipolar, PE, BKA 2nd to osteomyelitis - SHx: homeless FHx: NC - ROS: Pt denied acute fever, total vision loss, active severe chest pain, respiratory failure, total body severe rash, total bowel/bladder incontinence, psychosis, active seizures, or active bleeding - O: VS reviewed General: Alert Eyes: Fundoscopic exam not able to visualize optic disks CV: Heart RRR, no murmur, no carotid bruit Lungs: Clear to auscultation bilaterally, no rhonchi or rales Neuro: - Mental: . Oriented x person/place/date . concentration appears normal . speech fluency/comprehension normal . memory appears normal . fund of knowledge appear intact - Cranial Nerves: . II: PERRL, VFFTC . III/IV/: EOMI, no nystagmus, normal smooth pursuits, no Ptosis . V: right face with decreased sensation due to left . VII: face symmetric to eye closure and smile . VIII: hearing intact to conversation . IX/X: uvula raises symmetrically . XI: SCM 5/5 B/L strength . XII: tongue protrudes midline w/nl strength - Motor: . Tone: normal tone in all 4 extremity . Strength: no pronator drift, strength 5/5 throughout - Reflexes: B/L bic 2/4 - Sensory: all 4 extremity intact to light touch but patient feels right arm/ leg feels different than left side - Coord: [id number] wnl, NATALIE wnl - Gait: pt cannot walk due to leg amputation in past - Labs: 06/11/18- Potassium 4.2 - Rads: 03/30/17- Brain MRI w/o con: No evidence for acute infarct. 2. 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 3. Ventriculoperitoneal shunt catheter in stable position. No findings to suggest shunt malfunction. - 06/07/18- Head CT w/o: stable positioning of ventriculostomy catheter, stable ventriculomegaly, encephalomalacia in R occipital horn, congenital absence of corpus callosum, cerebellar tonsils noted to extend caudal to foramen magnum consistent with Arnold Chiari 1 malformation, prior decompressive surgery, no acute changes and stable to 2016 (I personally visualized the images on 06/11/18) - 06/11/18- Head CT w/o con: no acute change since 06/07/18 - 06/11/18- Carotid U/S: There is no sonographic evidence of a hemodynamically significant ICA stenosis. Patent, antegrade vertebral arteries. - 06/11/18- Brain MRI w/o con: Stable chronic ventriculomegaly with corpus callosal agenesis and a history of a Chiari I malformation with craniocervical decompression. 2. There is no MR evidence of an acute or subacute infarction, or substantial change from prior MR imaging dated 03/30/2017. - Assessment: 1. Paresthesias in right virginia-body on 06/11/18 lasting > 8 hours: Neurologic exam on 06/11/18 was normal except for patient reporting right virginia-body feels different than left virginia-body. Brain MRI w/o con on 06/11/18 was normal in setting of symptoms therefore I do not think her symptoms are from an active stroke, TIA, or ischemia. Given length of symptoms I do not think a seizure is likely either. They are likely paresthesias from her prior brain problems (HOSPITALITY SPECIALIST shunt needed in past, possible prior strokes) or complex migraine and would only require symptomatic treatment if bothersome. No further neurologic w/u needed. Neurology will sign off. Pt can f/u in neurology clinic 1-4 weeks after hospital discharge if she would like symptomatic therapy for the paresthesias. - 2. Prior reported strokes: None seen on brain MRI so unclear what prior events were but given uncertainty I would recommend continued use of aspirin and modification of stroke risk factors. - Plan: - Agree with aspirin given her report of prior stroke but I do not think her current symptoms are from active stroke - GIven prior reported strokes I would recommend working closely with PCM to ensure blood pressure < 140/90, H1AC < 7.0, and LDL < 70 - No further neurologic w/u needed, neurology will sign off - Pt can f/u in neurology clinic in 1-4 weeks if paresthesias remain bothersome Objective: Vital Signs Temp Pulse Resp BP Pulse Ox 36.5 C 83 12 87/57 L 95 06/11/18 07:03 06/11/18 07:03 06/11/18 07:03 06/11/18 07:03 06/11/18 07:03 Laboratory Results 06/11/18 05:04 06/11/18 05:09 06/10/18 06/11/18 06/12/18 05:59 05:59 05:59 Intake Total 1280 2000 450 Output Total 2350 3500 Balance -1070 -1500 450 Allergies/Adverse Reactions: ondansetron HCl [From Zofran (as hydrochloride)] Allergy (Severe, Verified 06/05 05:42) Other-Enter Comments ketorolac tromethamine [From Toradol] Allergy (Intermediate, Verified 06/05/18 15:32) Other-Enter Comments amoxicillin trihydrate [From Augmentin] Allergy (Verified 06/05/18 05:42) levofloxacin Allergy (Verified 06/05/18 16:09) metronidazole [From Flagyl] Allergy (Verified 06/05/18 05:42) potassium clavulanate [From Augmentin] Allergy (Verified 06/05/18 05:42) tramadol Allergy (Verified 06/05/18 05:42) vancomycin Allergy (Verified 06/05/18 05:42)
--- NOTE | 2018-06-11 15:00 | ECHO ---
[email or web address] [address] [address] Main: [phone] Fax: Transthoracic Echocardiogram Name: ELICIA HAMILTON MR#: [id number] Study Date: 06/11/2018 Study Time: 11:39 AM Date of : 1970 Age: 48 year(s) Height: 149.9 cm (59 in.) Weight: 63.5 kg (140 lb.) BSA: 1.58 m2 Gender: Female Examination: Echo Indication: possible stroke and history of stroke Image Quality: Technically Difficult Contrast: Requested by: Antelmo Pizano BP: 87 mmHg/57 mmHg Heart Rate: Rhythm: Indication: possible stroke and history of stroke Procedure Staff Lace Weaver: Margie De La Torre [facility] Reading Physician: Sukhwinder Parks MD Requesting Provider: Conclusions: Normal size left ventricle. Normal global systolic LV function. EF is 55 %. Grade 1 diastolic dysfunction (abnormal relaxation). Normal size right ventricle. The left atrium is normal in size. The right atrium is normal in size. The mitral valve is normal in appearance and function. The aortic valve is tri-leaflet and functions normally. The tricuspid valve is normal in appearance and function. Right ventricular systolic pressure measures 28mmHg. There is pericardial fat. No clear cardiac source of CVA. Consider RENY with agitated saline contrast study. Measurements: Chambers Valvular Assessment AV/MV Valvular Assessment TV/PV Normal Normal Normal Name Value Range Name Value Range Name Value Range Ao Kath (MM): 2.2 cm (2.2 cm-3.7 AV Vmax: 1.22 m/s (1 m/s-1.7 TR Vmax: 2.39 mm/s ( - ) cm) m/s) TR PGmax: 23 mmHg ( - ) IVSd (2D): 1.0 cm (0.6 cm-1.1 AV maxP mmHg ( - ) syst. PAP: 28 mmHg ( - ) cm) LVOT Vmax: 0.94 m/s (0.7 m/s-1.1 PV Vmax: 1.33 m/s (0.6 m/s-0.9 LVDd (2D): 3.2 cm (3.9 cm-5.3 m/s) m/s) cm) MV A Vmax: 0.85 m/s ( - ) PV PGmax: 7 mmHg ( - ) LVDs (2D): 1.9 cm (2.1 cm-4 cm) LVPWd (2D): 0.8 cm ( - ) LVEF (BP): 55 % (>=55 %) RVDd(2D): 2.6 cm (1.9 cm-3.8 cmmm) Patient: ELICIA HAMILTON Study Date: 06/11/2018 Page 1 of 2 11:39 AM Continued Measurements: Chambers Valvular Assessment AV/MV Valvular Assessment TV/PV Name Value Name Value Name Value LADs Lon.0 cm MV DecTime: 187 m/s CVP (est.): 5 mmHg LA Area: 11.8 cm2 MV E' Septal: 0.04 m/s LA Volume: 28 ml MV E/E' Septal: 15.90 LA Volume Index: 17.7 ml/m2 MV E/E' Lateral: 10.40 TAPSE: 2.0 cm RA Area: 10.3 cm2 Additional Vessels Name Value Ao Ascendin.9 cm Findings: Left Ventricle: Normal size left ventricle. No LV hypertrophy. Normal global systolic LV function. EF is 55 %. No regional wall motion abnormality. Grade 1 diastolic dysfunction (abnormal relaxation). Right Ventricle: Normal size right ventricle. Normal RV function. Left Atrium: The left atrium is normal in size. Normal appearing atrial septum. Right Atrium: The right atrium is normal in size. Mitral Valve: The mitral valve is normal in appearance and function. There is no significant mitral valve regurgitation. No mitral stenosis is present. Aortic Valve: The aortic valve is tri-leaflet and functions normally. There is no aortic valve regurgitation. No aortic valve stenosis is present. Tricuspid Valve: The tricuspid valve is normal in appearance and function. Mild tricuspid regurgitation is present. Right ventricular systolic pressure measures 28mmHg. The pulmonary artery pressure is normal. Pulmonic Valve: Pulmonary valve not well visualized. There is no pulmonic regurgitation seen. Aorta: Normal size aortic root measuring 2.2 cm. Normal size ascending aorta measuring 2.9 cm. IVC: Normal size and course of the IVC. Pericardium: No pericardial effusion. There is pericardial fat. (No Signature Object) Patient: ELICIA HAMILTON Study Date: 06/11/2018 Page 2 of 2 11:39 AM [id number]
[2018-06-11] MEDS: oxyCODONE IR 5 MG TAB PO PRN (18:51)
[2018-06-11] MEDS: ATORVASTATIN CALCIUM 40 MG TAB PO SCH (20:42)
[2018-06-11] MEDS: PATCH REMOVAL 1 EA PATCH TD SCH (22:21)
[2018-06-12] MEDS: PROMETHAZINE HCL 25 MG TAB PO PRN ×2 (01:11→01:41)
[2018-06-12] MEDS: LEVOTHYROXINE 100 MCG TAB PO SCH (06:02)
--- NOTE | 2018-06-12 08:12 | CPEKG ---
Test Reason : OPEN Blood Pressure : / mmHG Vent. Rate : 106 BPM Atrial Rate : 106 BPM P-R Int : 132 ms QRS Dur : 096 ms QT Int : 334 ms P-R-T Axes : 048 062 032 degrees QTc Int : 444 ms Sinus tachycardia Possibe old inferior myocardial infarction (Q wave noted) Confirmed by Henrry Shafer ([id number]) on 06/12/2018 8:12:12 AM Referred By: Confirmed By:Henrry Shafer
[2018-06-12] MEDS: PANTOPRAZOLE SODIUM 40 MG TAB PO SCH (08:20)
[2018-06-12] MEDS: DRONABINOL 2.5 MG CAP PO SCH ×2 (08:20→19:56)
[2018-06-12] MEDS ORDERED: POTASSIUM CL 10 MEQ TAB PO ONE (08:22)
[2018-06-12] MEDS: VENLAFAXINE XR 75 MG CAP PO SCH (08:40)
[2018-06-12] MEDS: BACLOFEN 10 MG TAB PO SCH ×3 (08:40→20:58)
[2018-06-12] MEDS: TOPIRAMATE 100 MG TAB PO SCH ×2 (08:40→19:56)
[2018-06-12] MEDS: GABAPENTIN 300 MG CAP PO SCH ×3 (08:41→20:58)
[2018-06-12] MEDS: POTASSIUM CL 20 MEQ TAB PO SCH (08:41)
[2018-06-12] MEDS: ASPIRIN EC 81 MG TAB PO SCH (08:41)
[2018-06-12] MEDS: ENOXAPARIN 40 MG/0.4 ML SYR SC SCH (08:42)
[2018-06-12] MEDS: LIDOCAINE 4%/MENTHOL 1% PATCH TD SCH (08:42)
--- NOTE | 2018-06-12 11:48 | HOSPPROG ---
Hospitalist Progress Note Assessment/Plan: 48 yo female who was admitted with dehydration, N/V/D, and right flank pain. She had been doing well and awaiting placement. Overnight she developed dysarthria, right sided facial droop, and decreased right facial sensation. Today both the dysarthria and the facial droop have resolved. She reports that she had a frontal GALLEGO just before the event. A CT Brain was negative. MRI is pending. Neuro eval is pending *Right facial droop, decreased facial sensation, and dysarthria -resolved -CT and MRI brain negative -Carotid US: no significant blood flow stenosis -Neuro consult consulted on 06/11 who did not believe this was related to stroke/ ischemia after reviewing imaging, they will f/u patient as OP * Dehydration, resolved, no need for further IVF -she had slight hypotension this morning but clinically looks ok. She is drinking. 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 * Right flank pain, resolved -CT negative -no abx were given * Neurogenic bladder s/p urostomy * Right BKA due to osteomyelitis *Hypokalemia, replacing per protocol, K level pending *Generalized Weakness: PT/OT cont inpatient Dispo: Awaiting placement, CM notified Subjective: Patient reports no complaints this AM Objective: Vital Signs Temp Pulse Resp BP Pulse Ox 36.4 C 105 H 16 117/77 99 06/12/18 11:19 06/12/18 11:19 06/12/18 11:19 06/12/18 11:19 06/12/18 11:19 Laboratory Results 06/11/18 05:04 06/12/18 06:39 06/11/18 06/12/18 06/13/18 05:59 05:59 05:59 Intake Total 1999 1550 800 Output Total 3500 4400 600 Balance -1500 -2850 200 - Physical Exam Constitutional: no apparent distress Eyes: PERRL Ears, Nose, Mouth, Throat: moist mucous membranes Cardiovascular: regular rate and rhythym Respiratory: no respiratory distress Gastrointestinal: soft, non-tender abdomen Genitourinary: no bladder fullness Skin: warm Musculoskeletal: full muscle strength Neurologic: AAOx3, No weakness Psychiatric: interacting appropriately ICD10 Worksheet Patient Problems: Problems Problem Status Onset Dehydration Acute Nausea and vomiting Acute Acute pyelonephritis Acute Chronic chest pain Acute Nausea Acute Nausea vomiting and diarrhea Acute Neurological deficit present Acute Pyelonephritis Acute UTI (urinary tract infection) Acute Upper abdominal pain Acute
--- NOTE | 2018-06-12 11:56 | ASMTCMCOM ---
CM Note CM Note Notes: Spoke with patient and her first choice out of accepting facilities is [facility]. She would like a private room if at all possible and also female nurses and aides due to her PTSD. CM will pass this on to the facility although they may not be able to accomodate these requests completely. Spoke with Norma and there is an omission of patient's Bipolar diagnosis on the Pasrr and OBRA authorization. Nirav is out of the office this week, so the paperwork was faxed to Lucy Salamanca who will correct the forms and return them to us. Norma states as soon as this is complete they can take the patient. CM will follow. Date Signed: 06/12/2018 11:55 AM Electronically Signed By:Joan Bonds LCSW
--- NOTE | 2018-06-12 14:34 | ASMTCMCOM ---
CM Note CM Note Notes: Pts case discussed w/ Dr. Aguilar and VICTORINO Smiley. CM was notified by [facility] that pt does not have any medicare days left prompting a ultc-100. ULTC-100 completed and faxed over to [facility]. [facility] will make a final decision once pt has been assessed by [facility]. CM met w/ pt for dispo planning. Pt reports that she receives about $780/month from her SSDI. Pt reports that she called Medicare and reports that she has 1 medicare day left. Pt was adamant about using this 1 medicare day. Barrett from [facility] stopped by and informed CM that pt has previously stayed at [facility] and left AMA after 15 days. Barrett also reported that pts snuck into [facility] during the night even though pt was told multiple times that he could not stay there. [facility] has declined pt. [facility] is considering although unlikely to accept. CM to follow. Plan: TBD Date Signed: 06/12/2018 02:33 PM Electronically Signed By:МАРИНА Arauz
[2018-06-12] MEDS: ATORVASTATIN CALCIUM 40 MG TAB PO SCH (19:56)
[2018-06-12] MEDS: PATCH REMOVAL 1 EA PATCH TD SCH (20:00)
[2018-06-12] MEDS: oxyCODONE IR 5 MG TAB PO PRN (20:58)
[2018-06-13] MEDS: PROMETHAZINE HCL 25 MG TAB PO PRN ×2 (00:05→00:42)
[2018-06-13] MEDS ORDERED: CEPACOL LOZENGE PO PRN (02:10)
[2018-06-13] MEDS: oxyCODONE IR 5 MG TAB PO PRN ×3 (02:49→20:53)
[2018-06-13] MEDS: LEVOTHYROXINE 100 MCG TAB PO SCH (05:25)
[2018-06-13] MEDS: PANTOPRAZOLE SODIUM 40 MG TAB PO SCH (07:39)
[2018-06-13] MEDS: DRONABINOL 2.5 MG CAP PO SCH ×2 (07:40→20:53)
[2018-06-13] MEDS: LIDOCAINE 4%/MENTHOL 1% PATCH TD SCH (09:00)
[2018-06-13] MEDS: GABAPENTIN 300 MG CAP PO SCH ×3 (09:01→20:54)
[2018-06-13] MEDS: VENLAFAXINE XR 75 MG CAP PO SCH (09:01)
[2018-06-13] MEDS: BACLOFEN 10 MG TAB PO SCH ×3 (09:01→20:52)
[2018-06-13] MEDS: ENOXAPARIN 40 MG/0.4 ML SYR SC SCH (09:01)
[2018-06-13] MEDS: POTASSIUM CL 20 MEQ TAB PO SCH (09:03)
[2018-06-13] MEDS: TOPIRAMATE 100 MG TAB PO SCH ×2 (09:03→20:54)
[2018-06-13] MEDS: ASPIRIN EC 81 MG TAB PO SCH (09:03)
--- NOTE | 2018-06-13 11:39 | HOSPPROG ---
Hospitalist Progress Note Assessment/Plan: 48 yo female who was admitted with dehydration, N/V/D, and right flank pain. She had been doing well and awaiting placement. Overnight she developed dysarthria, right sided facial droop, and decreased right facial sensation. Today both the dysarthria and the facial droop have resolved. She reports that she had a frontal GALLEGO just before the event. A CT Brain was negative. MRI is pending. Neuro eval is pending *Right facial droop, decreased facial sensation, and dysarthria -resolved -CT and MRI brain negative -Carotid US: no significant blood flow stenosis -Neuro consult consulted on 06/11 who did not believe this was related to stroke/ ischemia after reviewing imaging, they will f/u patient as OP * Dehydration, resolved, no need for further IVF -She is drinking. for now cont off IVF * N/V/D: resolved -suspected enteritis -CT abd/pelvis negative, Cdiff ruled out * Spina bifida s/p HEAVY MACHINERY OPERATOR shunt * Right flank pain, resolved -CT negative -no abx were given * Neurogenic bladder s/p urostomy * Right BKA due to osteomyelitis *Hypokalemia, replacing per protocol, K level pending *Generalized Weakness: PT/OT cont inpatient Dispo: Awaiting placement, CM notified Subjective: Patient reports mild R sided back pain this AM Objective: Vital Signs Temp Pulse Resp BP Pulse Ox 36.5 C 100 20 116/75 100 06/13/18 07:33 06/13/18 07:33 06/13/18 07:33 06/13/18 07:33 06/13/18 07:33 Laboratory Results 06/11/18 05:04 06/12/18 19:00 06/12/18 06/13/18 06/14/18 05:59 05:59 05:59 Intake Total 1550 2400 Output Total 4400 3100 175 Balance -2850 -700 -175 - Physical Exam Constitutional: no apparent distress, unkempt Eyes: PERRL Ears, Nose, Mouth, Throat: moist mucous membranes Cardiovascular: regular rate and rhythym Respiratory: no respiratory distress Gastrointestinal: soft, non-tender abdomen Genitourinary: no bladder tenderness Skin: warm Musculoskeletal: full muscle strength Neurologic: AAOx3 Psychiatric: anxious, poor insight ICD10 Worksheet Patient Problems: Problems Problem Status Onset Dehydration Acute Nausea and vomiting Acute Acute pyelonephritis Acute Chronic chest pain Acute Nausea Acute Nausea vomiting and diarrhea Acute Neurological deficit present Acute Pyelonephritis Acute UTI (urinary tract infection) Acute Upper abdominal pain Acute
--- NOTE | 2018-06-13 12:28 | ASMTCMCOM ---
CM Note CM Note Notes: Spoke with Malgorzata from [facility] and patient's ULTC has triggered a level II PASRR. Since patient is psychiatrically stable it may be ok'ed however if they decide to evaluate it could be another 2-3 days before an outcome. Patient has been turned down by all SNF's except [facility]. [facility] based their first acceptance on Medicare but when they were informed patient's Medicare days were all used and placement would have to be under Medicaid, their response may be different.[facility] will evaluate if Medicaid approves. CM will follow. Date Signed: 06/13/2018 12:28 PM Electronically Signed By:Joan Bonds LCSW
--- NOTE | 2018-06-13 16:09 | ASMTCMCOM ---
CM Note CM Note Notes: Patient was approved for 60 days per [facility] Salamanca. Christopher at [facility] patient can be set up for d/c tomorrow in the morning. Katie says CM to call in the AM to make final transport and d/c arrangements. They want us to remind the patient she has to stay for 30 days for them to get paid. CM will follow. Date Signed: 06/13/2018 04:08 PM Electronically Signed By:Joan Bonds LCSW
[2018-06-13] MEDS: ATORVASTATIN CALCIUM 40 MG TAB PO SCH (20:54)
[2018-06-13] MEDS: PATCH REMOVAL 1 EA PATCH TD SCH (22:03)
[2018-06-14] MEDS: LEVOTHYROXINE 100 MCG TAB PO SCH (05:27)
[2018-06-14 08:57] VITALS: BP 100/65
[2018-06-14] MEDS: LIDOCAINE 4%/MENTHOL 1% PATCH TD SCH (09:21)
[2018-06-14] MEDS: TOPIRAMATE 100 MG TAB PO SCH (09:23)
[2018-06-14] MEDS: ENOXAPARIN 40 MG/0.4 ML SYR SC SCH (09:23)
[2018-06-14] MEDS: VENLAFAXINE XR 75 MG CAP PO SCH (09:25)
[2018-06-14] MEDS: DRONABINOL 2.5 MG CAP PO SCH (09:26)
[2018-06-14] MEDS: POTASSIUM CL 20 MEQ TAB PO SCH (09:26)
[2018-06-14] MEDS: ASPIRIN EC 81 MG TAB PO SCH (09:27)
[2018-06-14] MEDS: BACLOFEN 10 MG TAB PO SCH (09:28)
[2018-06-14] MEDS: PANTOPRAZOLE SODIUM 40 MG TAB PO SCH (09:28)
[2018-06-14] MEDS: GABAPENTIN 300 MG CAP PO SCH (09:28)
--- NOTE | 2018-06-14 11:03 | PDIAF ---
- Diagnosis Code Status: Full Code - Medication Management Discharge Medications: Medications to Continue on Transfer Atorvastatin Calcium [Lipitor 40 mg (*)] 40 mg PO HS 08/13/16 [Last Taken ] Gabapentin [Neurontin 300 MG (*)] 300 mg PO TID 08/13/16 [Last Taken 01/20/18] Aspirin EC [Aspirin EC 81 mg (*)] 81 mg PO DAILY 06/05/18 [Last Taken Unknown] Baclofen [Baclofen 10 mg (*)] 5 mg PO TID 06/05/18 [Last Taken Unknown] Diclofenac Sodium 1% [Voltaren Gel (*)] 1 christiano TP QID PRN 06/05/18 [Last Taken Unknown] Dronabinol [Marinol 2.5 MG (*)] 2.5 mg PO BIDAC 06/05/18 [Last Taken Unknown] Herbals/Supplements -Info Only 1 ea PO DAILY 06/05/18 [Last Taken Unknown] Levothyroxine Sodium [Levoxyl] 100 mcg PO DAILY06 06/05/18 [Last Taken Unknown] Omeprazole 20 mg PO DAILY@0730 06/05/18 [Last Taken Unknown] Potassium Chloride [Klor-Con 10] 20 meq PO DAILY 06/05/18 [Last Taken Unknown] Promethazine HCl [Phenergan 12.5mg tab] 12.5 mg PO Q8H PRN 06/05/18 [Last Taken Unknown] Saliva Substitute Comb. No.12 [Oral Relief Dry Mouth] 1 christiano PO QID PRN 06/05/18 [Last Taken Unknown] Sennosides [Senna Lax] 8.6 mg PO BID 06/05/18 [Last Taken Unknown] Topiramate [Topamax 100MG (*)] 100 mg PO BID 06/05/18 [Last Taken Unknown] Venlafaxine Xr [Effexor Xr 75MG (*)] 150 mg PO DAILY 06/05/18 [Last Taken Unknown] oxyCODONE HCL [Roxicodone] 5 mg PO DAILY PRN 06/05/18 [Last Taken Unknown] Discharge Medications: Refer to the Discharge Home Medication list for PRN reason. 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
--- NOTE | 2018-06-14 12:14 | ASMTLACE ---
MARIEE Length of stay for Answers: 7-13 days current admission Acuity / Level of Answers: Yes Care: Did the patient have an inpatient admission? Comorbidities - select Answers: Cerebrovascular disease all that apply (CVA, TIA, aneurysms, vasc ular dementia) Opioid dependence / Chronic pain Other Notes: Spina bifida; Hx of PE # of Emergency department Answers: 3-4 visits in the last 6 months Social determinants Answers: Mental health diagnosis (anxiety, depression, pers onality disorders, etc.) Score: 20 Date Signed: 06/14/2018 11:38 AM Electronically Signed By:Joan Bonds LCSW
--- NOTE | 2018-06-14 12:24 | ASMTDCNOTE ---
Case Management Discharge Discharge Order Complete? Answers: Yes Patient to Obtain Answers: Other Notes: [facility] Medications Transportation Arranged Answers: Other Notes: Wheelchair van set up b y Christopher Transport will Pick (Date 06/14/2018 12:00 AM & Time) Case Management Transport Answers: Yes Notes: Transport by [facility] Form Complete Faxed Final Orders Answers: Yes Notes: [facility] Agency/Facility Transfer Answers: Yes Notes: [facility] Family Notified Answers: Yes Notes: Patient and notified Discharge Comments Notes: Patient is ready for discharge today to [facility]. Patient has agreed to stay the 30 days and understands placement is for her only and does not include her . Placement is under Medicaid due to patient having used all of her Medicare days except one. Transport set up by Christopher at [facility]. Patient provided with clothing. No further needs. Date Signed: 06/14/2018 11:49 AM Electronically Signed By:Joan Bonds LCSW
--- NOTE | 2018-06-14 12:31 | PDDCSUM ---
Discharge Summary Discharge Summary: Date of Admission: 06/06/2018 Date of Discharge: 06/14/2018 Consults: Neurology Procedure: Brain MRI Followup: Neurology, PCP Hospital Course Problem List: 48 yo female who was admitted with dehydration, N/V/D, and right flank pain. *Right facial droop, decreased facial sensation, and dysarthria -resolved -CT and MRI brain negative -Carotid US: no significant blood flow stenosis -Neuro consult consulted on 06/11 who did not believe this was related to stroke/ ischemia after reviewing imaging, they will f/u patient as OP * Dehydration, resolved, no need for further IVF -She is drinking. 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
--- NOTE | 2018-06-15 13:52 | ASDISCHSUM ---
Discharge Information Plan Status:SNF Medically Cleared to Leave:06/14/2018 Discharge Date:06/14/2018 01:40 PM D/C Disposition:Nursing Home Facility ADT D/C Disposition:Nursing Home Facility Projected Discharge Date:06/14/2018 11:00 AM Transportation at D/C:Wheelchair Van Discharge Delay Reason: Follow-Up Date:06/14/2018 11:00 AM Discharge Slot:2 - 12:01 pm - 18:00 pm Final Diagnosis:UTI, dehydration,nausea and vomiting, chronic chest pain Placement Information Referral Type:*Penitentiary/SNF Referral ID:[id number] Provider Name:[facility] Address 1:[address] Address 2: [facility]:[place] Selection Factors: State:[place] Patient Contact Information Contact Name:FRED Relationship: Address:[address] [employer] Phone: [facility]:[place] Alternate Phone: State/Zip Code:[place] [address] Email: Financial Information Financial Class:Medicare Primary Plan Desc:MEDICARE INPATIENT Primary Plan Number:[id number] Secondary Plan Desc:[place] Secondary Plan Number:[id number] Assessment Information LACE LACE Length of stay for Answers: 7-13 days current admission Acuity / Level of Answers: Yes Care: Did the patient have an inpatient admission? Comorbidities - select Answers: Cerebrovascular disease all that apply (CVA, TIA, aneurysms, vasc ular dementia) Opioid dependence / Chronic pain Other Notes: Spina bifida; Hx of PE # of Emergency department Answers: 3-4 visits in the last 6 months Social determinants Answers: Mental health diagnosis (anxiety, depression, pers onality disorders, etc.) Score: 20 Date Signed: 06/14/2018 11:38 AM Electronically Signed By:Joan Bonds LCSW [facility] Initial CM Assessment Living Arrangements What is your living Answers: With Spouse arrangement? Who do you live with? Type Of Residence What kind of residence do Answers: House you live in? Discharge Plan Comments Coordination Status Comments Notes: Pt is a 48 y/o female admitted for dehydration. Therapies have been ordered and awaiting recommendations. Needs are TBD at this time. CM to follow. Plan: TBD Date Signed: 06/06/2018 01:00 PM Electronically Signed By:МАРИНА Arauz [facility] CM Progress Note CM Note CM Note Notes: CM spoke to Dr. Shaikh regarding d/c POC. CM met w/ pt and family for dispo planning. Pt and family are requesting for a SNF. Pt previously lived at [facility] before moving to [place]. Pt and family would like referrals made to [facility], [facility] and [facility]. Referrals sent. CM completed triggered pasrr and faxed it to Nirav Arzate. CM to follow. Plan: SNF Date Signed: 06/06/2018 05:08 PM Electronically Signed By:МАРИНА Arauz [facility] CM Progress Note CM Note CM Note Notes: Spoke w/pt and re; dc poc. Barrett from [facility] here, still reviewing pt. Unsure if they will accept pt b/c the last time she was there was under her Medicaid and she left after 2 weeks. CM checked with Kathy in , she says pt has Medicare A+B and Medicaid. Triggered pasrr fax attached and sent to DC Plan: SNF Date Signed: 06/09/2018 03:48 PM Electronically Signed By:Jeanna Mei RN [facility] CM Progress Note CM Note CM Note Notes: Spoke with provider, pt and today. Pt is medically ready for discharge any day pending placement. Pt and amenable to any facility in the [facility] preferably with LTC possibility. Barrett at [facility] is having her case reviewed and will have an answer on Tuesday. She has hx of leaving AMA while still on Medicaid, but now she is also on Medicare Part A and B. Several other referrals were sent today, but no acceptance yet. Messages left for [facility] and [facility]. D/C Plan: SNF pending acceptance in facility with LTC as well Date Signed: 06/10/2018 04:29 PM Electronically Signed By:Teresa Campos [facility] CM Progress Note CM Note CM Note Notes: Spoke to Barrett at [facility]. They could admit patient if she will spend the 30 Medicaid days, if she plans on leaving for [place] and she knows that can not stay with her at the facility. Patient answered positively to these questions. Patient asked about facilities in [place]. We received info from [facility], which is rated better than [facility]. This lft message for their admissions. Date Signed: 06/11/2018 11:52 AM Electronically Signed By:Johanna Garza LCSW [facility] CM Progress Note CM Note CM Note Notes: Spoke with patient and her first choice out of accepting facilities is [facility]. She would like a private room if at all possible and also female nurses and aides due to her PTSD. CM will pass this on to the facility although they may not be able to accomodate these requests completely. Spoke with [facility] and there is an omission of patient's Bipolar diagnosis on the Pasrr and OBRA authorization. Nirav is out of the office this week, so the paperwork was faxed to Lucy Salamanca who will correct the forms and return them to us. Norma states as soon as this is complete they can take the patient. CM will follow. Date Signed: 06/12/2018 11:55 AM Electronically Signed By:Joan Bonds LCSW [facility] CM Progress Note CM Note CM Note Notes: Pts case discussed w/ Dr. Aguilar and VICTORINO Smiley. CM was notified by [facility] that pt does not have any medicare days left prompting a ultc-100. ULTC-100 completed and faxed over to [facility]. [facility] will make a final decision once pt has been assessed by [facility]. CM met w/ pt for dispo planning. Pt reports that she receives about $780/month from her SSDI. Pt reports that she called Medicare and reports that she has 1 medicare day left. Pt was adamant about using this 1 medicare day. Barrett from [facility] stopped by and informed CM that pt has previously stayed at [facility] and left AMA after 15 days. Barrett also reported that pts snuck into [facility] during the night even though pt was told multiple times that he could not stay there. [facility] has declined pt. [facility] is considering although unlikely to accept. CM to follow. Plan: TBD Date Signed: 06/12/2018 02:33 PM Electronically Signed By:МАРИНА Arauz [facility] Progress Note CM Note CM Note Notes: Spoke with Malgorzata from [facility] and patient's ULTC has triggered a level II PASRR. Since patient is psychiatrically stable it may be ok'ed however if they decide to evaluate it could be another 2-3 days before an outcome. Patient has been turned down by all SNF's except [facility]. [facility] based their first acceptance on Medicare but when they were informed patient's Medicare days were all used and placement would have to be under Medicaid, their response may be different.[facility] will evaluate if Medicaid approves. CM will follow. Date Signed: 06/13/2018 12:28 PM Electronically Signed By:Joan Bonds LCSW [facility] Progress Note CM Note CM Note Notes: Patient was approved for 60 days per Lucy Salamanca. Christopher at [facility] states patient can be set up for d/c tomorrow in the morning. Katie says [facility] to call in the AM to make final transport and d/c arrangements. They want us to remind the patient she has to stay for 30 days for them to get paid. CM will follow. Date Signed: 06/13/2018 04:08 PM Electronically Signed By:Joan Bonds LCSW Case Management Discharge Plan Note Case Management Discharge Discharge Order Complete? Answers: Yes Patient to Obtain Answers: Other Notes: [facility] Medications Transportation Arranged Answers: Other Notes: Wheelchair van set up b y [facility] Transport will Pick (Date 06/14/2018 12:00 AM & Time) Case Management Transport Answers: Yes Notes: Transport by [facility] Form Complete Faxed Final Orders Answers: Yes Notes: [facility] Agency/Facility Transfer Answers: Yes Notes: [facility] Family Notified Answers: Yes Notes: Patient and notified Discharge Comments Notes: Patient is ready for discharge today to [facility]. Patient has agreed to stay the 30 days and understands placement is for her only and does not include her . Placement is under Medicaid due to patient having used all of her Medicare days except one. Transport set up by Christopher at [facility] Patient provided with clothing. No further needs. Date Signed: 06/14/2018 11:49 AM Electronically Signed By:Joan Bonds LCSW Intervention Information Intervention Type:*Incorrect Registration Date of Service:06/05/2018 12:55 PM Patient Type:Inpatient Staff Member:VICTORINO Alberts, Rosa Hours: Discipline: Severity: Comment: Intervention Type:*DAY-Signed Date of Service:06/05/2018 01:41 PM Patient Type:Observation Staff Member:Aniya Morales Hours: Discipline: Severity: Comment: Intervention Type:*IM-Signed Date of Service:06/14/2018 12:19 PM Patient Type:Inpatient Staff Member:Aniya Morales Hours: Discipline: Severity: Comment:
== END 2018-06-14 13:40 | DRG 392 ==
LOC: INTOOBSV 08:38 → F3E 10:37 → OBSVTOIN 06-06 18:19
PROVIDERS: ADMIT Internal Medicine; ATTEND Internal Medicine
DX: K52.9 Noninfective gastroenteritis and colitis, unspecified (principal); Q07.03 Arnold-Chiari syndrome with spina bifida and hydrocephalus; E86.0 Dehydration; R29.810 Facial weakness; R47.1 Dysarthria and anarthria; E87.6 Hypokalemia; N31.9 Neuromuscular dysfunction of bladder, unspecified; Z98.2 Presence of cerebrospinal fluid drainage device; Z89.511 Acquired absence of right leg below knee; Z86.711 Personal history of pulmonary embolism; Z59.0 Homelessness
CPT/HCPCS: 96374; 97162-GP; 97165-GO; 97530-GO; 97530-GP; 97535-GO; G0378; G8978-GP-CJ; G8979-GP-CI; G8987-GO-CJ; G8988-GO-CI; J1650; J2060; J2550; J3475; Q9967